=== PATIENT | female | born 1970 | race African-American/Black ===

== ENCOUNTER 2020-11-28 12:28 | Outpatient (REF) | payer MEDICAID, SELFPAY ==
--- NOTE | ~2020-11-28 | US_ITS ---
EXAMINATION: ULTRASOUND PELVIS COMPLETE. CLINICAL INFORMATION: Dyspnea and pneumonia COMPARISON: None TECHNIQUE: Transabdominal and transvaginal ultrasound the pelvis is performed. FINDINGS: The uterus is anteverted measuring 9.0 cm in length, 4.1 cm in AP and 4.1 cm in transverse dimension. The endometrial thickness is 0.3 cm. Right ovary measures 2.2 x 2.1 x 1.6 cm and volume 3.9 mL. It appears unremarkable. Left ovary measures 2.2 x 2.3 x 1.9 cm and volume 5.0 mL. It appears unremarkable. There is no free fluid in the cul-de-sac. US/US pelvic complete IMPRESSION: The uterus and ovaries are unremarkable.
--- NOTE | ~2020-11-28 | US_ITS ---
EXAMINATION: ULTRASOUND PELVIS COMPLETE. CLINICAL INFORMATION: Dyspnea and pneumonia COMPARISON: None TECHNIQUE: Transabdominal and transvaginal ultrasound the pelvis is performed. FINDINGS: The uterus is anteverted measuring 9.0 cm in length, 4.1 cm in AP and 4.1 cm in transverse dimension. The endometrial thickness is 0.3 cm. Right ovary measures 2.2 x 2.1 x 1.6 cm and volume 3.9 mL. It appears unremarkable. Left ovary measures 2.2 x 2.3 x 1.9 cm and volume 5.0 mL. It appears unremarkable. There is no free fluid in the cul-de-sac. US/US transvaginal IMPRESSION: The uterus and ovaries are unremarkable.
== END 2020-11-28 12:29 | disposition home or self-care (01) ==
LOC: HO.US 12:28
PROVIDERS: PCP Registered Nurse; Visit Provider Registered Nurse
DX: N94.6 Dysmenorrhea, unspecified (principal); Z71.89 Other specified counseling
CPT/HCPCS: 76830; 76856

== ENCOUNTER → 2021-12-25 10:30 | Outpatient (BNVA) | payer MEDICAID, SELFPAY | PROVIDERS: PCP Registered Nurse Community Health; Referring Provider Registered Nurse Community Health; Visit Provider Physician Assistant | DX: Z12.11 Encounter for screening for malignant neoplasm of colon (principal); G47.30 Sleep apnea, unspecified | CPT/HCPCS: 99202 ==

== ENCOUNTER 2022-06-01 11:01 | Emergency (ER) | payer MEDICAID, SELFPAY ==
--- NOTE | ~2022-06-01 | CT_ITS ---
EXAMINATION: CT ABDOMEN AND PELVIS WITH CONTRAST CLINICAL INFORMATION: Diffuse abdominal pain COMPARISON: None. TECHNIQUE: Multidetector volumetric imaging was performed from the superior aspect of the liver through the pubic symphysis following administration of 85 mL Omnipaque 300 intravenous contrast. Sagittal and coronal reformatted images were obtained on the technologist workstation.. This CT examination was performed using dose optimization techniques as appropriate, variously including the following: *Automated exposure control *Adjustment of mA and/or kV according to patient size (this includes techniques or standardized protocols for targeted exams where dose is matched to indication/reason for exam; i.e. extremities or head) *Use of iterative reconstruction technique DLP: 1232 mGy-cm FINDINGS: LUNG BASES: Minimal dependent atelectasis. Tiny fat-containing posterior left Boch[place]k diaphragmatic hernia incidentally noted. LIVER, GALLBLADDER, AND BILIARY TREE: Mild diffuse fatty infiltration liver but no focal hepatic lesion nor biliary ductal dilatation The gallbladder is unremarkable with no evidence of radiopaque gallstones, gallbladder wall thickening, or obvious pericholecystic inflammatory changes. PANCREAS: Unremarkable. SPLEEN: Unremarkable. ADRENAL GLANDS: Unremarkable. KIDNEYS AND URETERS: The kidneys are normal in size, shape, and attenuation. No hydronephrosis, hydroureter, or calculi seen. No perinephric stranding. BLADDER: Decompressed GASTROINTESTINAL TRACT: Few scattered colonic diverticula are incidentally noted. Main finding of note is a wall thickening to the terminal ileum and the adjacent distal ileum for approximately 20 cm. Perienteric inflammatory changes are present. No obstructive changes. ABDOMINAL WALL: No significant hernia is appreciated. LYMPHOVASCULAR STRUCTURES: No lymphadenopathy. The aorta is unremarkable. PELVIC VISCERA: Unremarkable. OSSEOUS STRUCTURES: Intramedullary lester seen in the left femur CT/CT abdomen pelvis w IV con IMPRESSION: Wall thickening and perienteric inflammatory change in the terminal ileum and extending to the adjacent distal ileum for approximately 20 cm of length. There is associated perienteric inflammatory change but no obstruction seen. Infectious or inflammatory causes would be strongly favored with this distribution and appearance.
[2022-06-01 11:07] VITALS: BP 150/87; PULSE 83; O2SAT 97
[2022-06-01 11:46] VITALS: BP 159/93; PULSE 82; RESP 20; TEMP 36.3; O2SAT 98; BMI 46.0
[2022-06-01 11:59] LABS: MANUAL DIFF FLAG NO
[2022-06-01 12:04] LABS: Basophils Percent Auto 0.5 % (0-2); Eosinophils Absolute Auto 0.2 X10*3/uL (0.0-0.4); Eosinophils Percent Auto 2.4 % (0-4); Hematocrit 40.1 % (37.0-47.0); Hemoglobin 12.9 g/dl (12.0-16.0); Imm Gran Abs Auto 0.03 X10*3/uL (0.00-0.03); Imm Gran Pct Auto 0.5 % (0.0-0.4); Lymphocytes Absolute Auto 1.8 X10*3/uL (1.2-4.9); Lymphocytes Percent Auto 27.5 % (20-40); Mean Corpuscular HGB Conc 32.2 g/dl (31.0-35.0); Mean Corpuscular Hemoglobin 28.5 pg (27.0-33.0); Mean Corpuscular Volume 88.7 fL (80.0-98.0); Mean Platelet Volume 10.1 fL (9.4-12.3); Monocytes Absolute Auto 0.7 X10*3/uL (0.1-1.2); Monocytes Percent Auto 11.1 % (2-11); Neutrophils Absolute Auto 3.9 x10*3/uL (2.0-8.3); Platelet Count 249 X10*3/uL (160-400); Red Blood Count 4.52 X10*6/uL (4.20-5.50); Red Cell Distribution Width 13.3 % (11.0-16.0); White Blood Count 6.7 X10*3/uL (4.8-10.8)
[2022-06-01 12:14] LABS: COVID-19 Test Negative (Negative); IDNOW Serial# 16C4AD1C
[2022-06-01 12:15] LABS: Anion Gap 13 (12-20); Blood Urea Nitrogen 5 mg/dL (9-16); Calcium 9.1 mg/dL (8.4-10.2); Carbon Dioxide 29 mmol/L (22-29); Chloride 103 mmol/L (96-108); Creatinine Clr Calc Pharmacy 111.6; Estimated Glomerular Filt Rate > 60; Glucose Random 94 mg/dL (60-115); Potassium 4.2 mmol/L (3.3-5.1); Sodium 141 mmol/L (135-145)
--- NOTE | 2022-06-01 15:11 | ED.ABDPAIN ---
HPI - Abdominal Pain General Chief Complaint: Abdominal Pain Stated Complaint: ABD PAIN,DIARRHEA 'S DAYS PER EMS Time Seen by Provider: 06/01/22 15:00 Source: patient and family History of Present Illness HPI narrative: Patient complaining of abdominal pain for the past 3 days. She states she has had 1 episode of loose stools daily. No blood. Typically states she is constipated. No nausea vomiting. No history of similar issues No history of abdominal surgeries. No known sick contacts No respiratory symptoms No vaginal bleeding No urinary symptoms No causative factors of which she is aware. Related Data Home Medications Medication Instructions Recorded Confirmed amlodipine 10 mg tablet 10 mg PO DAILY 12/25/21 06/01/22 aripiprazole 5 mg tablet 5 mg PO DAILY 12/25/21 06/01/22 atorvastatin 20 mg tablet 20 mg PO BEDTIME 12/25/21 06/01/22 clonazepam 1 mg tablet 0.5 - 1 mg PO BID PRN anxiety 12/25/21 06/01/22 dextroamphetamine-amphetamine ER 1 cap PO DAILY attention deficit 12/25/21 06/01/22 30 mg 24hr capsule,extend release hyperactivity disorder (Adderall XR) fluticasone propionate 50 2 spray intranasal DAILY PRN 12/25/21 06/01/22 mcg/actuation nasal Allergy Symptoms spray,suspension hydroxyzine pamoate 100 mg capsule 100 mg PO BID PRN anxiety 12/25/21 06/01/22 lisinopril 40 mg tablet 40 mg PO DAILY 12/25/21 06/01/22 loratadine 10 mg tablet 10 mg PO DAILY PRN Allergy Symptoms 12/25/21 06/01/22 mirtazapine 30 mg tablet 30 mg PO BEDTIME insomnia 12/25/21 06/01/22 oxybutynin chloride 10 mg 10 mg PO DAILY 12/25/21 06/01/22 tablet,extended release 24 hr tramadol 50 mg tablet 50 mg PO TID PRN pain 12/25/21 06/01/22 cholecalciferol (vitamin D3) 1,250 1,250 mcg PO BOSS@0900 06/01/22 06/01/22 mcg (50,000 unit) capsule furosemide 20 mg tablet 1 tab PO DAILY 06/01/22 06/01/22 ibuprofen 800 mg tablet 1 tab PO TID 06/01/22 06/01/22 metoprolol succinate 50 mg 1 tab PO DAILY 06/01/22 06/01/22 tablet,extended release 24 hr sumatriptan succinate 50 mg tablet 50 mg PO DAILY MRX1 PRN Migraine 06/01/22 06/01/22 Headache Previous Rx's Medication Instructions Recorded docusate sodium 100 mg capsule 200 mg PO BEDTIME #60 caps 12/25/21 (Colace) polyethylene glycol 3350 17 gram 17 g PO DAILY #30 ea 12/25/21 oral powder packet (Miralax) amoxicillin 875 mg-potassium 1 tab PO BID #20 tabs 06/01/22 clavulanate 125 mg tablet oxycodone-acetaminophen 5 mg-325 1 tab PO Q6H PRN pain #6 tabs 06/01/22 mg tablet (Percocet) Allergies Allergy/AdvReac Type Severity Reaction Status Date / Time No Known Allergies Allergy Unverified 12/25/21 11:09 Review of Systems Comments: Denies fevers and chills Comments: No chest pain or cough Comments: No difficulty breathing Comments: Abdominal pain with 1 episode daily of loose stools. No nausea or vomiting Comments: No dysuria Comments: No rash [facility] Past Medical History [facility] Narrative: Smokes tobacco. Denies drugs alcohol and marijuana Surgical History History of surgery on lower extremity Hx of varicose vein ligation Family History Family History Father Cancer HTN (hypertension) Mother Diabetes Brother Diabetes Sister HTN (hypertension) Family/Other HTN (hypertension) Brother Cancer Social History Social History Advance Directives: No Advance Directives Information Provided: Yes Physical Exam ED Vital Signs: Vital Signs - 24 hr 06/01/22 11:46 06/01/22 16:35 06/01/22 19:36 Temperature 97.4 F 98.3 F 98.1 F Pulse Rate 82 68 60 Respiratory Rate 20 18 17 Blood Pressure 159/93 H 107/64 141/84 H Pulse Oximetry 98 97 94 Oxygen Delivery Method Room Air Room Air Room Air BMI result Body Mass Index 46.0 Const Other: Awake and alert. Appears uncomfortable Resp Other: Clear and equal bilaterally without respiratory distress Cardio Other: Regular rate and rhythm without murmurs rubs or gallops GI Other: Soft nondistended. Tender diffusely. Greatest pain tenderness periumbilically. Guarding without rebound Skin Other: Warm and dry without rash Neuro Other: No gross neuro deficits Course Course Course Narrative: Patient with diffuse abdominal pain and minimal diarrhea. Differential of colitis Bowel obstruction Gastroenteritis Diverticulitis Peptic ulcer disease Pancreatitis 19:53. Patient is feeling much improved after medication. CT scan shows inflammation of the terminal ileum consistent with inflammatory or infectious process. Given acute nature, it favors infectious etiology. If symptoms continue, however she will require GI consult for possible inflammatory bowel disease. In the meantime will give 1 dose of IV Zosyn and discharged home on Augmentin. MDM - Abdominal Pain Lab Data Result diagrams: 06/01/22 11:55 06/01/22 11:55 Labs: Lab Results 06/01/22 06/01/22 06/01/22 Range/Units 11:55 11:55 11:55 WBC 6.7 (4.8-10.8) X10*3/uL RBC 4.52 (4.20-5.50) X10*6/uL Hgb 12.9 (12.0-16.0) g/dl Hct 40.1 (37.0-47.0) % MCV 88.7 (80.0-98.0) fL MCH 28.5 (27.0-33.0) pg MCHC 32.2 (31.0-35.0) g/dl RDW 13.3 (11.0-16.0) % Plt Count 249 (160-400) X10*3/uL MPV 10.1 (9.4-12.3) fL Immature Gran % (Auto) 0.5 H (0.0-0.4) % Neut % (Auto) 58.0 (45-73) % Lymph % (Auto) 27.5 (20-40) % [place] % (Auto) 11.1 H (2-11) % Eos % (Auto) 2.4 (0-4) % Baso % (Auto) 0.5 (0-2) % Lymph # (Auto) 1.8 (1.2-4.9) X10*3/uL [place] # (Auto) 0.7 (0.1-1.2) X10*3/uL Eos # (Auto) 0.2 (0.0-0.4) X10*3/uL Baso # (Auto) 0.0 (0.0-0.2) X10*3/uL Abs Immat Gran (auto) 0.03 (0.00-0.03) X10*3/uL Absolute Neuts (auto) 3.9 (2.0-8.3) x10*3/uL Absolute Nucleated RBC 0.000 (0.0-0.012) X10*3/uL Nucleated RBC % (auto) 0.0 (0.0-0.2) /100WBC Sodium 141 (135-145) mmol/L Potassium 4.2 (3.3-5.1) mmol/L Chloride 103 (96-108) mmol/L Carbon Dioxide 29 (22-29) mmol/L Anion Gap 13 (12-20) BUN 5 L (9-16) mg/dL Creatinine 0.84 (0.5-1.4) mg/dL Estim Creat Clear Calc 111.6 Estimated GFR > 60 Random Glucose 94 (60-115) mg/dL Calcium 9.1 (8.4-10.2) mg/dL Total Bilirubin 0.9 (0.0-1.0) mg/dL Direct Bilirubin 0.3 (0.0-0.5) mg/dL AST 19 (5-31) U/L ALT 17 (0-31) U/L Alkaline Phosphatase 104 (39-117) U/L Total Protein 6.7 (6.5-8.0) g/dL Albumin 4.0 (3.5-5.0) g/dL Lipase 8 (8-78) U/L COVID-19 (PONCHO) Negative (Negative) COVID-19 Clin Com See Note Discharge Plan Discharge Clinical Impression: Enteritis Patient Disposition: Home, Self-Care Instructions: Enteritis (ED) Prescriptions: New amoxicillin-pot clavulanate 875-125 mg tablet 1 tab PO BID Qty: 20 0RF oxycodone-acetaminophen [Percocet] 5-325 mg tablet 1 tab PO Q6H PRN (Reason: pain) Qty: 6 0RF Rx Instructions: Partial Fill upon patient request. No Action ibuprofen 800 mg tablet 1 tab PO TID metoprolol succinate 50 mg tablet extended release 24 hr 1 tab PO DAILY sumatriptan succinate 50 mg tablet 50 mg PO DAILY MRX1 PRN (Reason: Migraine Headache) furosemide 20 mg tablet 1 tab PO DAILY cholecalciferol (vitamin D3) 1,250 mcg (50,000 unit) capsule 1,250 mcg PO BOSS@0900 aripiprazole 5 mg tablet 5 mg PO DAILY hydroxyzine pamoate 100 mg capsule 100 mg PO BID PRN (Reason: anxiety) tramadol 50 mg tablet 50 mg PO TID PRN (Reason: pain) lisinopril 40 mg tablet 40 mg PO DAILY mirtazapine 30 mg tablet 30 mg PO BEDTIME amlodipine 10 mg tablet 10 mg PO DAILY oxybutynin chloride 10 mg tablet extended release 24hr 10 mg PO DAILY clonazepam 1 mg tablet 0.5 - 1 mg PO BID PRN (Reason: anxiety) atorvastatin 20 mg tablet 20 mg PO BEDTIME dextroamphetamine-amphetamine [Adderall XR] 30 mg capsule,extended release 24hr 1 cap PO DAILY loratadine 10 mg tablet 10 mg PO DAILY PRN (Reason: Allergy Symptoms) fluticasone propionate 50 mcg/actuation spray,suspension 2 spray intranasal DAILY PRN (Reason: Allergy Symptoms) polyethylene glycol 3350 [Miralax] 17 gram powder in packet 17 g PO DAILY Qty: 30 5RF docusate sodium [Colace] 100 mg capsule 200 mg PO BEDTIME Qty: 60 5RF
[2022-06-01] MEDS: ondansetron HCL 4 MG/2 ML VIAL IVPUSH (16:03)
[2022-06-01] MEDS: Ketorolac Tromethamine 30 MG/ML VIAL IVPUSH (16:04)
[2022-06-01] MEDS: 0.9 % Sodium Chloride 1,000 ML 999 ML IV ×2 (16:05→17:38)
[2022-06-01 16:22] LABS: Alanine Aminotransferase 17 U/L (0-31); Alkaline Phosphatase 104 U/L (39-117); Aspartate Amino Transferase 19 U/L (5-31); Bilirubin Direct 0.3 mg/dL (0.0-0.5); Bilirubin Total 0.9 mg/dL (0.0-1.0); Lipase 8 U/L (8-78); Total Protein 6.7 g/dL (6.5-8.0)
[2022-06-01 16:35] VITALS: BP 107/64; PULSE 68; RESP 18; TEMP 36.8; O2SAT 97
[2022-06-01] MEDS: iohexoL 350 MG/ML 100 ML INFUS..BTL IV (17:32)
[2022-06-01] MEDS: HYDROmorphone HCl 0.5 MG/0.5 ML SYRINGE IVPUSH (17:37)
[2022-06-01] MEDS: Piperacillin Sodium/Tazobactam 3.375 GM in 0.9 % Sodium Chloride 50 ML IV (19:08)
[2022-06-01 19:36] VITALS: BP 141/84; PULSE 60; RESP 17; TEMP 36.7; O2SAT 94
--- NOTE | 2022-06-01 19:52 | PHA.MEDREC ---
Pharmacy Consult ? Medication Reconciliation Pharmacy has completed the medication reconciliation.
[2022-06-01 20:52] VITALS: BP 140/72; PULSE 72; RESP 20; TEMP 36.8; O2SAT 94
--- NOTE | 2022-06-01 20:59 | PC.NURSE ---
pt a&o denies any sob or chest pain. Reviewed discharge instructions with pt. pt verbalized understanding. Notified STEPHANIE Willis .
== END 2022-06-01 21:12 | disposition home or self-care (01) ==
PROVIDERS: Emergency Provider Emergency Medicine; PCP Registered Nurse Community Health
DX: K52.9 Noninfective gastroenteritis and colitis, unspecified (principal); R10.9 Unspecified abdominal pain; E66.9 Obesity, unspecified; Z68.42 Body mass index [BMI] 45.0-49.9, adult; Z20.822 Contact with and (suspected) exposure to COVID-19; Z79.02 Long term (current) use of antithrombotics/antiplatelets; Z79.899 Other long term (current) drug therapy
CPT/HCPCS: 74177; 80048; 80076; 83690; 85025; 87635; 96361; 96374; 96375; 99283; 99284; J1170; J1885; J2405; J2543; Q9967

== ENCOUNTER 2022-08-27 17:13 | Outpatient (REF) | payer MEDICAID, SELFPAY | END 2022-08-27 17:14 | disposition home or self-care (01) | LOC: HO.HOSX 17:13 | PROVIDERS: Visit Provider Orthopaedic Surgery | DX: Z13.89 Encounter for screening for other disorder (principal) ==

== ENCOUNTER 2022-08-28 | Outpatient (REF) | payer MEDICAID, SELFPAY ==
--- NOTE | ~2022-08-28 | XR_ITS ---
EXAMINATION: XR ANKLE, RIGHT CLINICAL INFORMATION: Pain. COMPARISON: None TECHNIQUE: AP, lateral, and mortise views of the right ankle. FINDINGS: Bony alignment and mineralization are normal. The ankle mortise is intact. No fracture, dislocation or right joint ankle effusion is seen. Boehler's angle is normal. There are large posterior and small plantar calcaneal spurs. There is generalized soft tissue swelling of the right ankle, most pronounced medially. No soft tissue gas or foreign body is seen. XR/XR ankle RT min 3V IMPRESSION: 1. No fracture, dislocation or right ankle joint effusion is seen. 2. There are right calcaneal spurs. 3. There is soft tissue swelling of the right ankle, most pronounced medially.
== END 2022-08-28 00:01 | disposition home or self-care (01) ==
LOC: HO.HOSX
PROVIDERS: Visit Provider Orthopaedic Surgery
DX: M76.61 Achilles tendinitis, right leg (principal); E66.9 Obesity, unspecified
CPT/HCPCS: 73610; 99202

== ENCOUNTER 2023-01-06 11:00 | Outpatient (RCR) | payer MEDICAID, SELFPAY ==
--- NOTE | 2022-11-04 17:18 | MHC.PT.EP ---
[facility] [place] [facility] [place] [facility] [place] [facility] [address] [phone] F: [phone] F: [phone] F: [phone] F: [phone] Physical Therapy Plan of Care Date of Evaluation: Date of Surgery: Diagnosis: RIGHT achilles tendinitis Assessment: Patient is a 51 y.o. female who is referred to PT by Sukhjinder Sales MD with Dx of Right Achilles Tendonitis. Patient impairments include pain, limited ROM, weakness, antalgic gait. Patient current functional limitations are prolonged standing and walking (groceries), stair use (one at a time), cook/clean, bending. Patient will benefit from skilled PT to address aforementioned impairments and functional limitations to meet established goals. Frequency and Duration: The patient will be seen 2x/week for 4 weeks Short Term Goals: 2 weeks Patient demonstrates consistency and independence with HEP to self manage symptoms. Patient is able to wear sneaker with appropriate heel lift to reduce strain to R LE. Chcf Goals: 4 weeks: She presents with increased R ankle DF AROM 0 degrees to normalize gait pattern. Patient presents with incrased R ankle eversion strength 5/5 to walk outdoors long distances. Treatment Plan: Modalities to reduce pain, spasms and effusion. Manual therapy to restore motion and function. Therapeutic exercise to improve strength and flexibility. Neuromuscular re-education for posture and balance. Therapeutic activities to return to functional activities of daily living. Electronically signed by: Lashay Quintana, PT, DPT Please sign and return to therapist. Thank you for your referral.
--- NOTE | 2023-01-27 10:58 | MHC.PT.DC ---
[facility] [place] [facility] [place] [facility] [place] Office [address] Lavon Thapa [address] [facility] [phone] F: [phone] F: [phone] F: [phone] F: [phone] Physical Therapy Discharge Report Diagnosis: RIGHT achilles tendinitis Date of Surgery: Date of Evaluation: 11/04/22 Date of Discharge: 01/06/23 Treatments to Date: 6 Cancellations to Date: 4 No Shows to Date: 4 Discharge Status: Visit Non-compliance Discharge Summary: Assessment from last attended visit: She is tender in achilles insertion, bursitis is reduced from initial visit. I encouraged her to continue with stretching calf/heel 2-3x/day, especially if she is doing more walking. Also encouraged her to use shoes with life when walking even in her home so avoid compensations causing more strain to her achilles. Will continue 1x/week. She ceased attending PT after this visit on her own accord and is discharged from PT at this time. Electronically signed by: Lashay Quintana, PT, DPT Please sign and return to therapist. Thank you for your referral.
== END 2023-01-27 10:58 | disposition home or self-care (01) ==
LOC: HO.PT 11:00
PROVIDERS: PCP Nurse Practitioner Primary Care; Visit Provider Orthopaedic Surgery
DX: M76.61 Achilles tendinitis, right leg (principal)
CPT/HCPCS: 97035; 97110; 97112; 97140; 97161

== ENCOUNTER → 2023-03-29 10:28 | Outpatient (BNVA) | payer MEDICAID, SELFPAY | PROVIDERS: PCP Nurse Practitioner Primary Care; Visit Provider Physician Assistant Surgical ==

== ENCOUNTER 2023-04-09 14:39 | Outpatient (REF) | payer MEDICAID, SELFPAY ==
[2023-04-09 16:38] LABS: Estimated Average Glucose 108 mg/dL; Hemoglobin A1c % 5.4 %
[2023-04-09 16:40] LABS: Anion Gap 13 (12-20); Blood Urea Nitrogen 7 mg/dL (9-16); Calcium 10.2 mg/dL (8.4-10.2); Carbon Dioxide 27 mmol/L (22-29); Chloride 102 mmol/L (96-108); Cholesterol 220 mg/dL; Estimated Glomerular Filt Rate > 60; Glucose Random 86 mg/dL (60-115); HDL Cholesterol 47 mg/dL; LDL Cholesterol Calculated 143 mg/dl; Potassium 3.9 mmol/L (3.3-5.1); Sodium 138 mmol/L (135-145); Triglycerides 153 mg/dL
[2023-04-09 17:20] LABS: Creatinine Urine 217.77 mg/dL; Microalbum/Creatinine Ratio Ur 8.7 ug/mg cr
[2023-04-15 13:48] LABS: VITAMIN D (1,25 OH) D3 40 pg/mL; Vit D (1,25-Dihydroxy) Total 40 pg/mL (18-72); Vitamin D (1,25 OH) D2 <8 pg/mL
== END 2023-04-09 14:40 | disposition home or self-care (01) ==
LOC: HO.HHCL 14:39
PROVIDERS: Visit Provider Nurse Practitioner Primary Care
DX: Z00.00 Encounter for general adult medical examination without abnormal findings (principal); I10 Essential (primary) hypertension
CPT/HCPCS: 36415; 80048; 80061; 82043; 82652; 83036

== ENCOUNTER 2023-05-20 08:28 | Outpatient (AMB) | payer MEDICAID, SELFPAY ==
--- NOTE | 2023-05-20 08:36 | MHC.OFFVISWM ---
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 Her goal is to have healthy weight. She reports first being concerned about her weight 6 years when moved to [place]. She has tried multiple methods of weight loss including keto without permanent results. She lives with her partner. She is unemployed. She has therapist - sees every 1-2 weeks and psychiatrist. DOROTHY = 10 She wakes at: 10am, bed at 2 am Breakfast: coffee - 1 cup with whole milk and 3 tsp sugar. 2 - 3 hours - 2 eggs boiled and a hot dog - sometimes bread Lunch: 1-2 pm - rice/beans, beef or pork or chicken.with potatoes. doesn't eat vegetables, Coke or Pepsi Dinner: 12:30 am -- grapefruit or corn flakes Other snacks: eats crackers and other things - 2 tiems per day Liquids: soda most days, fruit juice Alcohol intake: none, tobacco: 10 cig/day or more, marijuana: none Exercise: has right foot pain.no equipment or membership Last mammogram: due now, will make appt Last pap smear: 6 months ago control method: post menopausal DOROTHY: 10 ESS: 22, not using CPAP GERD: 5 QOL: 96 PFSH Medical History (Updated 05/20/23 @ 09:34 by Ashlyn Kern PA-C) Obese Surgical History (Updated 03/29/23 @ 11:10 by Betty Magallon LPN) History of surgery on lower extremity Hx of varicose vein ligation Family History Father HTN (hypertension) Cancer Mother Diabetes Brother Diabetes Sister HTN (hypertension) Family/Other HTN (hypertension) Brother Cancer Social History (Updated 03/29/23 @ 11:11 by Betty Magallon LPN) Tobacco use type: Cigarette Cigarettes Per Day: 10 Current occupational status: disabled Physical Exam Vital Signs: Last Vital Signs Temp 96.9 F 05/20/23 08:37 Pulse 83 05/20/23 08:37 Pulse Ox 97 05/20/23 08:37 Oxygen Delivery Method Room Air 05/20/23 08:37 BMI result Body Mass Index 47.3 Const General: cooperative, no acute distress and well developed Nutritional Appearance: obese Orientation/consciousness: patient oriented x3 HEENT Head: Yes normal to inspection Neck Neck: Yes normal visual inspection Thyroid: Thyroid normal Resp Effort & Inspection: normal respiratory effort Auscultation: clear to auscultation bilaterally Cardio Rate: regular rate Rhythm: regular rhythm Heart sounds: S1 normal heart sound present, S2 normal heart sound present and no murmurs GI Inspection: No distended and Yes obesity Palpation (GI): Soft to palpation, nontender and no guarding Skin General skin exam: no rashes or lesions noted and other (warm and dry) Wounds: no wounds Hair: normal Neuro General: patient oriented x3 Extrem General: Yes no pedal edema and Yes no calf tenderness Psych Attitude: cooperative Thought process: Normal thought process present Thought content: Normal thought content present Insight: Good insight present (Psych) Judgement: Good judgement present (Psych) Assessment & Plan Assessment & Plan (1) Morbid exogenous obesity: Code(s): E66.01 - Morbid (severe) obesity due to excess calories Plan: This is a 52 yo woman with morbid obesity who will start SWL program to prepare for bariatric surgery. Blood work, h pylori , CXR, ECG, Abd ULS and UGI have been ordered. She is being scheduled for RD and BH initial consultations. She will start SWL classes and watch at 3 classes before her next appt with Fauzia. Bob MUST use CPAP every night for at least 6 hours Can NOT miss her BP meds - not taken this am. 1. Adequate sleep of 7-8 hours per night discussed 2. Healthy meal plan - stop skipping meals and stop all sweetened drinks and snacks All meals/MR's need to take 20 minutes to complete 10am - 30 gram shake 2 pm- dinner of 12 forks lean protein, 12 forks vegetable, 1 serving fruit 5 pm - 30 gram shake 10 pm- bar or yogurt Exercise - Cardio --LS 2 mile videos every other day. Pt will purchase body composition analyzer (recommended list given to patient) and weight herself weekly. Next appt with me in 3 weeks. Text me with any questions and weekly weights. Patient is morbidly obese and is not considered stable at this time.?I spent a total of 60 minutes reviewing/updating records, examining the patient and counseling the patient on weight management as detailed above. (2) Sleep apnea: Comment: Reportedly diagnosed sleep apnea does not use CPAP, awaiting repeat testing Will await input from PCP follows-prior to scheduling colonoscopy Code(s): G47.30 - Sleep apnea, unspecified (3) Hypercholesteremia: Code(s): E78.00 - Pure hypercholesterolemia, unspecified (4) HTN (hypertension) with goal to be determined: Code(s): I10 - Essential (primary) hypertension (5) ADHD: Code(s): F90.9 - Attention-deficit hyperactivity disorder, unspecified type (6) Depression with anxiety: Code(s): F41.8 - Other specified anxiety disorders Orders: Orders Vitamin B12 and Folate Today E66.01 - Morbid (severe) obesity due to excess calories, E78.00 - Pure hypercholesterolemia, unspecified, G47.30 - Sleep apnea, unspecified, I10 - Essential (primary) hypertension, Z01.818 - Encounter for other preprocedural examination Comprehensive Met. Panel Today E66.01 - Morbid (severe) obesity due to excess calories, E78.00 - Pure hypercholesterolemia, unspecified, G47.30 - Sleep apnea, unspecified, I10 - Essential (primary) hypertension, Z01.818 - Encounter for other preprocedural examination C Reactive Protein Today E66.01 - Morbid (severe) obesity due to excess calories, E78.00 - Pure hypercholesterolemia, unspecified, G47.30 - Sleep apnea, unspecified, I10 - Essential (primary) hypertension, Z01.818 - Encounter for other preprocedural examination Ferritin Today E66.01 - Morbid (severe) obesity due to excess calories, E78.00 - Pure hypercholesterolemia, unspecified, G47.30 - Sleep apnea, unspecified, I10 - Essential (primary) hypertension, Z01.818 - Encounter for other preprocedural examination Hemoglobin A1c Today E66.01 - Morbid (severe) obesity due to excess calories, E78.00 - Pure hypercholesterolemia, unspecified, G47.30 - Sleep apnea, unspecified, I10 - Essential (primary) hypertension, Z01.818 - Encounter for other preprocedural examination Insulin Today E66.01 - Morbid (severe) obesity due to excess calories, E78.00 - Pure hypercholesterolemia, unspecified, G47.30 - Sleep apnea, unspecified, I10 - Essential (primary) hypertension, Z01.818 - Encounter for other preprocedural examination IRON PROFILE Today E66.01 - Morbid (severe) obesity due to excess calories, E78.00 - Pure hypercholesterolemia, unspecified, G47.30 - Sleep apnea, unspecified, I10 - Essential (primary) hypertension, Z01.818 - Encounter for other preprocedural examination Lipid Panel Today E66.01 - Morbid (severe) obesity due to excess calories, E78.00 - Pure hypercholesterolemia, unspecified, G47.30 - Sleep apnea, unspecified, I10 - Essential (primary) hypertension, Z01.818 - Encounter for other preprocedural examination PTHI Today E66.01 - Morbid (severe) obesity due to excess calories, E78.00 - Pure hypercholesterolemia, unspecified, G47.30 - Sleep apnea, unspecified, I10 - Essential (primary) hypertension, Z01.818 - Encounter for other preprocedural examination TSH reflex Free T4 Today E66.01 - Morbid (severe) obesity due to excess calories, E78.00 - Pure hypercholesterolemia, unspecified, G47.30 - Sleep apnea, unspecified, I10 - Essential (primary) hypertension, Z01.818 - Encounter for other preprocedural examination Vitamin A Today E66.01 - Morbid (severe) obesity due to excess calories, E78.00 - Pure hypercholesterolemia, unspecified, G47.30 - Sleep apnea, unspecified, I10 - Essential (primary) hypertension, Z01.818 - Encounter for other preprocedural examination Vitamin B1 Today E66.01 - Morbid (severe) obesity due to excess calories, E78.00 - Pure hypercholesterolemia, unspecified, G47.30 - Sleep apnea, unspecified, I10 - Essential (primary) hypertension, Z01.818 - Encounter for other preprocedural examination Vitamin D 25-OH Total Today E66.01 - Morbid (severe) obesity due to excess calories, E78.00 - Pure hypercholesterolemia, unspecified, G47.30 - Sleep apnea, unspecified, I10 - Essential (primary) hypertension, Z01.818 - Encounter for other preprocedural examination Zinc Today E66.01 - Morbid (severe) obesity due to excess calories, E78.00 - Pure hypercholesterolemia, unspecified, G47.30 - Sleep apnea, unspecified, I10 - Essential (primary) hypertension, Z01.818 - Encounter for other preprocedural examination ECG 12 lead EKG Today E66.01 - Morbid (severe) obesity due to excess calories, E78.00 - Pure hypercholesterolemia, unspecified, G47.30 - Sleep apnea, unspecified, I10 - Essential (primary) hypertension, Z01.818 - Encounter for other preprocedural examination FL upper GI w air Today E66.01 - Morbid (severe) obesity due to excess calories, E78.00 - Pure hypercholesterolemia, unspecified, G47.30 - Sleep apnea, unspecified, I10 - Essential (primary) hypertension, Z01.818 - Encounter for other preprocedural examination Complete Blood Count Auto Diff Today E66.01 - Morbid (severe) obesity due to excess calories, E78.00 - Pure hypercholesterolemia, unspecified, G47.30 - Sleep apnea, unspecified, I10 - Essential (primary) hypertension, Z01.818 - Encounter for other preprocedural examination H Pylori Breath Test Today E66.01 - Morbid (severe) obesity due to excess calories, E78.00 - Pure hypercholesterolemia, unspecified, G47.30 - Sleep apnea, unspecified, I10 - Essential (primary) hypertension, Z01.818 - Encounter for other preprocedural examination US abdomen comp w elastography Today E66.01 - Morbid (severe) obesity due to excess calories, E78.00 - Pure hypercholesterolemia, unspecified, G47.30 - Sleep apnea, unspecified, I10 - Essential (primary) hypertension, Z01.818 - Encounter for other preprocedural examination XR chest 2V Today E66.01 - Morbid (severe) obesity due to excess calories, E78.00 - Pure hypercholesterolemia, unspecified, G47.30 - Sleep apnea, unspecified, I10 - Essential (primary) hypertension, Z01.818 - Encounter for other preprocedural examination Referrals Behavioral Health Referral E66.01 - Morbid (severe) obesity due to excess calories, E78.00 - Pure hypercholesterolemia, unspecified, G47.30 - Sleep apnea, unspecified, I10 - Essential (primary) hypertension, Z01.818 - Encounter for other preprocedural examination Nutrition/Dietitian Referral E66.01 - Morbid (severe) obesity due to excess calories, E78.00 - Pure hypercholesterolemia, unspecified, G47.30 - Sleep apnea, unspecified, I10 - Essential (primary) hypertension, Z01.818 - Encounter for other preprocedural examination Coding Level of Care Code New Pt Level 5 (73868) Diagnoses Morbid exogenous obesity E66.01 Sleep apnea G47.30 Hypercholesteremia E78.00 HTN (hypertension) with goal to be determined I10 ADHD F90.9 Depression with anxiety F41.8
[2023-05-20 08:37] VITALS: BP 162/98; PULSE 83; TEMP 36.1; O2SAT 97; BMI 47.3
== END 2023-05-20 09:33 | disposition home or self-care (01) ==
PROVIDERS: PCP Nurse Practitioner Primary Care; Visit Provider Physician Assistant
DX: E66.01 Morbid (severe) obesity due to excess calories (principal); Z68.42 Body mass index [BMI] 45.0-49.9, adult
CPT/HCPCS: 99205

== ENCOUNTER → 2023-05-20 08:28 | Outpatient (BNVA) | payer MEDICAID, SELFPAY | PROVIDERS: PCP Nurse Practitioner Primary Care; Visit Provider Physician Assistant | DX: E66.01 Morbid (severe) obesity due to excess calories (principal); Z68.42 Body mass index [BMI] 45.0-49.9, adult; G47.30 Sleep apnea, unspecified; E78.00 Pure hypercholesterolemia, unspecified; I10 Essential (primary) hypertension; F90.9 Attention-deficit hyperactivity disorder, unspecified type; F41.8 Other specified anxiety disorders | CPT/HCPCS: 99202; 99205 ==

== ENCOUNTER → 2023-07-13 09:26 | Outpatient (BNVA) | payer MEDICAID, SELFPAY | PROVIDERS: PCP Nurse Practitioner Primary Care; Visit Provider Dietitian, Registered | DX: Z53.29 Procedure and treatment not carried out because of patient's decision for other reasons (principal); F41.9 Anxiety disorder, unspecified; Z59.811 Housing instability, housed, with risk of homelessness | CPT/HCPCS: 97802 ==

== ENCOUNTER 2023-11-05 11:00 | Outpatient (RCR) | payer MEDICAID, SELFPAY ==
--- NOTE | 2023-09-23 10:57 | MHC.PT.EP ---
[facility] [place] [facility] [place] [facility] [place] [facility] [address] [phone] F: [phone] F: [phone] F: [phone] F: [phone] Physical Therapy Plan of Care Date of Evaluation: 09/21/23 Date of Surgery: Diagnosis: chronic R Achilles tendinitis Assessment: Pt is a 52yo female who was referred to PT to work on home stretching protocol for Achilles tendinosis. Skilled PT indicated to improve R ankle ROM and strength, normalize gait and promote increased balance/functional mobility. Pt in agreement with POC and is motivated to participate. Frequency and Duration: The patient will be seen 2x/week, x 4 weeks Short Term Goals: 1. In 2 weeks, patient will demonstrate R ankle DF improvement 5 degrees with knee flexed and extended. 2. In 2 weeks, patient will be I with HEP for daily stretching and CP application as needed. Ornamental Ironworker Goals: 1. In 4 weeks, increase R ankle MMT all planes to 5/5. 2. In 4 weeks, patient will demonstrate ability to go up and down 6 inch step with reciprocal pattern and no increased pain from baseline. 3. In 4 weeks, patient will be able to complete R SLS with good ankle strategy noted x 15 seconds. Treatment Plan: Modalities to reduce pain, spasms and effusion. Manual therapy to restore motion and function. Therapeutic exercise to improve strength and flexibility. Neuromuscular re-education for posture and balance. Therapeutic activities to return to functional activities of daily living. Electronically signed by: Kate Weeks PT, DPT Please sign and return to therapist. Thank you for your referral.
== END 2024-07-26 12:33 | disposition home or self-care (01) ==
LOC: HO.PT 11:00
PROVIDERS: PCP Nurse Practitioner Primary Care; Visit Provider Orthopaedic Surgery
DX: M76.61 Achilles tendinitis, right leg (principal)
CPT/HCPCS: 97110; 97116; 97140; 97161; 97530

== ENCOUNTER 2023-11-12 20:34 | Emergency (ER) | payer MEDICAID, SELFPAY ==
[2023-11-12 20:41] VITALS: BP 184/106; PULSE 115; O2SAT 98
[2023-11-12 20:54] VITALS: BP 170/98; PULSE 99; RESP 20; TEMP 36.7; O2SAT 97; BMI 49.7
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
[2023-11-12] MEDS: Ibuprofen 600 MG TABLET PO (23:46)
[2023-11-12] MEDS: Bacitracin Oint 0.9 GM PACKET 1 APPL TOPICAL (23:46)
[2023-11-12] MEDS: Lidocaine HCl 1 % MPF 5 ML VIAL 10 ML INFILTRATI (23:47)
[2023-11-13 00:21] VITALS: BP 147/87; PULSE 81; RESP 18; TEMP 36.8; O2SAT 97
== END 2023-11-13 00:27 | disposition home or self-care (01) ==
PROVIDERS: Emergency Provider Internal Medicine; PCP Nurse Practitioner Primary Care
DX: S01.81XA Laceration without foreign body of other part of head, initial encounter (principal); Y04.0XXA Assault by unarmed brawl or fight, initial encounter; Y93.9 Activity, unspecified; Y92.9 Unspecified place or not applicable; Y99.9 Unspecified external cause status
CPT/HCPCS: 12013; 99284

== ENCOUNTER 2024-01-28 10:07 | Outpatient (REF) | payer MEDICAID, SELFPAY ==
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
== END 2024-01-28 10:08 | disposition home or self-care (01) ==
LOC: HO.HHCX 10:07
PROVIDERS: Visit Provider Nurse Practitioner Primary Care
DX: R09.81 Nasal congestion (principal); Z87.828 Personal history of other (healed) physical injury and trauma
CPT/HCPCS: 70160

== ENCOUNTER 2024-05-02 10:47 | Outpatient (REF) | payer MEDICAID, SELFPAY ==
[2024-05-02 12:16] LABS: Alanine Aminotransferase 10 U/L (0-31); Albumin Level 4.1 g/dL (3.5-5.0); Alkaline Phosphatase 96 U/L (39-117); Anion Gap 7 (12-20); Aspartate Amino Transferase 14 U/L (5-31); Bilirubin Total 0.8 mg/dL (0.0-1.0); Blood Urea Nitrogen 5 mg/dL (9-16); Calcium 9.5 mg/dL (8.4-10.2); Carbon Dioxide 30 mmol/L (22-29); Chloride 106 mmol/L (96-108); Cholesterol 146 mg/dL (<200); Estimated Glomerular Filt Rate > 60; Glucose Random 90 mg/dL (60-115); HDL Cholesterol 41 mg/dL (>40); LDL Cholesterol Calculated 90 mg/dL (<100); Potassium 4.2 mmol/L (3.3-5.1); Sodium 139 mmol/L (135-145); Total Protein 7.2 g/dL (6.5-8.0); Triglycerides 76 mg/dL (<150)
[2024-05-02 12:17] LABS: Estimated Average Glucose 108 mg/dL; Hemoglobin A1c % 5.4 % (<6.0)
[2024-05-02 14:12] LABS: Creatinine Urine 176.65 mg/dL; Microalbum/Creatinine Ratio Ur 7.9 ug/mg cr (<30)
== END 2024-05-02 10:48 | disposition home or self-care (01) ==
LOC: HO.HHCL 10:47
PROVIDERS: Visit Provider Nurse Practitioner Primary Care
DX: E78.00 Pure hypercholesterolemia, unspecified (principal)
CPT/HCPCS: 36415; 80053; 80061; 82043; 82570; 83036

== ENCOUNTER 2024-12-27 08:33 | Outpatient (AMB) | payer MEDICAID, SELFPAY ==
--- NOTE | 2024-12-27 08:43 | MHC.OFFVIS ---
Vital Signs 12/27/24 08:55 Height 5 ft 5 in Weight 240 lb BMI 39.9 BP 128/76 Blood Pressure Location Lt brachial Position Sitting Pulse 80 Oxygen Delivery Method Room Air Intake Visit Reasons: GERD/Pre Colonoscopy- Katarzyna pt Intake Note: Patient complex follow up for pre colonoscopy screening. Katarzyna pt mauricio 12/25/21. Patient cc: constipation with hemorrhoids, abdominal pain pain with bloating on and off, GERD with burning sensation. Denies any other GI issues for today. Staff Air Tactical Officer Required: Yes Staff Air Tactical Officer Name: Kev Romero [id number] Accompanied by: Self / Same As Patient Allergies SOAP Allergy (Intermediate, Uncoded 11/12/23 20:53) Rash HPI HPI GERD/Pre Colonoscopy- Katarzyna pt: Details: Patient is a 54-year-old female with PMH of obesity, depression with anxiety, ADHD, sleep apnea, hypertension and hyperlipidemia,. Last visit with [facility] 12/25/2021 for colonoscopy screening. However, screening was not complete due to lost to follow up. Pt is here today for pre-screening for colonoscopy. She reports constipation with intermittent ab pain X 3 years. Reports two BMs daily, type 4 on [facility] stool chart. Shares epigastric/periumbilical ab pain occurs 3x/week, with or without meals that lasts up to 20 minutes. She does experience nausea but attributes this to the weight loss medication she is prescribed. 2 episodes of blood in stools in her life time, last episode approx 6 months ago. Endorses hemorrhoids. Associated symptoms: flatulence, pyrosis Aggravating factors: eating Alleviating attempts: celestino mckeon Patient denies: systemic symptoms, vomiting, new cardiopulmonary symptoms, appetite changes, unintentional wt loss, dysphasia or recent/current melena/hematochezia. consumes: rice, penaloza, eggs, bread, pasta oranges, apples, grapes minimal vegetables water for hydration, also drinks juice ( alot') and soda (1 can/day). Treated for enteritis in 2021. Reports chronic urinary urgency, managed by PCP. She has been prescribed and taking weight loss medication X 1 year, currently on ozempic. Down to 240lb from 287lbs. Hx of MAGALIS, not using CPAP. Denies previous anesthesia difficulty Social hx: denies ETOH use denies recreational drug use current smoker, 10 cigarettes/day. 17.5 pack year history denies personal hx of CA Family hx: Father, active prostate CA 1333: Called pt after our visit via per diem interpreter Sree [id number]. Wanted to clarify her constipation symptoms. She reports feeling the urge to defecate but is unable to go at time of attempt. Otherwise as above. FORMERLY [facility], [facility] Medical History Obese Surgical History Hx of varicose vein ligation History of surgery on lower extremity Family History Father HTN (hypertension) Cancer Mother Diabetes Brother Diabetes Sister HTN (hypertension) Family/Other HTN (hypertension) Brother Cancer Social History Tobacco use type: Cigarette Cigarettes Per Day: 10 Current occupational status: disabled Physical Exam Vital Signs: Last Vital Signs Pulse 80 12/27/24 08:55 BP 128/76 12/27/24 08:55 Oxygen Delivery Method Room Air 12/27/24 08:55 BMI result Body Mass Index 39.9 Const General: healthy appearing, no acute distress and well developed Nutritional Appearance: well nourished Orientation/consciousness: patient oriented x3 HEENT Head: Yes normal to inspection, Yes normocephalic and Yes atraumatic Face and sinus: Yes normal facial exam Eyes General: appearance normal, both eyes and all related structures Neck Neck: Yes normal visual inspection Resp Effort & Inspection: normal respiratory effort, able to speak in complete sentences, no tracheal deviation and symmetric chest movement Auscultation: clear to auscultation bilaterally Cardio Jugular venous distension: no JVD Rate: regular rate Rhythm: regular rhythm Heart sounds: S1 normal heart sound present, S2 normal heart sound present, no gallops and no murmurs GI Inspection: Yes normal to inspection, No distended and Yes obesity Palpation (GI): Soft to palpation, not firm, nontender and No hepatosplenomegaly present Auscultation: normal bowel sounds Neuro General: patient oriented x3 Gait exam (Neuro): Normal gait present Psych Appearance: grossly normal Mental Status: mental status grossly normal Speech and movement: Normal speech and movement present Affect: normal affect Attitude: cooperative Thought process: Normal thought process present Thought content: Normal thought content present Insight: Good insight present (Psych) Judgement: Good judgement present (Psych) Results Reviewed Results Reviewed: CT Ab/pelvis 06/01/22 FINDINGS: LUNG BASES: Minimal dependent atelectasis. Tiny fat-containing posterior left Bochdalek diaphragmatic hernia incidentally noted. LIVER, GALLBLADDER, AND BILIARY TREE: Mild diffuse fatty infiltration liver but no focal hepatic lesion nor biliary ductal dilatation The gallbladder is unremarkable with no evidence of radiopaque gallstones, gallbladder wall thickening, or obvious pericholecystic inflammatory changes. PANCREAS: Unremarkable. SPLEEN: Unremarkable. ADRENAL GLANDS: Unremarkable. KIDNEYS AND URETERS: The kidneys are normal in size, shape, and attenuation. No hydronephrosis, hydroureter, or calculi seen. No perinephric stranding. BLADDER: Decompressed GASTROINTESTINAL TRACT: Few scattered colonic diverticula are incidentally noted. Main finding of note is a wall thickening to the terminal ileum and the adjacent distal ileum for approximately 20 cm. Perienteric inflammatory changes are present. No obstructive changes. ABDOMINAL WALL: No significant hernia is appreciated. LYMPHOVASCULAR STRUCTURES: No lymphadenopathy. The aorta is unremarkable. PELVIC VISCERA: Unremarkable. OSSEOUS STRUCTURES: Intramedullary lester seen in the left femur CT/CT abdomen pelvis w IV con IMPRESSION: Wall thickening and perienteric inflammatory change in the terminal ileum and extending to the adjacent distal ileum for approximately 20 cm of length. There is associated perienteric inflammatory change but no obstruction seen. Infectious or inflammatory causes would be strongly favored with this distribution and appearance. Assessment & Plan Assessment & Plan (1) Morbid exogenous obesity: Code(s): E66.01 - Morbid (severe) obesity due to excess calories Category: Medical Plan: BMI 39.9.Prescribed GLP-1 for weight loss management-managed by PCP. Reported weight reduction of approximately 44 lb. (2) Encounter for screening colonoscopy: Code(s): Z12.11 - Encounter for screening for malignant neoplasm of colon Category: Medical Plan: First screening colonoscopy. Reviewed prep and procedure expectations. Prep script to preferred pharmacy. (3) Epigastric abdominal pain: Code(s): R10.13 - Epigastric pain Category: Medical Plan: DDX include GERD VS IBD VS PUD VS celiac VS gallbladder involvement. CT abdomen and pelvis obtained in 2021 showed Wall thickening and perienteric inflammatory change in the terminal ileum and extending to the adjacent distal ileum for approximately 20cm of length. There is associated perienteric inflammatory change but no obstruction seen . Therefore, we will proceed with a repeat CT abdomen and pelvis, obtain barium swallow and get basic/screening labs. In the interim we will trial H2 berta for as needed use. Education on GERD prevention-Advised against heavy meals. Encouraged small frequent meals VS large meals, remaining upright after meals x 2-3 hours, avoid spicy foods/caffeine/alcohol and known triggers. 1333: discuss above plan with patient, she is agreeable. She will present for labs and understands she will get a call for scheduling of barim swallow and CT. (4) Constipation: Code(s): K59.00 - Constipation, unspecified Category: Medical Qualifiers: Constipation type: unspecified constipation type Qualified Code(s): K59.00 - Constipation, unspecified Plan: Plan as above to explore etiology. Lifestyle modifications reviewed. Plan Follow-up after results are sooner as needed. Time: I spent a total of 60 minutes on the date of encounter which includes: Preparing to see the patient (reviewed previous documentation, test results and medical history) Performing a medically appropriate exam and/or evaluation Ordering medications, tests, and procedures Documenting clinical information in the health record Orders: Orders Transglutaminase IgA Today R10.13 - Epigastric pain Calprotectin, Fecal Today K59.00 - Constipation, unspecified, R10.13 - Epigastric pain Complete Blood Count Auto Diff Today R10.13 - Epigastric pain Lipase Today R10.13 - Epigastric pain Vitamin E Today R10.13 - Epigastric pain Vitamin K1 Today R10.13 - Epigastric pain Immunoglobulins,IgG IgA IgM Today K59.00 - Constipation, unspecified, R10.13 - Epigastric pain FL barium swallow Today R10.13 - Epigastric pain Comprehensive Met. Panel Today R10.13 - Epigastric pain IRON PROFILE Today K59.00 - Constipation, unspecified, R10.13 - Epigastric pain Vitamin B12 and Folate Today R10.13 - Epigastric pain Vitamin D 1,25 dihydroxy Today R10.13 - Epigastric pain Vitamin A Today R10.13 - Epigastric pain CRP High Sensitivity Today K59.00 - Constipation, unspecified, R10.13 - Epigastric pain CT abdomen pelvis w IV con Today R10.13 - Epigastric pain Medications: New polyethylene glycol 3350 (Miralax) pre colonoscopy prep instructions 238 grams PO ONCE 238 grams 0RF famotidine Take one tablet as needed for acid reflux 20 mg PO DAILY PRN 90 tabs 0RF GERD bisacodyl 5 mg PO ONCE 4 tabs 0RF 0 days Coding Level of Care Code Established Pt Est Pt Level 4 (08263) Patient Type Established Diagnoses Morbid exogenous obesity E66.01 Encounter for screening colonoscopy Z12.11 Epigastric abdominal pain R10.13 Constipation, unspecified constipation type K59.00 Constipation type: unspecified constipation type
[2024-12-27 08:55] VITALS: BP 128/76; PULSE 80; BMI 39.9
== END 2024-12-27 16:24 | disposition home or self-care (01) ==
LOC: HO.HGI 08:34
PROVIDERS: PCP Nurse Practitioner Primary Care; Visit Provider Nurse Practitioner Family
DX: E66.01 Morbid (severe) obesity due to excess calories (principal); Z12.11 Encounter for screening for malignant neoplasm of colon; R10.13 Epigastric pain; K59.00 Constipation, unspecified
CPT/HCPCS: 99214

== ENCOUNTER → 2024-12-27 08:33 | Outpatient (BNVA) | payer MEDICAID, SELFPAY | PROVIDERS: PCP Nurse Practitioner Primary Care; Visit Provider Nurse Practitioner Family | DX: Z12.11 Encounter for screening for malignant neoplasm of colon (principal); E66.01 Morbid (severe) obesity due to excess calories; R10.13 Epigastric pain | CPT/HCPCS: 99212 ==

== ENCOUNTER 2024-12-28 11:34 | Outpatient (REF) | payer MEDICAID, SELFPAY ==
--- NOTE | ~2024-12-28 | MM_ITS ---
EXAMINATION: MM SCREENING DIGITAL BREAST TOMOSYNTHESIS, BILATERAL CLINICAL INFORMATION: Screening. Asymptomatic. COMPARISON: Mammography: Comparison is made with available priors TECHNIQUE: Digital breast mammography with tomosynthesis is performed in both the craniocaudal and mediolateral oblique views along with computer-aided detection (CAD). FINDINGS: There are scattered areas of fibroglandular density (ACR BI-RADS breast composition Category b). Bilateral scattered focal asymmetries are stable. There are no significant masses, abnormal calcifications, or other abnormalities. MM/MM tomosynthesis screening BI IMPRESSION: No mammographic evidence of malignancy. ASSESSMENT: BI-RADS BI-RADS 2 - Benign Findings RECOMMENDATION: Routine annual mammography screening. 1 year F/U This examination should not preclude the clinical evaluation of a suspicious palpable abnormality. This patient's information was entered into a reminder system with a target due date for their next mammogram. Electronically signed by: Charissa Queen DO 01/05/2025 02:56 PM EDT
[2024-12-28 12:06] LABS: MANUAL DIFF FLAG NO
[2024-12-28 12:13] LABS: Basophils Percent Auto 0.6 % (0-2); Eosinophils Absolute Auto 0.2 X10*3/uL (0.0-0.4); Eosinophils Percent Auto 2.6 % (0-4); Hematocrit 38.9 % (37.0-47.0); Hemoglobin 12.4 g/dl (12.0-16.0); Imm Gran Abs Auto 0.02 X10*3/uL (0.00-0.03); Imm Gran Pct Auto 0.3 % (0.0-0.4); Lymphocytes Absolute Auto 2.2 X10*3/uL (1.2-4.9); Lymphocytes Percent Auto 34.1 % (20-40); Mean Corpuscular HGB Conc 31.9 g/dl (31.0-35.0); Mean Corpuscular Hemoglobin 28.1 pg (27.0-33.0); Monocytes Absolute Auto 0.5 X10*3/uL (0.1-1.2); Monocytes Percent Auto 7.4 % (2-11); Neutrophils Absolute Auto 3.6 x10*3/uL (2.0-8.3); Platelet Count 239 X10*3/uL (160-400); Red Blood Count 4.42 X10*6/uL (4.20-5.50); Red Cell Distribution Width 14.1 % (11.0-16.0); White Blood Count 6.5 X10*3/uL (4.8-10.8)
[2024-12-28 12:46] LABS: Alanine Aminotransferase 11 U/L (0-31); Alkaline Phosphatase 80 U/L (39-117); Anion Gap 10 (12-20); Aspartate Amino Transferase 15 U/L (5-31); Bilirubin Total 0.7 mg/dL (0.0-1.0); Blood Urea Nitrogen 8 mg/dL (9-16); Calcium 9.3 mg/dL (8.4-10.2); Carbon Dioxide 30 mmol/L (22-29); Chloride 106 mmol/L (96-108); Estimated Glomerular Filt Rate > 60; Glucose Random 73 mg/dL (60-115); Iron 82 mcg/dL (30-160); Lipase 24 U/L (8-78); Percent Iron Saturation 31 % (15-50); Potassium 4.1 mmol/L (3.3-5.1); Sodium 142 mmol/L (135-145); Total Iron Binding Capacity 267 mcg/dL (228-428); Total Protein 6.8 g/dL (6.5-8.0); Unsaturated Iron Binding 185 ug/dL
[2024-12-28 13:24] LABS: Folate 9.5 ng/mL (> or = 4.0); Vitamin B12 208 pg/mL (200-900)
--- OUTSIDE RECORDS SUMMARY | 2024-12-28 14:08 | XMS_ITS | Encounter Summary ---
Author Organization [email or web address] Address [address] [facility] 7t [place] [address] Care Team Providers Care Test Engineering Technician Name Role Phone Olivia Pino Primary Care Provider Shaggy Huerta PharmD Unavailable [phone] Reason for Visit * Reason Comments Med Refill Encounter Details Date Type Department Care Team ([facility] st Contact Info) Description 11/30/2024 Refill [facility] MEDICINE [address] [place], [place] [phone] Olivia Pino ANP [address] [place], [place] [phone] Pain Social History Tobacco Use Types Packs/Day Years Used Date Smoking Tobacco: Every Day Cigarettes Passive Smoke Exposure: Current Smokeless Tobacco: Never Alcohol Use Standard Drinks/Week Comments Never 0 (1 standard drink = 0.6 oz pur e alcohol) Depression Answer Date Recorded Patient Health Questionnaire-9 Score 0 11/17/2024 Patient Health Questionnaire-9 Score 0 11/17/2024 Last PHQ-9: Questionnaire Data Not on file 0 11/17/2024 Housing Stability Answer Date Recorded What is your housing situation today? I have housing today, but I am worried about losing housing in the future 08/08/[address] you li ve. Do you have problems with any of the following? Pests such as bugs, ants, or mice 08/08/2024 Food Insecurity Answer Date Recorded Within the past 12 months, y ou worried that your food would run out before you got money to buy more: Sometimes True 2023 Within the past 12 months,th e food you bought just didn't last and you didn't have enough money to get more: Sometimes True 08/08/2024 Transportation Answer Date Recorded In the past 12 months, has l ack of transportation kept you from medical appts, meetings, work or from getting things needed for daily living? Yes, it has kept me from medical appointments or getting medications. 08/08/2024 Utilities Answer Date Recorded In the past 12 months, has t he [employer], [employer], oil or water [employer] threatened to shut off services in your home? Yes 08/08/2024 Depression Answer Date Recorded Patient Health Questionnaire-2 Score 0 11/17/2024 Internet Access Answer Date Recorded Internet Access Q1 Yes 08/08/2024 Internet Access Q2 Not on file 08/08/2024 Comments Unknown Sex and Gender Information Value Date Recorded Sex Assigned at Female 07/20/2022 10:19 AM EDT Legal Sex Female 10:19 AM EDT Gender Identity Female 07/20/2022 10:19 AM EDT Sexual Orientation Lesbian or Bhardwaj 07/20/2022 10 :19 AM EDT documented as of this encounter Plan of Treatment Upcoming Encounters Date Type Department Care Team (Late st Contact Info) Description 01/09/2025 1:30 PM EDT Telemedicine [address] [address] Shaggy Huerta, PharmD [address] [place] [address] 01/12/2025 11:30 AM EDT Clinical Support [address] [address] Digna Hicks, STEPHANIE [address] [place] [address] 02/15/2025 2:00 PM EDT Office Visit [address] [address] Olivia Pino, WILIAN [address] [place] [phone] documented as of this encounter Goals Goal Patient Goal Type Associated Problems Recent Progress Patient-Stated? Author Record your blood pressure once per day Blood Pressure No Yuridia Brown Blood Pressure < 140/90 Blood Pressure 150/101(12/12 11:49 AM EDT) No Yuridia Brown Quit using tobacco (cigarettes, smokeless, etc) Tobacco Use No Nancy Coats, Shena Note: - Obtain patches from pharmacy - Determine strategies to avoid triggers - Determine coping mechanisms for cravings - Identify support persons (family, friends) -Determine quit day documented as of this encounter Visit Diagnoses Diagnosis Pain Generalized pain documented in this encounter Additional Health Concerns Assessment Noted Time PHQ-9 Depression Total Score: 0 11/17/19 25 8:50 AM EST documented as of this encounter Care Teams Test Engineering Technician Relationship Specialty Start Date End Date Olivia Pino ANP [address] [place] [address] PCP - General Family Medicine 05/15/22 Shaggy Huerta, YuriD [address] [place] [phone] Pharmacist Internal Medicine 08/31/24 Mónica Magallon Laboratory AnalystPsychotherapist 04/26/24 documented as of this encounter
--- OUTSIDE RECORDS SUMMARY | 2024-12-28 14:08 | XMS_ITS | Encounter Summary ---
Author Organization [employer] Address [address] 7[address] [place] [address] Care Team Providers Care Water Inspector Name Role Phone Olivia Pino Primary Care Provider [phone] Shaggy Huerta PharmD Unavailable [phone] Reason for Visit * Reason Onset Date Comments PA 06/28/2024 Encounter Details Date Type Department Care Team ([facility] st Contact Info) Description 06/28/2024 Telephone [facility] MEDICINE [address] [place], [place] [phone] Olivia Pino ANP [address] [place], [place] [phone] PA Social History Tobacco Use Types Packs/Day Years Used Date Smoking Tobacco: Every Day Cigarettes Passive Smoke Exposure: Current Smokeless Tobacco: Never Alcohol Use Standard Drinks/Week Comments Never 0 (1 standard drink = 0.6 oz pur e alcohol) Depression Answer Date Recorded Patient Health Questionnaire-9 Score 20 05/02/2024 Patient Health Questionnaire-9 Score 20 05/02/2024 Last PHQ-9: Questionnaire Data Not on file 0 05/02/2024 Housing Stability Answer Date Recorded What is your housing situation today? I have neftaly wang 07/12/[address] you li ve. Do you have problems with any of the following? None of the above 07/12/2023 Food Insecurity Answer Date Recorded Within the past 12 months, y ou worried that your food would run out before you got money to buy more: Never True 07/12/2023 Within the past 12 months,th e food you bought just didn't last and you didn't have enough money to get more: Never True Transportation Answer Date Recorded In the past 12 months, has l ack of transportation kept you from medical appts, meetings, work or from getting things needed for daily living? No 07/12/2023 Utilities Answer Date Recorded In the past 12 months, has t he electric, gas, oil or water company threatened to shut off services in your home? No 07/12/2023 Depression Answer Date Recorded Patient Health Questionnaire-2 Score 4 05/02/2024 Comments Unknown Sex and Gender Information Value Date Recorded Sex Assigned at Female 07/20/2022 10:19 AM EDT Legal Sex Female 10:19 AM EDT Gender Identity Female 07/20/2022 10:19 AM EDT Sexual Orientation Lesbian or Bhardwaj 07/20/2022 10 :19 AM EDT documented as of this encounter Miscellaneous Notes * Telephone Encounter - Chata Batista - 06/28/2024 11:41 AM EDT Tc from pt calling to inform a PA is needed for medication Semaglutide-Weight Management (Wegovy) 1.7 MG/0.75ML solution auto-injector . documented in this encounter Plan of Treatment Upcoming Encounters Date Type Department Care Team (Late st Contact Info) Description 01/09/2025 1:30 PM EDT Telemedicine [facility] MEDICINE [address] [place] [phone] Shaggy Huerta, PharmD [address] [place] [phone] 01/12/2025 11:30 AM EDT Clinical Support [facility]ICINE [address] [place] [phone] Digna Hicks, RN [address] [place] [address] 02/15/2025 2:00 PM EDT Office Visit [facility] MED[facility]INE [address] [place] [address] Olivia Pino ANP [address] [place] [address] documented as of this encounter Goals Goal Patient Goal Type Associated Problems Recent Progress Patient-Stated? Author Record your blood pressure once per day Blood Pressure No Yuridia Brown Blood Pressure < 140/90 Blood Pressure 150/101(12/12 11:49 AM EDT) No Yuridia Brown Quit using tobacco (cigarettes, smokeless, etc) Tobacco Use No Nancy Coats PharmD Note: - Obtain patches from pharmacy - Determine strategies to avoid triggers - Determine coping mechanisms for cravings - Identify support persons (family, friends) -Determine quit day documented as of this encounter Visit Diagnoses Not on filedocumented in this encounter Additional Health Concerns Assessment Noted Time PHQ-9 Depression Total Score: 20 024 10:44 AM EDT documented as of this encounter Care Teams Water Inspector Relationship Specialty Start Date End Date Olivia Pino ANP [address] [place] [phone] PCP - General Family Medicine 05/15/22 Shaggy Huerta, Shena [address] [place] [phone] Pharmacist Internal Medicine 08/31/24 óMnica Maglalon Concrete BatcherDental Assisting Instructor 04/26/24 documented as of this encounter
--- OUTSIDE RECORDS SUMMARY | 2024-12-28 14:08 | XMS_ITS | Encounter Summary ---
Author Organization [employer] Address [address] [facility] [address]t [place] [address] Care Team Providers Care Real Estate Internship Name Role Phone Olivia Pino Primary Care Provider [phone] Shaggy Huerta PharmD Unavailable [phone] Encounter Details Date Type Department Care Team (Latest Contact Info) Description 07/31/2021 Abstract [facility] CONVERSIONS Dental, Provider, DDS Social History Tobacco Use Types Packs/Day Years Used Date Smoking Tobacco: Never Assessed Comments Unknown Sex and Gender Information Value [...] Info) Description 01/09/2025 1:30 PM EDT Telemedicine [facility] MEDICINE [address] [place] [phone] Shaggy Huerta, PharmD [address] [place] [address] 01/12/2025 11:30 AM EDT Clinical Support [facility] MEDICINE [address] [place] [address] Digna Hicks RN [address] [place] [address] 02/15/2025 2:00 PM EDT Office Visit [facility] MEDICINE [address] [place] [address] Olivia Pino ANP [address] [place] [address] documented as of this encounter Visit Diagnoses Not on filedocumented in this encounter Care Teams Real Estate Internship Relationship Specialty Start Date End Date Olivia Pino ANP [address] [place] [phone] PCP - General Family Medicine 05/15/22 Shaggy Huerta, Shena [address] [place] [address] [phone] Pharmacist Internal Medicine 08/31/24 Mónica Magallon Linoleum Tile LayerDelinquency Prevention Officer 04/26/24 documented as of this encounter
--- OUTSIDE RECORDS SUMMARY | 2024-12-28 14:08 | XMS_ITS | Encounter Summary ---
Author Organization [employer] Address [address] [facility] [address] [place] [address] Care Team Providers Care Director Emergency Services Name Role Phone Olivia Pino Primary Care Provider [phone] Shaggy Huerta PharmD Unavailable [phone] Reason for Visit * Reason Onset Date Comments Med Refill 07/10/2024 Encounter Details Date Type Department Care Team (Late st Contact Info) Description 07/10/2024 Refill [facility] MEDICINE [address] [place], [place] [phone] Olivia Pino ANP [address] [place], [place] [phone] Class 3 severe obesity with serious comorbidity and body mass index (BMI) of 45.0 to 49.9 in adult, unspecified obesity type (CMS/HCC) Social History Tobacco Use Types Packs/Day Years [...] Info) Description 01/09/2025 1:30 PM EDT Telemedicine [facility] MEDICINE [address] [place] [address] Shaggy Huerta, PharmD [address] [place] [phone] 01/12/2025 11:30 AM EDT Clinical Support [address] [address] Digna Hicks, STEPHANIE [address] [place] [address] 02/15/2025 2:00 PM EDT Office Visit [facility] MEDICINE [address] [place] [phone] Olivia Pino, WILIAN [address] [place] [phone] documented as of this encounter Goals Goal [...] as of this encounter Visit Diagnoses Diagnosis Class 3 severe obesity with serious comorbidity and body mass index (BMI) of 45.0 to 49.9 in adult, unspecified obesity type (CMS/HCC) documented in this encounter Additional Health Concerns Assessment Noted Time PHQ-9 Depression Total Score: 20 024 10:44 AM EDT documented as of this encounter Care Teams Director Emergency Services Relationship Specialty Start Date End Date Olivia Pino ANP [address] [place] [address] PCP - General Family Medicine 05/15/22 Shaggy Huerta, Shena [address] [place] [address] Pharmacist Internal Medicine 08/31/24 Mónica Magallon Early Childhood Associate TeacherCan Intake Worker 04/26/24 documented as of this encounter
--- OUTSIDE RECORDS SUMMARY | 2024-12-28 14:08 | XMS_ITS | Encounter Summary ---
Author Organization [email or web address] Address [address] [facility] [address] [place] [address] Care Team Providers Care Senior Director Finance Name Role Phone Olivia Pino Primary Care Provider [phone] Shaggy Huerta PharmD Unavailable Reason for Visit * Reason Onset Date Comments Appointment Request 12/01/2024 Encounter Details Date Type Department Care Team ([facility] Contact Info) Description 12/01/2024 Telephone [facility] MEDICINE [address] [place], [place] [phone] Olivia Pino ANP [address] [place], [place] [phone] Appointment Request Social History Tobacco Use Types Packs/Day Years [...] the past 12 months, has t he [employer], gas, oil or water company threatened to [...] encounter Miscellaneous Notes * Telephone Encounter - Ray Bloom - 12/01/2024 1:56 PM EDT Tc from pt requesting to R/s Apt from 11/24/24. Contact pt at [phone] documented in this encounter Plan of Treatment Upcoming Encounters Date Type Department Care Team (Late st Contact Info) Description 01/09/2025 1:30 PM EDT Telemedicine [facility] MEDICINE [address] [place] [address] Shaggy Huerta, YuriD [address] [place] [address] 01/12/2025 11:30 AM EDT Clinical Support [facility] MEDICINE [address] [place] [address] Digna Hicks, RN [address] [place] [address] 02/15/2025 2:00 PM EDT Office Visit [facility] MEDICINE [address] [place] [address] Olviia Pino ANP [address] [place] [address] documented as of this encounter Goals Goal [...] documented as of this encounter Care Teams Senior Director Finance Relationship Specialty Start Date End Date Olivia Pino ANP [address] [place] [address] PCP - General Family Medicine 05/15/22 Shaggy Huerta, YuriD [address] [place] [address] Pharmacist Internal Medicine 08/31/24 Mónica Magallon Project Development EngineerBody Work Auto Trimmer 04/26/24 documented as of this encounter
--- OUTSIDE RECORDS SUMMARY | 2024-12-28 14:09 | XMS_ITS | Encounter Summary ---
Author Organization [employer] Address [address] [facility] [address] 7t [place] [address] Care Team Providers Care Disability Specialist Name Role Phone Olivia Pino Primary Care Provider [phone] Shaggy Huerta PharmD Unavailable [phone] Reason for Visit * Reason Onset Date Comments Transportation 05/19/2024 Encounter Details Date Type Department Care Team ([facility] Contact Info) Description 05/19/2024 Telephone [facility] [address] [place], [place] [phone] Olivia Pino ANP [address] [place], [place] [phone] Transportation Social History Tobacco Use Types Packs/Day Years [...] encounter Miscellaneous Notes * Telephone Encounter - Ridge Stein - 05/19/2024 8:46 AM EDT Tc from pt requesting transportation for appt on 05/23/24, pt was advised to call three days ahead. documented in this encounter Plan of Treatment Upcoming Encounters Date Type Department Care Team (Late st Contact Info) Description 01/09/2025 1:30 PM EDT Telemedicine [facility] [address] [place] [address] Shaggy Huerta, PharmD [address] [place] [address] 01/12/2025 11:30 AM EDT Clinical Support [facility] [address] [place] [address] Digna Hicks, RN 505 [place] [address] 02/15/2025 2:00 PM EDT Office Visit [facility] [address] [place] [address] Olivia Pino, ANP 230 [place] [address] documented as of this encounter Goals Goal [...] documented as of this encounter Care Teams Disability Specialist Relationship Specialty Start Date End Date Olivia Pino ANP [address] [place] [address] PCP - General Family Medicine 05/15/22 Shaggy Huerta, Shena [address] [place] [address] Pharmacist Internal Medicine 08/31/24 Mónica Magallon Precinct Police CaptainWood Fuel Pelletizer 04/26/24 documented as of this encounter
--- OUTSIDE RECORDS SUMMARY | 2024-12-28 14:09 | XMS_ITS | Encounter Summary ---
Author Organization [employer] Address [address] [facility] 7t [place] [address] Care Team Providers Care Bottler Helper Name Role Phone Olivia Pino Primary Care Provider [phone] Shaggy Huerta PharmD Unavailable [phone] Reason for Visit * Reason Comments Med Refill Encounter Details Date Type Department Care Team ([facility] Contact Info) Description 03/26/2023 Refill [facility] [address] [place] [address] [phone] Olivia Pino ANP 230 [place], [place] [phone] Pain Social History Tobacco Use Types Packs/Day Years Used Date Smoking Tobacco: Every Day Cigarettes Passive Smoke Exposure: Current Smokeless Tobacco: Never Alcohol Use Standard Drinks/Week Comments Not Currently 0 (1 standard drink = 0.6 oz pur e alcohol) Depression Answer Date Recorded Patient Health Questionnaire-9 Score 6 10/16/2022 Depression Answer Date Recorded Patient Health Questionnaire-2 Score 2 10/16/2022 Comments Unknown Sex and Gender Information Value Date Recorded Sex Assigned at Female 07/20/2022 10:19 AM EDT Legal Sex Female 10:19 AM EDT Gender Identity Female 07/20/2022 10:19 AM EDT Sexual Orientation Lesbian or Bhardwaj 07/20/2022 10 :19 AM EDT documented as of this encounter Plan of Treatment Upcoming Encounters Date Type Department Care Team ([facility] Contact Info) Description 01/09/2025 1:30 PM EDT Telemedicine [address] [address] Shaggy Huerta, PharmD 230 [place], [place] 01/12/2025 11:30 AM EDT Clinical Support [address] [address] Digna Hicks, RN 505 [place] [address] 02/15/2025 2:00 PM EDT Office Visit [address] [address] Olivia Pino ANP [address] [place] [address] documented as of this encounter Goals Goal Patient Goal Type Associated Problems Recent Progress Patient-Stated? Author Quit using tobacco (cigarettes, smokeless, etc) Tobacco Use No Nancy Coats, YuriD Note: - Obtain patches from pharmacy - Determine strategies to avoid triggers - Determine coping mechanisms for cravings - Identify support persons (family, friends) -Determine quit day documented as of this encounter Visit Diagnoses Diagnosis Pain Generalized pain documented in this encounter Additional Health Concerns Assessment Noted Time PHQ-9 Depression Total Score: 6 10/16/19 23 1:30 PM EST documented as of this encounter Care Teams Bottler Helper Relationship Specialty Start Date End Date Olivia Pino ANP [address] [place] [address] PCP - General Family Medicine 05/15/22 Shaggy Huerta, PharmD [address] [place] [address] Pharmacist Internal Medicine 08/31/24 Mónica Magallon Painter ForemanBaccarat Manager 04/26/24 documented as of this encounter
--- OUTSIDE RECORDS SUMMARY | 2024-12-28 14:09 | XMS_ITS | Encounter Summary ---
Author Organization [employer] Address [address] [facility] [address] 7t [place] [address] Care Team Providers Care District Adviser Name Role Phone Olivia Pino Primary Care Provider [phone] Shaggy Huerta PharmD Unavailable [phone] Reason for Visit * Reason Comments Med Refill Encounter Details Date Type Department Care Team ([facility] st Contact Info) Description 04/28/2024 Refill [facility] 230 [place], [place] [phone] Olivia Pino ANP 230 [place], [place] [phone] Class 3 severe obesity with serious comorbidity [...] the past 12 months, has t he [employer], gas, oil or water company threatened to [...] Info) Description 01/09/2025 1:30 PM EDT Telemedicine [facility] [address] [place] [address] Shaggy Huerta, YuriD [address] [place] [address] 01/12/2025 11:30 AM EDT Clinical Support [address] [address] Digna Hicks, STEPHANIE 505 [place] [address] 02/15/2025 2:00 PM EDT Office Visit [facility] [address] [place] [address] Olivia Pino ANP [address] [place] [address] documented as of this encounter Goals Goal Patient Goal Type Associated Problems Recent Progress Patient-Stated? Author Record your blood pressure once per day Blood Pressure No Cardaropoli, Shi Blood Pressure < 140/90 Blood Pressure 150/101(12/12 11:49 AM EDT) No Yuridai Brown Quit using tobacco (cigarettes, smokeless, etc) [...] documented as of this encounter Care Teams District Adviser Relationship Specialty Start Date End Date Olivia Pino ANP 230 [place] [address] PCP - General Family Medicine 05/15/22 Shaggy Huerta, YuriD 230 [place] [address] Pharmacist Internal Medicine 08/31/24 Mónica Magallon Commutator OperatorGeek Squad Autotech 04/26/24 documented as of this encounter
--- OUTSIDE RECORDS SUMMARY | 2024-12-28 14:09 | XMS_ITS | Encounter Summary ---
Author Organization [employer] Address [address] [facility] [address] 7t [place] [address] Care Team Providers Care Legal Secretary Name Role Phone Olivia Pino Primary Care Provider [phone] Shaggy Huerta PharmD Unavailable [phone] Reason for Visit * Reason Onset Date Comments Nurse Triage 12/08/2023 Encounter Details Date Type Department Care Team ([facility] st Contact Info) Description 12/08/2023 Telephone [facility] 230 [place], [place] [phone] Olivia Pino ANP 230 [place], [place] [phone] Nurse Triage Social History Tobacco Use Types Packs/Day Years Used Date Smoking Tobacco: Every Day Cigarettes Passive Smoke Exposure: Current Smokeless Tobacco: Never Alcohol Use Standard Drinks/Week Comments Never 0 (1 standard drink = 0.6 oz pur e alcohol) Depression Answer Date Recorded Patient Health Questionnaire-9 Score 6 10/16/2022 Housing Stability Answer Date Recorded What is your housing situation today? I have netfaly wang 07/12/[address] you [...] encounter Miscellaneous Notes * Telephone Encounter - Loretta Gordillo - 12/08/2023 10:46 AM EDT Symptom: Headache Outcome: Schedule a same-day appointment or talk to a nurse or provider today Reason: Due to head injury The caller accepted this outcome Czech speaker documented in this encounter Plan of Treatment Upcoming Encounters Date Type Department Care Team (Late st Contact Info) Description 01/09/2025 1:30 PM EDT Telemedicine [address] [address] Shaggy Huerta, PharmD [address] [place] [address] 01/12/2025 11:30 AM EDT Clinical Support [facility] [address] [place] [address] Digna Hicks RN 505 [place] [address] 02/15/2025 2:00 PM EDT Office Visit [address] [address] Olivia Pino ANP [address] [place] [address] documented as of this encounter Goals Goal [...] documented as of this encounter Care Teams Legal Secretary Relationship Specialty Start Date End Date Olivia Pino ANP 230 [place] [address] PCP - General Family Medicine 05/15/22 Shaggy Huerta, Shena 230 [place] [address] Pharmacist Internal Medicine 08/31/24 Mónica Magallon Qa EngineerShoe Stitcher Odd 04/26/24 documented as of this encounter
--- OUTSIDE RECORDS SUMMARY | 2024-12-28 14:09 | XMS_ITS | Encounter Summary ---
Author Organization [employer] Address [address] [facility] 7t [place] [address] Care Team Providers Care Academic Physician Name Role Phone Olivia Pino Primary Care Provider [phone] Shaggy Huerta PharmD Unavailable [phone] Reason for Visit * Reason Comments Med Refill Encounter Details Date Type Department Care Team ([facility] Contact Info) Description 06/17/2023 Refill [facility] [address] [place] [address] [phone] Olivia Pino ANP 230 [place], [place] [phone] Pain Social History Tobacco Use Types Packs/Day [...] Upcoming Encounters Date Type Department Care Team ([facility] Contact Info) Description 01/09/2025 1:30 PM EDT Telemedicine [address] [address] Shaggy Heurta, PharmD 230 [place], [place] 01/12/2025 11:30 AM EDT Clinical Support [address] [address] Digna Hicks, RN 505 [place] [address] 02/15/2025 2:00 PM EDT Office Visit [address] [address] Olivia Pino ANP [address] [place] [address] documented as of this encounter Goals Goal [...] documented as of this encounter Care Teams Academic Physician Relationship Specialty Start Date End Date Olivia Pino ANP [address] [place] [address] PCP - General Family Medicine 05/15/22 Shaggy Huerta, PharmD [address] [place] [address] Pharmacist Internal Medicine 08/31/24 Mónica Magallon Group Sales RepresentativeStraightedge Man 04/26/24 documented as of this encounter
--- OUTSIDE RECORDS SUMMARY | 2024-12-28 14:09 | XMS_ITS | Encounter Summary ---
Author Organization [employer] Address [address] [facility] 7t [place] [address] Care Team Providers Care Pool Attendant Name Role Phone Olivia Pino Primary Care Provider [phone] Shaggy Huerta PharmD Unavailable [phone] Reason for Visit * Reason Comments Med Refill Encounter Details Date Type Department Care Team ([facility] st Contact Info) Description 12/06/2024 Refill [facility] 230 [place], [place] [phone] Olivia Pino ANP 230 [place], [place] [phone] Class 3 severe obesity with serious comorbidity and body mass index (BMI) of 40.0 to 44.9 in adult, unspecified obesity type (CMS/HCC) Social [...] Info) Description 01/09/2025 1:30 PM EDT Telemedicine [address] [address] Shaggy Huerta, PharmD [address] [place] [address] 01/12/2025 11:30 AM EDT Clinical Support [address] [address] Digna Hicks RN 505 [place] [address] 02/15/2025 2:00 PM EDT Office Visit [address] [address] Olivia Pino, ANP [address] [place] [address] documented as of this encounter Goals Goal [...] comorbidity and body mass index (BMI) of 40.0 to 44.9 in adult, unspecified obesity type (CMS/HCC) documented in this encounter Additional Health Concerns Assessment Noted Time PHQ-9 Depression Total Score: 0 11/17/19 25 8:50 AM EST documented as of this encounter Care Teams Pool Attendant Relationship Specialty Start Date End Date Olivia Pino ANP 230 [place] [address] PCP - General Family Medicine 05/15/22 Shaggy Heurta, YuriD 230 [place] [address] Pharmacist Internal Medicine 08/31/24 Mónica Magallon ChipperFlame Gouger 04/26/24 documented as of this encounter
--- OUTSIDE RECORDS SUMMARY | 2024-12-28 14:09 | XMS_ITS | Encounter Summary ---
Author Organization [employer] Address [address] [facility] [address] 7t [place] [address] Care Team Providers Care Surface Ship Usw Supervisor Name Role Phone Olivia Pino WILIAN Primary Care Provider [phone] Shaggy Huerta PharmD Unavailable [phone] Encounter Details Date Type Department Care Team ([facility] Contact Info) Description 12/28/2024 Orders Only GENERIC EXTERNAL DATA DEPARTMENT Provider, Generic External Data Social History Tobacco Use Types Packs/Day Years [...] Info) Description 01/09/2025 1:30 PM EDT Telemedicine [address] [address] Shaggy Huerta, PharmD [address] [place] [address] 01/12/2025 11:30 AM EDT Clinical Support [address] [address] Digna Hicks, RN 505 [place] [address] 02/15/2025 2:00 PM EDT Office Visit [address] [address] Olivia Pino ANP [address] [place] [address] documented as of this encounter Goals Goal Patient Goal Type Associated Problems Recent Progress Patient-Stated? Author Record your blood pressure once per day Blood Pressure No Yuridia Brown Blood Pressure < 140/90 Blood Pressure 150/101(12/12 11:49 AM EDT) No Cardaropoli, Shi Quit using tobacco (cigarettes, smokeless, etc) Tobacco Use No Nancy Coats, Shena Note: - Obtain patches from pharmacy - Determine strategies to avoid triggers - Determine coping mechanisms for cravings - Identify support persons (family, friends) -Determine quit day documented as of this encounter Procedures Procedure Name Priority Date/Time Associated Diagnosis Comments VITAMIN B12/FOLATE, SERUM PANEL Routine 12/28/2024 12:04 PM EDT CBC WITH AUTO DIFFERENTIAL Routine 12/28/2024 12:04 PM EDT IRON AND TOTAL IRON BINDING CAPACITY Routine 12/28/2024 12:04 PM EDT LIPASE Routine 12/28/2024 12:04 PM EDT COMPREHENSIVE METABOLIC PANEL Routine 12/28/2024 12:04 PM EDT documented in this encounter Results * Vitamin B12 (Cobalamin) and Folate Panel, Serum (12/28/2024 12:04 PM EDT) Vitamin B12 208 200 - 900 pg/mL [facility] Comment:NORMAL 200-900 PG/ML INDETERMINATE 160-199 PG/ML DEFICIENT < 160 PG/ML Folate 9.5 > or = 4.0 ng/mL [facility] Comment:Reference Values:> o r = 4.0 ng/mL< 4.0 ng/mL suggests folate deficiency Methotrexate, aminopterin and folinic acid(leucovorin) are chemotherapeutic agents whose molecularstructures are similar to folate; therefore, the Architectfolate assay cannot be used for patients using these drugs. 12/28/2024 12:0 4 PM EDT 12/28/2024 12:04 PM EDT us Generic External Data Provider LAB BLOOD ORDERAB LES Final Result [facility] [address] [place] [phone] * Lipase (12/28/2024 12:04 PM EDT) Pathologist [facility] Lipase 24 8 - 78 U/L [facility] 12/28/2024 12:0 4 PM EDT 12/28/2024 12:04 PM EDT us Generic External Data Provider LAB BLOOD ORDERAB LES Final Result Performing Organization Address [facility]/ZIP Co de Phone Number [facility] [address] [place] [phone] * Iron And Total Iron Binding Capacity (12/28/2024 12:04 PM EDT) [facility] Iron 82 30 - 160 mcg/dL [facility] Total Iron Binding Capacity 267 228 - 428 mcg/dL [facility] Percent Iron Saturation 31 15 - 50 % [facility] Unsaturated Iron Binding 185 ug/dL [facility] 12/28/2024 12:0 4 PM EDT 12/28/2024 12:04 PM EDT Generic External Data Provider LAB BLOOD ORDERAB LES Final Result Performing Organization Address [facility] de Phone Number [facility] [address] [place] [phone] * (ABNORMAL) Comprehensive Metabolic Panel (12/28/2024 12:04 PM EDT) Pathologist [facility] Sodium 142 135 - 145 mmol/L [facility] Potassium 4.1 3.3 - 5.1 mmol/L [facility] Chloride 106 96 - 108 mmol/L [facility] Carbon Dioxide 30(H) 22 - 29 mmol/L [facility] Anion Gap 10(L) 12 - 20 [facility] Urea Nitrogen (BUN) 8(L) 9 - 16 mg/dL [facility] Creatinine, Serum 0.67 0.5 - 1.4 mg/dL [facility] Estimated Glomerular Filt Rate >60 [facility] Comment:Chronic Kidney Disea se: Estimated GFR < 60 mL/min/[id number] Kidney Disease: Estimated GFR < 15 mL/min/1.73m2 Glucose 73 60 - 115 mg/dL [facility] Calcium 9.3 8.4 - 10.2 mg/dL [facility] Bilirubin, Total 0.7 0.0 - 1.0 mg/dL [facility] Aspartate Amino Transferase 15 5 - 31 U/L [facility] Alanine Aminotransferase 11 0 - 31 U/L [facility] Total Protein 6.8 6.5 - 8.0 g/dL [facility] Albumin Level 4.0 3.5 - 5.0 g/dL [facility] Alkaline Phosphatase 80 39 - 117 U/L [facility] 12/28/2024 12:0 4 PM EDT 12/28/2024 12:04 PM EDT us Generic External Data Provider LAB BLOOD ORDERAB LES Final Result [facility] [address] [place] [phone] [phone] * CBC auto differential (12/28/2024 12:04 PM EDT) White Blood Count 6.5 4.8 - 10.8 X10*3/uL [facility] Red Blood Count 4.42 4.20 - 5.50 X10*6/uL [facility] Hemoglobin 12.4 12.0 - 16.0 g/dl [facility] Hematocrit 38.9 37.0 - 47.0 % [facility] Mean Corpuscular Volume 88.0 80.0 - 98.0 fL [facility] Mean Corpuscular Hemoglobin 28.1 27.0 - 33.0 pg [facility] Mean Corpuscular HGB Conc 31.9 31.0 - 35.0 g/dl [facility] Red Cell Distribution Width 14.1 11.0 - 16.0 % [facility] Platelet Count 239 160 - 400 X10*3/uL [facility] Mean Platelet Volume 10.0 9.4 - 12.3 fL [facility] Neutrophils Percent Auto 55.0 45 - 73 % [facility] Imm Gran Pct Auto 0.3 0.0 - 0.4 % [facility] Lymphocytes Percent Auto 34.1 20 - 40 % [facility] Monocytes Percent Auto 7.4 2 - 11 % [facility] Eosinophils Percent Auto 2.6 0 - 4 % [facility] Basophils Percent Auto 0.6 0 - 2 % [facility] NRBC Pct Auto 0.0 0.0 - 0.2 /100WBC [facility] Neutrophils Absolute Auto 3.6 2.0 - 8.3 x10*3/uL [facility] Imm Gran Abs Auto 0.02 0.00 - 0.03 X10*3/uL [facility] Lymphocytes Absolute Auto 2.2 1.2 - 4.9 X10*3/uL [facility] Monocytes Absolute Auto 0.5 0.1 - 1.2 X10*3/uL [facility] Eosinophils Absolute Auto 0.2 0.0 - 0.4 X10*3/uL [facility] Basophils Absolute Auto 0.0 0.0 - 0.2 X10*3/uL [facility] NRBC Abs Auto 0.000 0.0 - 0.012 X10*3/uL [facility] 12/28/2024 12:0 4 PM EDT 12/28/2024 12:04 PM EDT us Generic External Data Provider LAB BLOOD ORDERAB LES Final Result [facility] [address] [place] [phone] [phone] documented in this encounter Visit Diagnoses Not on filedocumented in this encounter Additional Health Concerns Assessment Noted Time PHQ-9 Depression Total Score: 0 11/17/19 25 8:50 AM EST documented as of this encounter Care Teams Surface Ship Usw Supervisor Relationship Specialty Start Date End Date Olivia Pino ANP 230 [place] [address] PCP - General Family Medicine 05/15/22 Shaggy Huerta, YuriD 230 [place] [address] Pharmacist Internal Medicine 08/31/24 Mónica Magallon Valve GrinderCampground Cleaning Attendant 04/26/24 documented as of this encounter
--- OUTSIDE RECORDS SUMMARY | 2024-12-28 14:09 | XMS_ITS | Encounter Summary ---
Author Organization [employer] Address 75 [facility] 7t [place] [address] Care Team Providers Care Analyst Competitive Intelligence Name Role Phone Olivia Pino Primary Care Provider [phone] Shaggy Huerta PharmD Unavailable [phone] Reason for Visit * Reason Comments Med Refill Encounter Details Date Type Department Care Team ([facility] st Contact Info) Description 04/26/2024 Refill [facility] 230 [place], [place] [phone] Olivia Pino ANP 230 [place], [place] [phone] Class 3 severe obesity with serious comorbidity [...] Info) Description 01/09/2025 1:30 PM EDT Telemedicine [facility] [address] [place] [address] Shaggy Huerta, PharmD [address] [place] [address] 01/12/2025 11:30 AM EDT Clinical Support [address] [address] Digna Hicks, STEPHANIE 505 [place] [address] 02/15/2025 2:00 PM EDT Office Visit [facility] [address] [place] [address] Olivia Pino, ANP [address] [place] [address] documented as of this encounter Goals Goal Patient Goal Type Associated Problems Recent Progress Patient-Stated? Author Record your blood pressure once per day Blood Pressure Yuridia Kwan Blood Pressure < 140/90 Blood Pressure 150/101(12/12 11:49 AM EDT) Yuridia Kwan Quit using tobacco (cigarettes, smokeless, etc) Tobacco [...] documented as of this encounter Care Teams Analyst Competitive Intelligence Relationship Specialty Start Date End Date Olivia Pino ANP [address] [place] [address] PCP - General Family Medicine 05/15/22 Shaggy Huerta, Shena [address] [place] [address] Pharmacist Internal Medicine 08/31/24 Mónica Magallon Director It ProjectSocial Media Content Specialist 04/26/24 documented as of this encounter
--- OUTSIDE RECORDS SUMMARY | 2024-12-28 14:09 | XMS_ITS | Encounter Summary ---
Author Organization [employer] Address 75 [facility] 7 [place] [address] Care Team Providers Care Kiss Setter Hand Name Role Phone Olviia Pino WILIAN Primary Care Provider [phone] Shaggy Huerta PharmD Unavailable [phone] Reason for Visit * Reason Comments Med Refill Encounter Details Date Type Department Care Team ([facility] st Contact Info) Description 02/28/2024 Refill [facility] 230 [place], [place] [phone] Rosalia Reich MD 230 [place], [place] [phone] Pain Social History Tobacco Use Types Packs/Day Years Used Date Smoking Tobacco: Every Day Cigarettes Passive Smoke Exposure: Current Smokeless Tobacco: Never Alcohol Use Standard Drinks/Week Comments Never 0 (1 standard drink = 0.6 oz pur e alcohol) Depression Answer Date Recorded Patient Health Questionnaire-9 Score 6 10/16/2022 Housing Stability Answer Date Recorded What is your housing situation today? I have neftalythom wang 07/12/[address] you [...] Description 01/09/2025 1:30 PM EDT Telemedicine [address] [address] Shaggy Huerta, YuriD [address] [place] [address] 01/12/2025 11:30 AM EDT Clinical Support [address] [address] Digna Hicks, RN 505 [place] [address] 02/15/2025 2:00 PM EDT Office Visit [facility] [address] [place] [address] Olivia Pino ANP [address] [place] [address] documented as of this encounter Goals Goal [...] documented as of this encounter Care Teams Kiss Setter Hand Relationship Specialty Start Date End Date Olivia Pino ANP 230 [place] [address] PCP - General Family Medicine 05/15/22 Shaggy Huerta PharmD 230 [place] [address] Pharmacist Internal Medicine 08/31/24 Mónica Magallon Gate TechnicianCatechist 04/26/24 documented as of this encounter
--- OUTSIDE RECORDS SUMMARY | 2024-12-28 14:09 | XMS_ITS | Encounter Summary ---
Author Organization [employer] Address [address] [facility] [address] [place] [address] Care Team Providers Care Scleroscope Tester Name Role Phone Olivia Pino Primary Care Provider [phone] Shaggy Huerta PharmD Unavailable [phone] Reason for Visit * Reason Comments Med Refill Encounter Details Date Type Department Care Team ([facility] Contact Info) Description 06/21/2023 Refill [facility] MEDICINE [address] [place] [address] [phone] Olivia Pino ANP [address] [place], [place] [phone] Pain Social History Tobacco Use Types Packs/Day [...] Upcoming Encounters Date Type Department Care Team ([facility] Contact Info) Description 01/09/2025 1:30 PM EDT Telemedicine [address] [address] Shaggy Huerta, PharmD [address] [place], [place] 01/12/2025 11:30 AM EDT Clinical Support [address] [address] Digna Hicks, RN [address] [place] [address] 02/15/2025 2:00 PM EDT Office Visit [address] [address] Olivia Pino ANP [address] [place] [address] documented as of this encounter Goals Goal [...] documented as of this encounter Care Teams Scleroscope Tester Relationship Specialty Start Date End Date Olivia Pino ANP [address] [place] [id number] PCP - General Family Medicine 05/15/22 Shaggy Huerta, PharmD [address] [place] [phone] Pharmacist Internal Medicine 08/31/24 Mónica Magallon Trimmer And ReinforcerClient Onboarding Analyst 04/26/24 documented as of this encounter
--- OUTSIDE RECORDS SUMMARY | 2024-12-28 14:09 | XMS_ITS | Encounter Summary ---
Author Organization [employer] Address [address] [facility] [address] [place] [address] Care Team Providers Care Chemical Tank Worker Name Role Phone Olivia Pino WILIAN Primary Care Provider [phone] Shaggy Huerta PharmD Unavailable [phone] Reason for Visit * Reason Comments Med Refill Encounter Details Date Type Department Care Team ([facility] st Contact Info) Description 12/06/2023 Refill [facility] MED[facility]INE [address] [place], [place] [phone] Ashley Ramirez MD [address] [place], [place] [phone] Pain Social History Tobacco Use Types Packs/Day [...] Info) Description 01/09/2025 1:30 PM EDT Telemedicine [address] [address] Shaggy Huerta, YuriD [address] [place] [id number] 01/12/2025 11:30 AM EDT Clinical Support [address] [address] Digna Hicks, RN [address] [place] [address] 02/15/2025 2:00 PM EDT Office Visit [address] [address] Olivia Pino ANP [address] [place] [phone] documented as of this encounter Goals Goal [...] documented as of this encounter Care Teams Chemical Tank Worker Relationship Specialty Start Date End Date Olivia Pino ANP [address] [place] [address] PCP - General Family Medicine 05/15/22 Shaggy Huerta PharmD [address] [place] [address] Pharmacist Internal Medicine 08/31/24 Mónica Magallon Shoes Hand SewerExtension Service Specialist In Charge 04/26/24 documented as of this encounter
--- OUTSIDE RECORDS SUMMARY | 2024-12-28 14:09 | XMS_ITS | Clinical Summary ---
Author Organization [employer] Address [address] [place] [address] Care Team Providers Care Baking Assistant Name Role Phone Olivia Pino WILIAN Primary Care Provider [phone] Shaggy Huerta PharmD Unavailable [phone] Allergies No known active allergies Medications Adderall XR 30 MG 24 hr capsule TAKE 1 CAPSULE BY MOUTH EVERY MORNING 09/02/20 22 Active clonazePAM (KlonoPIN) 1 MG tablet TAKE 1/2 TO 1 TABLET BY MOUTH TWICE DAILY NEEDED FOR ANXIETY 08/25/20 22 Active hydrOXYzine pamoate (Vistaril) 100 MG capsule TAKE 1 CAPSULE BY MOUTH TWICE DAILY NEEDED FOR ANXIETY 08/25/20 22 Active mirtazapine (Remeron) 30 MG tablet TAKE 1 TABLET BY MOUTH AT BEDTIME for SLEEP AND MOOD 08/25/20 22 Active naloxone (Narcan) 4 mg/0.1 mL nasal spray spray 0.1 milliliter by intranasal route once in 1 nostril may repeat dose every 2-3 minutes as needed alternating nostrils with each dose 10/10/19 20 Active Diclofenac Sodium (Voltaren) 1 % gelIndications: Calcaneal spur of foot, right,Right foot pain Apply up to 4x/d to affected joint(s) for pain/swelling 100 g 2 04/09/20 23 Active amLODIPine (Norvasc) 10 MG tabletIndicatio ns:Essential hypertension TAKE 1 TABLET BY MOUTH EVERY DAY 90 tablet 2 06/05/20 24 Active loratadine (Claritin) 10 MG tabletIndicatio ns:Non-seasonal allergic rhinitis due to other allergic trigger TAKE 1 TABLET BY MOUTH ONCE DAILY NEEDED 90 tablet 2 06/05/20 24 Active furosemide (Lasix) 20 MG tabletIndicatio ns:Essential hypertension,Ed kevon of lower extremity TAKE 2 TABLETS BY MOUTH ONCE DAILY IN THE MORNING 180 tablet 2 06/05/20 24 Active meloxicam (Mobic) 15 MG tablet Take 15 mg by mouth Once per day. 03/13/20 24 Active OXcarbazepine (Trileptal) 600 MG tablet TAKE 1 TABLET BY MOUTH TWICE DAILY IN THE MORNING AND AT BEDTIME DIRECTED, STOP abilify 07/11/20 Active Tirzepatide-Denilson ght Management (Zepbound) 7.5 MG/0.5ML solution auto-injectorIn dications:Class 3 severe obesity with serious comorbidity and body mass index (BMI) of 40.0 to 44.9 in adult, unspecified obesity type (CMS/HCC) Inject 0.5 mL (7.5 mg) under the skin 1 (one) time per week. 2 mL 11/17/19 Active atorvastatin (Lipitor) 40 MG tabletIndicatio ns:Hypercholest erolemia Take 1 tablet (40 mg) by mouth at bedtime. 90 tablet 3 11/17/19 25 2025 Active olmesartan (Benicar) 40 MG tabletIndicatio ns:Essential hypertension Take 1 tablet (40 mg) by mouth Once per day. 90 tablet 1 11/17/19 25 2024 Active oxybutynin XL (Ditropan-XL) 10 MG 24 hr tablet TAKE 2 TABLETS BY MOUTH ONCE DAILY DO NOT BREAK, CRUSH, DISSOLVE OR CHEW 10/18/19 25 Active metoprolol succinate XL (Toprol XL) 100 MG 24 hr tabletIndicatio ns:Essential hypertension Take 1 & 1/2 tablets (150 mg) by mouth daily. Do not crush or chew. 135 tablet 1 12/13/19 25 Active oxybutynin XL (Ditropan-XL) 15 MG 24 hr tablet Take 15 mg by mouth in the morning. 07/08/20 23 2024 Discontinued(D ose adjustment) metoprolol succinate XL (Toprol XL) 100 MG 24 hr tabletIndicatio ns:Essential hypertension Take 1 tablet (100 mg) by mouth Once per day. Do not crush or chew. 90 tablet 1 08/31/20 24 2024 Discontinued(R eorder (will not trigger notification to Pharmacy)) traMADol (Ultram) 50 MG tabletIndicatio ns:Pain TAKE 1 TABLET BY MOUTH EVERY 8 HOURS NEEDED FOR SEVERE PAIN 84 tablet 2 09/08/20 24 2024 Discontinued(R eorder (will not trigger notification to Pharmacy)) traMADol (Ultram) 50 MG tabletIndicatio ns:Pain Take 1 tablet (50 mg) by mouth every 8 (eight) hours if needed for severe pain for up to 7 days. Do not start before December 07, 2024. 21 tablet 12/08/19 25 2024 Active Problems Problem Noted Date Diagnosed Date terminal system operator (current) use of opiate analgesic 10/22 Anxiety disorder 01/28/2024 Panic attacks 01/28/2024 Moderate episode of recurrent major depressive d isorder 01/28/2024 Chronic pain of right ankle 07/13/2023 Overview (07/13/2023): x1 yr. improved in past w/ PT but declines to repeat at this time. would like 2nd opinion for ortho. Has seen podiatry in past. Using diclofenac gel w/o effect Edema of lower extremity 12/29/2021 Urge incontinence of urine 12/29/2021 Vitamin D deficiency 01/17/2019 Dysmenorrhea 12/26/2018 Essential hypertension 12/26/2018 Overview (07/13/2023): Cont (all once daily) amlodipine 10mg, lisinopril 40mg, metoprolol succ 50mg, lasix 20mg Optimize MAGALIS, cont CPAP use Smoking cessation encouraged Low salt diet, regular exercise Constipation 09/09/2015 Hypercholesterolemia 09/09/2015 Midline low back pain without sciatica 5 Migraine 09/09/2015 Obesity 09/09/2015 Obstructive sleep apnea syndrome 09/09/2015 Smoker 09/09/2015 Encounters Date Type Department Care Team Description 12/28/2024 Orders Only GENERIC EXTERNAL DATA DEPARTMENT Provider, Generic External Data 12/12/2024 Travel 12/06/2024 Refill [facility] [address] [place] [address] Olivia Pino ANP Class 3 severe obesity with serious comorbidity and body mass index (BMI) of 40.0 to 44.9 in adult, unspecified obesity type (CMS/HCC) 12/04/2024 Travel 12/04/2024 Telephone [facility] [address] [place] [address] Digna Hicks, RN fire chief's aide 12/01/2024 Telephone [facility] [address] [place] [address] Olivia Pino ANP Appointment Request 12/01/2024 Refill [facility] [address] [place] [address] Olivia Pino ANP Pain 12/01/2024 Population Health Risk Score [facility] () [address] [address] Provider, Population Health Generic 11/30/2024 Refill [facility] [address] [place] [address] Olivia Pino ANP Pain 11/17/2024 9:15 AM EST Office Visit [facility] [place] [address] Olivia Pino ANP Essential hypertension (Primary Dx); Class 3 severe obesity with serious comorbidity and body mass index (BMI) of 40.0 to 44.9 in adult, unspecified obesity type (CMS/HCC); Obstructive sleep apnea syndrome; Smoker; Screening mammogram for breast cancer; Hypercholesterolemi a; terminal system operator (current) use of opiate analgesic 11/17/2024 Travel 11/14/2024 Telephone [facility] [address] [place] [address] Samira Mcleod MA chart prep 11/03/2024 Patient Outreach [facility] [address] [place] [address] [phone] Olivia Pino ANP Pre-visit Planning (Pre-visit planning - LVM ) from Last 3 Months Immunizations Name Administration Dates Next Due Hep A, Adult 02/07/2013,12/07/2006 Hep B, adult 07/04/2007,03/03/2007,12/07/2006 Influenza injectable quadriv alent IIV4 with preservative 07/21/2016,09/09/2015 Influenza injectable quadriv alent preservative free 10/19/2023,06/15/2022,08/28/2021,10/10,08/22/2018,07/13/2017 Influenza, IIV3, injectable 06/14/2014, 1 Influenza, seasonal, injecta ble, preservative free 08/31/2024 Freddy SARS-CoV-2 Vaccination 03/11/2021 Moderna Covid-19 Vaccine 12+ 12/09/2021 Moderna Covid-19 Vaccine 6+ Bivalent 11/18/2022 Pfizer Covid-19 Vaccine 12+ 08/31/2024, 4 Pneumococcal Conjugate PCV 20 12/10/2022 Pneumococcal Polysaccharide PPSV23 09/08/2011 TD (adult), 2 Lf tetanus tox oid, preservative free, adsorbed 04/09/2023,09/28/2007 Td (adult), 5 Lf tetanus tox oid, preservative free, adsorbed 04/09/2023 Tdap 02/07/2013 Zoster, Recombinant 10/28/2023,04/12/2023 Social History Tobacco Use Types Packs/Day Years Used Date Smoking Tobacco: Every Day Cigarettes Passive Smoke Exposure: Current Smokeless Tobacco: Never Tobacco Cessation:Ready to Q uit: Not Asked; Counseling Given: Not Answered Alcohol Use Standard Drinks/Week Comments Never 0 [...] or Bhardwaj 07/20/2022 10 :19 AM EDT Last Filed Vital Signs Vital Sign Reading Time Taken Comments Blood Pressure 150/101 12/12/2024 11:49 AM EDT Pulse 76 12/12/2024 11:49 AM EDT Temperature 36.4 ??C (97.6 ??F) 11/17/2024 8:46 AM ES T Respiratory Rate 17 11/17/2024 8:46 AM EST Oxygen Saturation 99% 11/17/2024 8:46 AM EST Inhaled Oxygen Concentration - - Weight 112 kg (247 lb 3.2 oz) 11/17/2024 8:46 AM EST Height 162.6 cm (5' 4 ) 11/17/2024 8:46 AM EST Body Mass Index 42.43 11/17/2024 8:46 AM EST Plan of Treatment Upcoming Encounters Date Type Department Care Team (Late st Contact Info) Description 01/09/2025 1:30 PM EDT Telemedicine [facility] [address] [place] [address] Shaggy Huerta, PharmD [address] [place] [address] 01/12/2025 11:30 AM EDT Clinical Support [facility] [address] [place] [phone] Digna Hicks, STEPHANIE [address] [place] [address] 02/15/2025 2:00 PM EDT Office Visit [facility] [address] [place] [phone] Olivia Pino, ANP [address] [place] [address] Health Maintenance Due Date Last Done Comments CT Colonography 1972 Colonoscopy 1972 Colorectal Cancer Screening 1972 FIT DNA/Cologuard 1972 FIT 1972 FOBT 1972 HIV Screening 1972 Sigmoidoscopy 1972 Family Planning (PISQ) 1987 Hepatitis C Screening 1990 Mammogram 11/20/2021 11/21/2019, 0511/2018, 10/06/2018, Additional history exists Dental Oral Exam 10/02/2023 03/31/2023, , 05/26/2018, Additional history exists Dental Prophylaxis 10/02/2023 03/31/2023, 1 09/30/2020, 05/18/2019, Additional history exists Dental X-Ray: Bitewings 04/01/2024 03/31/20 23, 07/11/2021, 05/26/2018, Additional history exists Dental X-Ray: Full Mouth 02/07/2025 022, 07/11/2021, 08/21/2014 Alcohol/Substance Use Screening 08/08/2025 08/08/2024 SDOH Screening 08/08/2025 08/08/2024 Depression Screening 11/17/2025 11/17/2024, 11/17/19 Tobacco Screening 11/17/2025 11/17/2024 Cervical Cancer Screening 10/24/2027 HPV/Cotest 10/24/2027 10/24/2022, 07/13/2017 Pap Smear 10/24/2027 10/24/2022 Lipid Panel 05/02/2029 05/02/2024, 03/21, 03/31/2022, Additional history exists DTaP/Tdap/Td Vaccines (4 - Td or Tdap) 04/09/2033 04/09/2023, 04/09/2023, 02/07/2013, Additional history exists RSV Patients and Patients Aged 60 years or older (1 - 1-dose 75+ series) 2047 Hepatitis B Vaccines Completed 07/04/2007, 03/03/2007, 12/07/2006 Hepatitis A Vaccines Aged Out 02/07/2013, 12/08/19 07 No longer eligible based on patient's age to complete this topic Pneumococcal Vaccine: 50+ Years Completed 12/10/2022, 09/08/2011 Zoster Vaccines Completed 10/28/2023, 04/12/2023 COVID-19 Vaccine Completed 08/31/2024, , 11/18/2022, Additional history exists Influenza Vaccine Completed 08/31/2024, , 06/15/2022, Additional history exists HIB Vaccines Aged Out No longer eligi ble based on patient's age to complete this topic HPV Vaccines Aged Out No longer eligi ble based on patient's age to complete this topic IPV Vaccines Aged Out No longer eligi ble based on patient's age to complete this topic Meningococcal Vaccine Aged Out No rolando ashlee eligible based on patient's age to complete this topic RSV under 20 months Aged Out No longe r eligible based on patient's age to complete this topic Rotavirus Vaccines Aged Out No longer eligible based on patient's age to complete this topic Goals Goal Patient Goal Type Associated Problems Recent Progress Patient-Stated? Author Record your blood pressure once per day Blood Pressure No Yuridia Brown Blood Pressure < 140/90 Blood Pressure 150/101(12/12 11:49 AM EDT) No Yuridia Brown Quit using tobacco (cigarettes, smokeless, etc) Tobacco Use No Nancy Coats, PharmD Note: - Obtain patches from pharmacy - Determine strategies to avoid triggers - Determine coping mechanisms for cravings - Identify support persons (family, friends) -Determine quit day Procedures Procedure Name Priority Date/Time Associated Diagnosis Comments VITAMIN B12/FOLATE, SERUM PANEL Routine 12/28/2024 12:04 PM EDT LIPASE Routine 12/28/2024 12:04 PM EDT IRON AND TOTAL IRON BINDING CAPACITY Routine 12/28/2024 12:04 PM EDT COMPREHENSIVE METABOLIC PANEL Routine 12/28/2024 12:04 PM EDT CBC WITH AUTO DIFFERENTIAL Routine 12/28/2024 12:04 PM EDT LIPID PANEL, STANDARD Routine 05/02/2024 10:49 AM EDT Hypercholesterolem ia PROPHYLAXIS - ADULT Routine 03/31/2023 1 :00 PM EDT BITEWINGS - 4 RADIOGRAPHIC IMAGES Routine 03/31/2023 1:00 PM EDT PERIODIC ORAL EVALUATION - ESTABLISHED PATIENT Routine 03/31/2023 1:00 PM EDT THINPREP PAP AND HPV MRNA E6/E7 Routine 10/24/2022 4:18 PM EST PANORAMIC RADIOGRAPHIC IMAGE Routine 02/06/2022 12:00 AM EDT BI MAMMOGRAM SCREENING BILATERAL Routine 11/21/2019 12:12 PM EST from Last 3 Months or Most Recently Relevant to Health Maintenance Results * Vitamin B12 (Cobalamin) and Folate Panel, Serum (12/28/2024 12:04 PM EDT) Vitamin B12 208 200 - 900 pg/mL [facility] Comment:NORMAL 200-900 PG/ML INDETERMINATE 160-199 PG/ML DEFICIENT < 160 PG/ML Folate 9.5 > or = 4.0 ng/mL [facility] Comment:Reference Values:> o r = 4.0 ng/mL< 4.0 ng/mL suggests folate deficiency Methotrexate, aminopterin and folinic acid(leucovorin) are chemotherapeutic agents whose molecularstructures are similar to folate; therefore, the Architectfolate assay cannot be used for patients using these drugs. 12/28/2024 12:0 4 PM EDT 12/28/2024 12:04 PM EDT us Generic External Data Provider LAB BLOOD ORDERAB LES Final Result [facility] [address] [place] [address] [phone] * CBC auto differential (12/28/2024 12:04 PM EDT) White Blood Count 6.5 4.8 - 10.8 X10*3/uL [facility] Red Blood Count 4.42 4.20 - 5.50 X10*6/uL [facility] Hemoglobin 12.4 12.0 - 16.0 g/dl [facility] Hematocrit 38.9 37.0 - 47.0 % [facility] Mean Corpuscular Volume 88.0 80.0 - 98.0 fL [facility] Mean Corpuscular Hemoglobin 28.1 27.0 - 33.0 pg [facility] Mean Corpuscular HGB Conc 31.9 31.0 - 35.0 g/dl [facility] Red Cell Distribution Width 14.1 11.0 - 16.0 % [facility] Platelet Count 239 160 - 400 X10*3/uL [facility] Mean Platelet Volume 10.0 9.4 - 12.3 fL [facility] Neutrophils Percent Auto 55.0 45 - 73 % [facility] Imm Gran Pct Auto 0.3 0.0 - 0.4 % [facility] Lymphocytes Percent Auto 34.1 20 - 40 % [facility] Monocytes Percent Auto 7.4 2 - 11 % [facility] Eosinophils Percent Auto 2.6 0 - 4 % [facility] Basophils Percent Auto 0.6 0 - 2 % [facility] NRBC Pct Auto 0.0 0.0 - 0.2 /100WBC [facility] Neutrophils Absolute Auto 3.6 2.0 - 8.3 x10*3/uL [facility] Imm Gran Abs Auto 0.02 0.00 - 0.03 X10*3/uL [facility] Lymphocytes Absolute Auto 2.2 1.2 - 4.9 X10*3/uL [facility] Monocytes Absolute Auto 0.5 0.1 - 1.2 X10*3/uL [facility] Eosinophils Absolute Auto 0.2 0.0 - 0.4 X10*3/uL [facility] Basophils Absolute Auto 0.0 0.0 - 0.2 X10*3/uL [facility] NRBC Abs Auto 0.000 0.0 - 0.012 X10*3/uL [facility] 12/28/2024 12:0 4 PM EDT 12/28/2024 12:04 PM EDT Generic External Data Provider LAB BLOOD ORDERAB LES Final Result Performing Organization Address City/[facility]/ZIP Co de Phone Number [facility] [address] [place] [phone] * Iron And Total Iron Binding Capacity (12/28/2024 12:04 PM EDT) Iron 82 30 - 160 mcg/dL [facility] Total Iron Binding Capacity 267 228 - 428 mcg/dL [facility] Percent Iron Saturation 31 15 - 50 % [facility] Unsaturated Iron Binding 185 ug/dL [facility] 12/28/2024 12:0 4 PM EDT 12/28/2024 12:04 PM EDT Generic External Data Provider LAB BLOOD ORDERAB LES Final Result Performing Organization Address City/[facility]/ZIP Co de Phone Number [facility] [address] [place] [address] [phone] * Lipase (12/28/2024 12:04 PM EDT) Lipase 24 8 - 78 U/L [facility] 12/28/2024 12:0 4 PM EDT 12/28/2024 12:04 PM EDT us Generic External Data Provider LAB BLOOD ORDERAB LES Final Result Performing Organization Address City/[facility]/ZIP Co de Phone Number [facility] [address] [place] [phone] * (ABNORMAL) Comprehensive Metabolic Panel (12/28/2024 12:04 PM EDT) Sodium 142 135 - 145 mmol/L [facility] Potassium 4.1 3.3 - 5.1 mmol/L [facility] Chloride 106 96 - 108 mmol/L [facility] Carbon Dioxide 30(H) 22 - 29 mmol/L [facility] Anion Gap 10(L) 12 - 20 [facility] Urea Nitrogen (BUN) 8(L) 9 - 16 mg/dL [facility] Creatinine, Serum 0.67 0.5 - 1.4 mg/dL [facility] Estimated Glomerular Filt Rate >60 [facility] Comment:Chronic Kidney Disea se: Estimated GFR < 60 mL/min/1.73x4Zxdspr Kidney Disease: Estimated GFR < 15 mL/min/1.73m2 Glucose 73 60 - 115 mg/dL [facility] Calcium 9.3 8.4 - 10.2 mg/dL [facility] Bilirubin, Total 0.7 0.0 - 1.0 mg/dL [facility] Aspartate Amino Transferase 15 5 - 31 U/L [facility] Alanine Aminotransferase 11 0 - 31 U/L [facility] Total Protein 6.8 6.5 - 8.0 g/dL [facility] Albumin Level 4.0 3.5 - 5.0 g/dL [facility] Alkaline Phosphatase 80 39 - 117 U/L [facility] 12/28/2024 12:0 4 PM EDT 12/28/2024 12:04 PM EDT us Generic External Data Provider LAB BLOOD ORDERAB LES Final Result Performing Organization Address City/[facility]/ZIP Co de Phone Number [facility] [address] [place] [address] [phone] * Lipid Panel, Standard (05/02/2024 10:49 AM EDT) Triglycerides 76 <150 mg/dL [facility] Comment:Desirable Triglyceri de: less than 150 mg/dLBorderline High Triglyceride 150-199 mg/dLHigh Triglyceride: 200-499 mg/dLVery High Triglyceride: greater than or equal to 5OO mg/dL Cholesterol 146 <200 mg/dL [facility] Comment:Desirable Cholestero l: less than 200 mg/dLBorderline High Cholesterol: 200-239 mg/dLHigh Cholesterol: greater than 239 mg/dL LDL Cholesterol Calculated 90 <100 mg/dL [facility] Comment:Desirable LDL: less than 100 mg/dLNear Optimal/Above Optimal LDL: 110- 129 mg/dLBorderline High LDL: 130-159 mg/dLHigh LDL: 160-189 mg/dLVery High LDL: greater than or equal to 190 mg/dL HDL Cholesterol 41 >40 mg/dL [facility] Comment:Desirable HDL: grea ter than 40 mg/dL Note: This HDL assay may give artificially low results in patients with liver disease. Blood Venous blood specimen / Unknown 05/02/2024 10:49 AM EDT 05/02/2024 11:33 AM EDT On license of [facility] LAB BLOOD ORDERABLES Final Resul t [facility] [address] [place] [address] [phone] * Thinprep PAP and HPV nRNA E6/E7 (10/24/2022 4:18 PM EST) Clinical Information: ANNUAL PAP [facility] LMP: NONE GIVEN [facility] Prev. PAP: NONE GIVEN [facility] [place] [facility] Prev. BX: NO [facility] SOURCE: None given [facility] Statement Of Adequacy: [facility] Comment: Satisfactory for evaluation. Endocervical/transformation zone component present. Interpretation/ Result: Negative for intraepithelial lesion or malignancy. [facility] [place] [employer]: [facility] [place] [employer] Comment: SXA, CT(ASCP) CT screening location: [address] ??[phone] Review Cytotechnologis t: [facility] [place] [employer] Comment: DMM, CT(ASCP) CT screening location: [address] ??[phone] (Always Message) [facility] [place] [employer] Comment: EXPLANATORY NOTE: The Pap is a screening test for cervical cancer. It is not a diagnostic test and is subject to false negative and false positive results. It is most reliable when a satisfactory sample, regularly obtained, is submitted with relevant clinical findings and history, and when the Pap result is evaluated along with historic and current clinical information. HPV nRNA E6/E7 Not Detected Not Detected [facility] Comment: Methodology: Construction Area Manager-Mediated Amplification This assay detects E6/E7 viral messenger RNA (mRNA) from 14 high-risk HPV types (16,18,31,33,35,39,45,51,52,56,58,59,66,68). Cervical sources are required for HPV testing. If a vaginal source from a patient who has had a total hysterectomy with removal of cervix was submitted, please contact the testing laboratory for alternative testing options. For additional information, please refer to [email or web address] (This link if provided for information/ educational purposes only.) NO COLLECTION DATE RECEIVED. WE HAVE USED THE DATE THE SPECIMEN WAS RECEIVED BY THIS LABORATORY THE COLLECTION DATE. IF THIS IS INCORRECT, PLEASE CONTACT CLIENT SERVICES. PHONE NUMBER: 10/19/2022 11: 48 PM EST Narrative [facility] - 10/24/2022 4:18 PM EST FASTING: UNKNOWN On license of [facility] LAB PATHOLOGY ORDERABLES Final R esult [facility] [address] [place] [address] [facility] [address], ([address]) [place] [address] * 3D DIGITAL MELVI SCR MAMMO 1 (11/21/2019 12:12 PM EST) Anatomical Region Laterality Modality Breast Bilateral Mammography 11/21/2019 12:1 2 PM EST Narrative 11/21/2019 12:14 PM EST Refer to the Notes tab for result details [facility] Procedure: 3D DIGITAL MELVI SCR MAMMO 1 Procedure Note Provider, MD Amadeo - 12/12/2022 Refer to the Notes tab for result details [facility] Procedure: 3D DIGITAL MELVI SCR MAMMO 1 Katarzyna Vega NP IMG BI PROCEDURES Final Result from Last 3 Months or Most Recently Relevant to Health Maintenance Insurance [facility] C3 DENTAL-[facility] MEDICAID STAND ADULT Care Teams Baking Assistant Relationship Specialty Start Date End Date Olivia Pino ANP [address] [place] [address] PCP - General Family Medicine 05/15/22 Shaggy Huerta, YuriD [address] [place] [address] Pharmacist Internal Medicine 08/31/24 Mónica Magallon Bee TenderBrine Room Laborer 04/26/24
--- OUTSIDE RECORDS SUMMARY | 2024-12-28 14:09 | XMS_ITS | Encounter Summary ---
Author Organization [facility] Address [address] [place] [address] Care Team Providers Care Underwriter Name Role Phone Olivia Pino Primary Care Provider [phone] Shaggy Huerta PharmD Unavailable [phone] Reason for Visit * Reason Comments Med Refill Encounter Details Date Type Department Care Team ([facility] st Contact Info) Description 09/14/2023 Refill [facility] [address] [place], [place] [phone] Olivia Pino ANP [address], [place] [phone] Pain Social History Tobacco Use Types Packs/Day [...] Info) Description 01/09/2025 1:30 PM EDT Telemedicine [address] [address] Shaggy Huerta, YuriD [address] [place] [phone] 01/12/2025 11:30 AM EDT Clinical Support [address] [address] Digna Hicks, RN [address] [place] [address] 02/15/2025 2:00 PM EDT Office Visit [facility] [address] [place] [phone] Olivia Pino ANP [address] [place] [phone] documented as of this encounter Goals Goal [...] documented as of this encounter Care Teams Underwriter Relationship Specialty Start Date End Date Olivia Pino ANP [address] [place] [address] PCP - General Family Medicine 05/15/22 Shaggy Huerta PharmD [address] [place] [address] Pharmacist Internal Medicine 08/31/24 Mónica Magallon Executive Chef AssistantPlant Utilities Engineer 04/26/24 documented as of this encounter
--- OUTSIDE RECORDS SUMMARY | 2024-12-28 14:09 | XMS_ITS | Encounter Summary ---
Author Organization [employer] Address [address] 7[address] [place] [address] Care Team Providers Care Coordinator Mining Products Name Role Phone Olivia Pino Primary Care Provider [phone] Shaggy Huerta PharmD Unavailable [phone] Reason for Visit * Reason Onset Date Comments Med Refill 09/14/2023 Encounter Details Date Type Department Care Team ([facility] Contact Info) Description 09/14/2023 Telephone [facility] MEDICINE [address] [place], [place] [phone] Olivia Pino ANP [address] [place], [place] [phone] Med Refill Social History Tobacco Use Types Packs/Day Years [...] encounter Miscellaneous Notes * Telephone Encounter - Paige Rodriguez LPN - 09/14/2023 2:41 PM EST Medication was prescribed on 06/12/22 for 12 weeks. * Telephone Encounter - Greg Magallon - 09/14/2023 2:01 PM EST TC from pt requesting medication refill. Medications needing refill : cholecalciferol (Vitamin D-3) 1.25 MG (36465 UT) capsule documented in this encounter Plan of Treatment Upcoming Encounters Date Type Department Care Team (Late st Contact Info) Description 01/09/2025 1:30 PM EDT Telemedicine [facility] MEDICINE [address] [place] [address] Shaggy Huerta, PharmD [address] [place] [address] 01/12/2025 11:30 AM EDT Clinical Support [facility] MEDICINE [address] [place] [address] Digna Hicks, STEPHANIE [address] [place] [address] 02/15/2025 2:00 PM EDT Office Visit [facility] MEDICINE [address] [place] [address] Olivia Pino ANP [address] [place] [address] documented as of this encounter Goals Goal [...] documented as of this encounter Care Teams Coordinator Mining Products Relationship Specialty Start Date End Date Olivia Pino ANP 230 [place] [address] PCP - General Family Medicine 05/15/22 Shaggy Huerta, Shena [address] [place] [address] Pharmacist Internal Medicine 08/31/24 Mónica Magallon Looping InspectorVice Principal 04/26/24 documented as of this encounter
--- OUTSIDE RECORDS SUMMARY | 2024-12-28 14:10 | XMS_ITS | Encounter Summary ---
Author Organization [employer] Address [address] 7[address] [place] [address] Care Team Providers Care Pastry Cook Apprentice Name Role Phone Olivia Pino Primary Care Provider [phone] Shaggy Huerta PharmD Unavailable [phone] Reason for Visit * Reason Comments Med Refill Encounter Details Date Type Department Care Team ([facility] st Contact Info) Description 10/28/2023 Refill [facility] MEDICINE 230 [place], [place] [phone] Olivia Pino ANP 230 [place], [place] [phone] Social History Tobacco Use Types Packs/Day Years [...] Info) Description 01/09/2025 1:30 PM EDT Telemedicine [address] [address] Shaggy Huerta, Shena [address] [place] [address] 01/12/2025 11:30 AM EDT Clinical Support [address] [address] Digna Hicks, RN 505 [place] [address] 02/15/2025 2:00 PM EDT Office Visit [address] [address] Olivia Pino ANP [address] [place] [address] documented as of this encounter Goals Goal [...] documented as of this encounter Care Teams Pastry Cook Apprentice Relationship Specialty Start Date End Date Olivia Pino ANP 230 [place] [address] PCP - General Family Medicine 05/15/22 Shaggy Huerta PharmD 230 [place] [address] Pharmacist Internal Medicine 08/31/24 Mónica Magallon Recreation ClerkRehabilitation Program Manager 04/26/24 documented as of this encounter
[2024-12-29 08:09] LABS: CRP High Sensitivity 11.3 mg/L
[2024-12-29 10:38] LABS: IgA 197 mg/dL (47-310); IgG 1069 mg/dL (600-1640); IgM 50 mg/dL (50-300)
[2024-12-29 13:54] LABS: Transglutaminase IgA <1.0 U/mL
[2025-01-01 09:33] LABS: Alpha-Tocopherol 13.7 mg/L (5.7-19.9); Beta-Gamma Tocopherol 1.5 mg/L (<=4.3)
[2025-01-01 09:53] LABS: Vitamin A 34 mcg/dL (38-98)
[2025-01-02 02:33] LABS: Vitamin K1 249 pg/mL (130-1500)
[2025-01-02 17:37] LABS: VITAMIN D (1,25 OH) D3 44 pg/mL; Vit D (1,25-Dihydroxy) Total 44 pg/mL (18-72); Vitamin D (1,25 OH) D2 <8 pg/mL
== END 2024-12-28 11:35 | disposition home or self-care (01) ==
LOC: HO.MAMMO 11:34
PROVIDERS: Absent Provider Nurse Practitioner Family; PCP Nurse Practitioner Primary Care; Visit Provider Nurse Practitioner Primary Care
DX: Z12.31 Encounter for screening mammogram for malignant neoplasm of breast (principal); R10.13 Epigastric pain; K59.00 Constipation, unspecified
CPT/HCPCS: 36415; 77063; 77067; 80053; 82607; 82652; 82746; 82784; 83540; 83690; 84446; 84590; 84597; 85025; 86141; 86364

== ENCOUNTER → 2024-12-28 14:00 | Outpatient (BNV) | payer MEDICAID, SELFPAY | PROVIDERS: Absent Provider Nurse Practitioner Family; PCP Nurse Practitioner Primary Care; Visit Provider Internal Medicine | DX: Z12.31 Encounter for screening mammogram for malignant neoplasm of breast (principal) | CPT/HCPCS: 77063; 77067 ==

== ENCOUNTER 2024-12-28 22:00 | Outpatient (REF) | payer MEDICAID, SELFPAY ==
--- OUTSIDE RECORDS SUMMARY | 2024-12-29 11:47 | XMS_ITS | Encounter Summary ---
Author Organization [employer] Address [address] [address] 7t [place] [address] Care Team Providers Care Stummel Selector Name Role Phone Olivia Pino Primary Care Provider Shaggy Huerta PharmD Unavailable [phone] Reason for Visit * Reason Onset Date Comments Nurse Triage 12/08/2023 Encounter Details Date Type Department Care Team ([facility] st Contact Info) Description 12/08/2023 Telephone [facility] MEDICINE 230 [place], [place] [phone] Olivia Pino ANP 230 [place], [place] [phone] Nurse Triage Social History Tobacco Use Types [...] head injury The caller accepted this outcome Romansh speaker documented in this encounter Plan of Treatment Upcoming Encounters Date Type Department Care Team (Late st Contact Info) Description 01/09/2025 1:30 PM EDT Telemedicine [address] [address] Shaggy Huerta, PharmD [address] [place] [address] 01/12/2025 11:30 AM EDT Clinical Support [facility] MEDICINE [address] [place] [address] Digna Hicks RN 505 [place] [address] 02/15/2025 2:00 PM EDT Office Visit [address] [address] Olivia Pino ANP [address] [place] [address] documented as of this encounter Goals Goal [...] documented as of this encounter Care Teams Stummel Selector Relationship Specialty Start Date End Date Olivia Pino ANP 230 [place] [address] PCP - General Family Medicine 05/15/22 Shaggy Huerta, Shena 230 [place] [address] Pharmacist Internal Medicine 08/31/24 Mónica Magallon Rag Sorter And CutterHop Worker 04/26/24 documented as of this encounter
--- OUTSIDE RECORDS SUMMARY | 2024-12-29 11:47 | XMS_ITS | Encounter Summary ---
Author Organization [employer] Address [address] [facility] [address] 7[address] [place] [address] Care Team Providers Care Swimming Coach Or Instructor Name Role Phone Olivia Pino Primary Care Provider [phone] Shaggy Huerta PharmD Unavailable [phone] Reason for Visit * Reason Comments Med Refill Encounter Details Date Type Department Care Team ([facility] st Contact Info) Description 09/14/2023 Refill [facility] 505 [place], [place] [phone] Olivia Pino ANP [address] [place], [place] [phone] Pain Social History Tobacco Use Types Packs/Day [...] Info) Description 01/09/2025 1:30 PM EDT Telemedicine [address] [address] Shaggy Huerta, YuriD [address] [place] [address] 01/12/2025 11:30 AM EDT Clinical Support [address] [address] Digna Hicks, RN 505 [place] [address] 02/15/2025 2:00 PM EDT Office Visit [facility] MEDICINE [address] [place] [address] Olivia Pino ANP [address] [place] [address] documented as of this encounter Goals Goal [...] documented as of this encounter Care Teams Swimming Coach Or Instructor Relationship Specialty Start Date End Date Olivia Pino ANP 230 [place] [address] PCP - General Family Medicine 05/15/22 Shaggy Huerta PharmD 230 [place] [address] Pharmacist Internal Medicine 08/31/24 Mónica Magallon Power Generation TechnicianEnrichment Director 04/26/24 documented as of this encounter
--- OUTSIDE RECORDS SUMMARY | 2024-12-29 11:47 | XMS_ITS | Encounter Summary ---
Author Organization [employer] Address [address] 7[address] [place] [address] Care Team Providers Care Hand Bunch Maker Name Role Phone Olivia Pino Primary Care Provider [phone] Shaggy Huerta PharmD Unavailable [phone] Reason for Visit * Reason Onset Date Comments PA 06/28/2024 Encounter Details Date Type Department Care Team ([facility] Contact Info) Description 06/28/2024 Telephone [facility] MEDICINE 230 [place], [place] [phone] Olivia Pino ANP 230 [place], [place] [phone] PA Social History Tobacco Use Types Packs/Day [...] 01/09/2025 1:30 PM EDT Telemedicine [facility] MEDICINE [address] [place] [address] Shaggy Huerta, PharmD [address] [place] [address] 01/12/2025 11:30 AM EDT Clinical Support [facility] MEDICINE [address] [place] [address] Digna Hicks, RN 505 [place] [address] 02/15/2025 2:00 PM EDT Office Visit [facility] MEDICINE [address] [place] [address] Olivia Pino ANP 230 [place] [address] documented as of this encounter Goals Goal [...] documented as of this encounter Care Teams Hand Bunch Maker Relationship Specialty Start Date End Date Olivia Pino ANP [address] [place] [address] PCP - General Family Medicine 05/15/22 Shaggy Huerta, Shena [address] [place] [address] Pharmacist Internal Medicine 08/31/24 Mónica Magallon Actuarial ClerkEmail Deployment Specialist 04/26/24 documented as of this encounter
--- OUTSIDE RECORDS SUMMARY | 2024-12-29 11:47 | XMS_ITS | Encounter Summary ---
Author Organization [employer] Address [address] [facility] 7t [place] [address] Care Team Providers Care It Application Support Analyst Name Role Phone Olivia Pino Primary Care Provider [phone] Shaggy Huerta PharmD Unavailable [phone] Reason for Visit * Reason Comments Med Refill Encounter Details Date Type Department Care Team ([facility] st Contact Info) Description 11/30/2024 Refill [facility] MEDICINE 230 [place], [place] [phone] Olivia Pino ANP 230 [place], [place] [phone] Pain Social History Tobacco Use Types Packs/Day [...] the past 12 months, has t he [employer], [employer], oil or water [employer] threatened to shut off services in your [...] Description 01/09/2025 1:30 PM EDT Telemedicine [address] [address] Shaggy Huerta, PharmD [address] [place] [address] 01/12/2025 11:30 AM EDT Clinical Support [address] [address] Digna Hicks, STEPHANIE 505 [place] [address] 02/15/2025 2:00 PM EDT Office Visit [address] [address] Olivia Pino, WILIAN [address] [place] [address] documented as of this encounter Goals Goal [...] documented as of this encounter Care Teams It Application Support Analyst Relationship Specialty Start Date End Date Olivia Pino ANP 230 [place] [address] PCP - General Family Medicine 05/15/22 Shaggy Huerta, YuriD [address] [place] [address] Pharmacist Internal Medicine 08/31/24 Mónica Magallon Accountant ControllerResearch And Development Researcher 04/26/24 documented as of this encounter
--- OUTSIDE RECORDS SUMMARY | 2024-12-29 11:47 | XMS_ITS | Clinical Summary ---
Author Organization [employer] Address [address] 7[address] [place] [address] Care Team Providers Care Groundhand Name Role Phone Olivia Pino WILIAN Primary Care Provider [phone] Shaggy Huerta PharmD Unavailable [phone] Allergies No known active allergies Medications Adderall [...] Problems Problem Noted Date Diagnosed Date terminal superintendent (current) use of opiate analgesic 10/22 Anxiety [...] Generic External Data 12/12/2024 Travel 12/06/2024 Refill [facility] MEDICINE [address] [place] [address] Olivia Pino ANP Class 3 severe obesity with serious comorbidity and body mass index (BMI) of 40.0 to 44.9 in adult, unspecified obesity type (CMS/HCC) 12/04/2024 Travel 12/04/2024 Telephone [facility] 505 [place] [address] Digna Hicks, RN physical therapist 12/01/2024 Telephone [facility] MEDICINE [address] [place] [address] Olivia Pino ANP Appointment Request 12/01/2024 Refill [facility] MEDICINE [address] [place] [address] Olivia Pino ANP Pain 12/01/2024 Population Health Risk Score [facility] () [address] [phone] Provider, Population Health Generic 11/30/2024 Refill [facility] MEDICINE [address] [place] [address] Olivia Pino ANP Pain 11/17/2024 9:15 AM EST Office Visit [facility] [place] [address] Olivia Pino ANP Essential hypertension (Primary Dx); Class 3 severe obesity with serious comorbidity and body mass index (BMI) of 40.0 to 44.9 in adult, unspecified obesity type (CMS/HCC); Obstructive sleep apnea syndrome; Smoker; Screening mammogram for breast cancer; Hypercholesterolemi a; terminal superintendent (current) use of opiate analgesic 11/17/2024 Travel 11/14/2024 Telephone [facility] MEDICINE [address] [place] [address] Samira Mcleod [place] chart prep 11/03/2024 Patient Outreach [facility] MEDICINE [address] [place] [address] [phone] Olivia Pino ANP Pre-visit Planning (Pre-visit planning [...] Info) Description 01/09/2025 1:30 PM EDT Telemedicine [facility] MEDICINE [address] [place] [address] Shaggy Huerta, PharmD [address] [place] [address] 01/12/2025 11:30 AM EDT Clinical Support [facility] MEDICINE [address] [place] [address] Digna Hicks, STEPHANIE 505 [place] [address] 02/15/2025 2:00 PM EDT Office Visit [facility] MEDICINE [address] [place] [address] Olivia Pino, ANP [address] [place] [address] Health Maintenance Due Date Last Done Comments [...] Smear 10/24/2027 10/24/2022 Lipid Panel 05/02/2029 05/02/2024, 0709/2022, 03/31/2022, Additional history exists DTaP/Tdap/Td Vaccines (4 [...] Procedure Name Priority Date/Time Associated Diagnosis Comments IMMUNOGLOBULINS, QUANTITATIVE, IGA, IGG, IGM Routine 12/28/2024 12:04 PM EDT CRP, HIGH SENSITIVITY Routine 12/28/2024 12:04 PM EDT VITAMIN B12/FOLATE, SERUM PANEL Routine 12/28/2024 12:04 [...] Vitamin B12 208 200 - 900 pg/mL [facility] Comment:NORMAL 200-900 PG/ML INDETERMINATE 160-199 PG/ML DEFICIENT < 160 PG/ML Folate 9.5 > or = 4.0 ng/mL [facility] Comment:Reference Values:> o r = 4.0 ng/mL< 4.0 ng/mL suggests folate deficiency Methotrexate, aminopterin and folinic acid(leucovorin) are chemotherapeutic agents whose molecularstructures are similar to folate; therefore, the Architectfolate assay cannot be used for patients using these drugs. 12/28/2024 12:0 4 PM EDT 12/28/2024 12:04 PM EDT us Generic External Data Provider LAB BLOOD ORDERAB LES Final Result [facility] [address] [place] [address] [phone] * CBC auto differential (12/28/2024 12:04 PM EDT) White Blood Count 6.5 4.8 - 10.8 X10*3/uL [facility] Red Blood Count 4.42 4.20 - 5.50 X10*6/uL [facility] Hemoglobin 12.4 12.0 - 16.0 g/dl [facility] Hematocrit 38.9 37.0 - 47.0 % [facility] Mean Corpuscular Volume 88.0 80.0 - 98.0 fL [facility] Mean Corpuscular Hemoglobin 28.1 27.0 - 33.0 pg [facility] Mean Corpuscular HGB Conc 31.9 31.0 - 35.0 g/dl [facility] Red Cell Distribution Width 14.1 11.0 - 16.0 % [facility] Platelet Count 239 160 - 400 X10*3/uL [facility] Mean Platelet Volume 10.0 9.4 - 12.3 fL [facility] Neutrophils Percent Auto 55.0 45 - 73 % [facility] Imm Gran Pct Auto 0.3 0.0 - 0.4 % [facility] Lymphocytes Percent Auto 34.1 20 - 40 % [facility] Monocytes Percent Auto 7.4 2 - 11 % [facility] Eosinophils Percent Auto 2.6 0 - 4 % [facility] Basophils Percent Auto 0.6 0 - 2 % [facility] NRBC Pct Auto 0.0 0.0 - 0.2 /100WBC [facility] Neutrophils Absolute Auto 3.6 2.0 - 8.3 x10*3/uL [facility] Imm Gran Abs Auto 0.02 0.00 - 0.03 X10*3/uL [facility] Lymphocytes Absolute Auto 2.2 1.2 - 4.9 X10*3/uL [facility] Monocytes Absolute Auto 0.5 0.1 - 1.2 X10*3/uL [facility] Eosinophils Absolute Auto 0.2 0.0 - 0.4 X10*3/uL [facility] Basophils Absolute Auto 0.0 0.0 - 0.2 X10*3/uL [facility] NRBC Abs Auto 0.000 0.0 - 0.012 X10*3/uL [facility] 12/28/2024 12:0 4 PM EDT 12/28/2024 12:04 PM EDT Generic External Data Provider LAB BLOOD ORDERAB LES Final Result Performing Organization Address City/[facility]/ZIP Co de Phone Number [facility] [address] [place] [phone] * Iron And Total Iron Binding Capacity (12/28/2024 12:04 PM EDT) [facility] Iron 82 30 - 160 mcg/dL [facility] Total Iron Binding Capacity 267 228 - 428 mcg/dL [facility] Percent Iron Saturation 31 15 - 50 % [facility] Unsaturated Iron Binding 185 ug/dL [facility] 12/28/2024 12:0 4 PM EDT 12/28/2024 12:04 PM EDT us Generic External Data Provider LAB BLOOD ORDERAB LES Final Result Performing Organization Address City/[facility] Co de Phone Number [facility] [address] [place] [phone] * Lipase (12/28/2024 12:04 PM EDT) Lipase 24 8 - 78 U/L [facility] 12/28/2024 12:0 4 PM EDT 12/28/2024 12:04 PM EDT us Generic External Data Provider LAB BLOOD ORDERAB LES Final Result [facility] [address] [place] [address] [phone] * (ABNORMAL) Comprehensive Metabolic Panel (12/28/2024 12:04 PM EDT) Sodium 142 135 - 145 mmol/L [facility] Potassium 4.1 3.3 - 5.1 mmol/L [facility] Chloride 106 96 - 108 mmol/L [facility] Carbon Dioxide 30(H) 22 - 29 mmol/L [facility] Anion Gap 10(L) 12 - 20 [facility] Urea Nitrogen (BUN) 8(L) 9 - 16 mg/dL [facility] Creatinine, Serum 0.67 0.5 - 1.4 mg/dL [facility] Estimated Glomerular Filt Rate >60 [facility] Comment:Chronic Kidney Disea se: Estimated GFR < 60 mL/min/1.46y2Pwxnma Kidney Disease: Estimated GFR < 15 mL/min/1.73m2 Glucose 73 60 - 115 mg/dL [facility] Calcium 9.3 8.4 - 10.2 mg/dL [facility] Bilirubin, Total 0.7 0.0 - 1.0 mg/dL [facility] Aspartate Amino Transferase 15 5 - 31 U/L [facility] Alanine Aminotransferase 11 0 - 31 U/L [facility] Total Protein 6.8 6.5 - 8.0 g/dL [facility] Albumin Level 4.0 3.5 - 5.0 g/dL [facility] Alkaline Phosphatase 80 39 - 117 U/L [facility] 12/28/2024 12:0 4 PM EDT 12/28/2024 12:04 PM EDT Generic External Data Provider LAB BLOOD ORDERAB LES Final Result Performing Organization Address City/[facility]/ZIP Co de Phone Number [facility] [address] [place] [phone] * Lipid Panel, Standard (05/02/2024 10:49 AM EDT) Triglycerides 76 <150 mg/dL [facility] Comment:Desirable Triglyceri de: less than 150 mg/dLBorderline High Triglyceride 150-199 mg/dLHigh Triglyceride: 200-499 mg/dLVery High Triglyceride: greater than or equal to 5OO mg/dL Cholesterol 146 <200 mg/dL [facility] Comment:Desirable Cholestero l: less than 200 mg/dLBorderline High Cholesterol: 200-239 mg/dLHigh Cholesterol: greater than 239 mg/dL LDL Cholesterol Calculated 90 <100 mg/dL [facility] Comment:Desirable LDL: less than 100 mg/dLNear Optimal/Above Optimal LDL: 110- 129 mg/dLBorderline High LDL: 130-159 mg/dLHigh LDL: 160-189 mg/dLVery High LDL: greater than or equal to 190 mg/dL HDL Cholesterol 41 >40 mg/dL [facility] Comment:Desirable HDL: great er than 40 mg/dL Note: This HDL assay may give artificially low results in patients with liver disease. Blood Venous blood specimen / Unknown 05/02/2024 10:49 AM EDT 05/02/2024 11:33 AM EDT [facility] LAB BLOOD ORDERABLES Final Resul t Performing Organization Address City/[facility]/ZIP Co de Phone Number [facility] [address] [place] [address] [phone] * Thinprep PAP and HPV nRNA E6/E7 (10/24/2022 4:18 PM EST) Clinical Information: ANNUAL PAP [facility] LMP: NONE GIVEN [facility] Prev. PAP: NONE GIVEN [facility] Prev. BX: NO [facility] SOURCE: None given [facility] Statement Of Adequacy: [facility] Comment: Satisfactory for evaluation. Endocervical/transformation zone component present. Interpretation/ Result: Negative for intraepithelial lesion or malignancy. [facility] Cytotechnologis t: [facility] Comment: SXA, CT(ASCP) CT screening location: [address] ??[phone] Review Cytotechnologis t: [facility] Comment: DMM, CT(ASCP) CT screening location: [address] ??[phone] (Always Message) [facility] [employer] Comment: EXPLANATORY NOTE: The Pap is a [...] HPV nRNA E6/E7 Not Detected Not Detected [employer] Comment: Methodology: Labor Relations Manager-Mediated Amplification This assay detects E6/E7 viral messenger RNA (mRNA) from 14 high-risk HPV types (16,18,31,33,35,39,45,51,52,56,58,59,66,68). Cervical sources are required for HPV testing. If a vaginal source from a patient who has had a total hysterectomy with removal of cervix was submitted, please contact the testing laboratory for alternative testing options. For additional information, please refer to http://education.Videostrip/faq/GKU714p0 (This link if provided for information/ educational purposes only.) NO COLLECTION DATE RECEIVED. WE HAVE USED THE DATE THE SPECIMEN WAS RECEIVED BY THIS LABORATORY THE COLLECTION DATE. IF THIS IS INCORRECT, PLEASE CONTACT CLIENT SERVICES. PHONE NUMBER: 10/19/2022 11: 48 PM EST Narrative [facility] - 10/24/2022 4:18 PM EST FASTING: UNKNOWN us Olivia Pino ANP LAB PATHOLOGY ORDERABLES Final R esult [facility] [address], [address], [place] [address] [facility] [address], ([address]) [place] [address] * 3D DIGITAL MELVI SCR MAMMO 1 [...] Most Recently Relevant to Health Maintenance [place] [address] [address] [place] [address] C3 [facility] MEDICAID STAND ADULT Care Teams Groundhand Relationship Specialty Start Date End Date Olivia Pino ANP [address] [place] [address] PCP - General Family Medicine 05/15/22 Shaggy Huerta PharmD [address] [place] [address] Pharmacist Internal Medicine 08/31/24 Mónica Magallon Waterside WorkerTrimming Machine Set Up Operator 04/26/24
--- OUTSIDE RECORDS SUMMARY | 2024-12-29 11:47 | XMS_ITS | Encounter Summary ---
Author Organization [employer] Address 75 [facility] 7 [place] [address] Care Team Providers Care Time Study Observer Name Role Phone Olivia Pino WILIAN Primary Care Provider [phone] Shaggy Huerta PharmD Unavailable [phone] Reason for Visit * Reason Comments Med Refill Encounter Details Date Type Department Care Team ([facility] st Contact Info) Description 02/28/2024 Refill [facility] MEDICINE 230 [place], [place] [phone] Rosalia Reich MD 230 [place], [place] [phone] Pain Social History Tobacco Use Types Packs/Day [...] Info) Description 01/09/2025 1:30 PM EDT Telemedicine [address] [address] Shaggy Huerta, YuriD [address] [place] [address] 01/12/2025 11:30 AM EDT Clinical Support [address] [address] Digna Hicks, RN 505 [place] [address] 02/15/2025 2:00 PM EDT Office Visit [facility] MEDICINE [address] [place] [address] Olivia Pino ANP [address] [place] [address] documented as of this encounter Goals Goal [...] documented as of this encounter Care Teams Time Study Observer Relationship Specialty Start Date End Date Olivia Pino ANP 230 [place] [address] PCP - General Family Medicine 05/15/22 Shaggy Huerta PharmD 230 [place] [address] Pharmacist Internal Medicine 08/31/24 Mónica Magallon Back Tender Insulation BoardMold Capper 04/26/24 documented as of this encounter
--- OUTSIDE RECORDS SUMMARY | 2024-12-29 11:47 | XMS_ITS | Encounter Summary ---
Author Organization [employer] Address 75 [facility] 7t [place] [address] Care Team Providers Care Ship Erector Name Role Phone Olivia Pnio Primary Care Provider [phone] Shaggy Huerta PharmD Unavailable [phone] Encounter Details Date Type Department Care Team (Latest Contact Info) Description 07/31/2021 Abstract [facility] CONVERSIONS Dental, Provider, DDS Social History Tobacco [...] EDT Telemedicine [facility] MEDICINE [address] [place] [address] Shaggy Huerta, PharmD 230 [place] [address] 01/12/2025 11:30 AM EDT Clinical Support [facility] MEDICINE [address] [place] [address] Digna Hicks RN 505 [place] [address] 02/15/2025 2:00 PM EDT Office Visit [facility] MEDICINE 230 [place] [address] Olivia Pino ANP 230 [place] [address] documented as of this encounter Visit Diagnoses Not on filedocumented in this encounter Care Teams Ship Erector Relationship Specialty Start Date End Date Olivia Pino ANP [address] [place] [address] PCP - General Family Medicine 05/15/22 Shaggy Huerta, Shena [address] [place] [address] [phone] Pharmacist Internal Medicine 08/31/24 Mónica Magallon Washer RepairmanTerminal Worker 04/26/24 documented as of this encounter
--- OUTSIDE RECORDS SUMMARY | 2024-12-29 11:47 | XMS_ITS | Encounter Summary ---
Author Organization [employer] Address [address] [facility] [address] 7t [place] [address] Care Team Providers Care Head Of Business Development Name Role Phone Olivia Pino WILIAN Primary Care Provider [phone] Shaggy Huerta PharmD Unavailable [phone] Encounter Details Date Type Department Care Team ([facility] Contact Info) Description 12/28/2024 Orders Only GENERIC [...] Description 01/09/2025 1:30 PM EDT Telemedicine [address] [address] Shaggy Huerta, PharmD [address] [place] [address] 01/12/2025 11:30 AM EDT Clinical Support [address] [address] Digna Hicks, RN 505 [place] [address] 02/15/2025 2:00 PM EDT Office Visit [address] [address] Olivia Pino ANP [address] [place] [address] Pending Results Name Type Priority Associated Diagnoses Date /Time CRP, HIGH SENSITIVITY Lab Routine 06/2025 12:04 PM EDT Immunoglobulins, Quantitative, IgA, IgG, IgM Lab Routine 12/28/2024 12:04 PM EDT documented as of this encounter Goals Goal Patient Goal Type Associated Problems Recent Progress Patient-Stated? Author Record your blood pressure once per day Blood Pressure No Yuridia Brown Blood Pressure < 140/90 Blood Pressure 150/101(12/12 11:49 AM EDT) No HaileemyeshaYuridia wang Quit using tobacco (cigarettes, smokeless, etc) Tobacco Use No Nancy Coats PharmD Note: - Obtain patches from pharmacy - Determine strategies to avoid triggers - Determine coping mechanisms for cravings - Identify support persons (family, friends) -Determine quit day documented as of this encounter Procedures Procedure Name Priority Date/Time Associated Diagnosis Comments CRP, HIGH SENSITIVITY Routine 12/28/2024 12:04 PM EDT VITAMIN B12/FOLATE, SERUM PANEL Routine 12/28/2024 12:04 PM EDT CBC WITH AUTO DIFFERENTIAL Routine 12/28/2024 12:04 PM EDT IRON AND TOTAL IRON BINDING CAPACITY Routine 12/28/2024 12:04 PM EDT IMMUNOGLOBULINS, QUANTITATIVE, IGA, IGG, IGM Routine 12/28/2024 12:04 PM EDT LIPASE Routine 12/28/2024 12:04 PM EDT COMPREHENSIVE METABOLIC PANEL Routine 12/28/2024 12:04 PM EDT documented in this encounter Results * Vitamin B12 (Cobalamin) and Folate Panel, Serum (12/28/2024 12:04 PM EDT) Vitamin B12 208 200 - 900 pg/mL [facility] Comment:NORMAL 200-900 PG/ML INDETERMINATE 160-199 PG/ML DEFICIENT < 160 PG/ML Folate 9.5 > or = 4.0 ng/mL [facility] Comment:Reference Values:> o r = 4.0 ng/mL< 4.0 ng/mL suggests folate deficiency Methotrexate, aminopterin and folinic acid(leucovorin) are chemotherapeutic agents whose molecularstructures are similar to folate; therefore, the Architectfolate assay cannot be used for patients using these drugs. 12/28/2024 12:0 4 PM EDT 12/28/2024 12:04 PM EDT us Generic External Data Provider LAB BLOOD ORDERAB LES Final Result Performing Organization Address [facility]/ZIP Co de Phone Number [facility] [address] [place] [address] [phone] * Lipase (12/28/2024 12:04 PM EDT) Lipase 24 8 - 78 U/L [facility] 12/28/2024 12:0 4 PM EDT 12/28/2024 12:04 PM EDT Generic External Data Provider LAB BLOOD ORDERAB LES Final Result Performing Organization Address [facility] Co de Phone Number [facility] [address] [place] [address] [phone] * Iron And Total Iron Binding Capacity (12/28/2024 12:04 PM EDT) Iron 82 30 - 160 mcg/dL [facility] Total Iron Binding Capacity 267 228 - 428 mcg/dL [facility] Percent Iron Saturation 31 15 - 50 % [facility] Unsaturated Iron Binding 185 ug/dL [facility] 12/28/2024 12:0 4 PM EDT 12/28/2024 12:04 PM EDT Generic External Data Provider LAB BLOOD ORDERAB LES Final Result Performing Organization Address [facility]/ZIP Co de Phone Number [facility] [address] [place] [address] [phone] * (ABNORMAL) Comprehensive Metabolic Panel (12/28/2024 12:04 PM EDT) Sodium 142 135 - 145 mmol/L [facility] Potassium 4.1 3.3 - 5.1 mmol/L [facility] Chloride 106 96 - 108 mmol/L [facility] Carbon Dioxide 30(H) 22 - 29 mmol/L [facility] Anion Gap 10(L) 12 - 20 [facility] Urea Nitrogen (BUN) 8(L) 9 - 16 mg/dL [facility] Creatinine, Serum 0.67 0.5 - 1.4 mg/dL [facility] Estimated Glomerular Filt Rate >60 [facility] Comment:Chronic Kidney Disea se: Estimated GFR < 60 mL/min/[id number] Kidney Disease: Estimated GFR < 15 mL/min/1.73m2 Glucose 73 60 - 115 mg/dL [facility] Calcium 9.3 8.4 - 10.2 mg/dL [facility] Bilirubin, Total 0.7 0.0 - 1.0 mg/dL [facility] Aspartate Amino Transferase 15 5 - 31 U/L [facility] Alanine Aminotransferase 11 0 - 31 U/L [facility] Total Protein 6.8 6.5 - 8.0 g/dL [facility] Albumin Level 4.0 3.5 - 5.0 g/dL [facility] Alkaline Phosphatase 80 39 - 117 U/L [facility] 12/28/2024 12:0 4 PM EDT 12/28/2024 12:04 PM EDT us Generic External Data Provider LAB BLOOD ORDERAB LES Final Result [facility] [address] [place], [place] [phone] * CBC auto differential (12/28/2024 12:04 PM EDT) White Blood Count 6.5 4.8 - 10.8 X10*3/uL [facility] Red Blood Count 4.42 4.20 - 5.50 X10*6/uL [facility] Hemoglobin 12.4 12.0 - 16.0 g/dl [facility] Hematocrit 38.9 37.0 - 47.0 % [facility] Mean Corpuscular Volume 88.0 80.0 - 98.0 fL [facility] Mean Corpuscular Hemoglobin 28.1 27.0 - 33.0 pg [facility] Mean Corpuscular HGB Conc 31.9 31.0 - 35.0 g/dl [facility] Red Cell Distribution Width 14.1 11.0 - 16.0 % [facility] Platelet Count 239 160 - 400 X10*3/uL [facility] Mean Platelet Volume 10.0 9.4 - 12.3 fL [facility] Neutrophils Percent Auto 55.0 45 - 73 % [facility] Imm Gran Pct Auto 0.3 0.0 - 0.4 % [facility] Lymphocytes Percent Auto 34.1 20 - 40 % [facility] Monocytes Percent Auto 7.4 2 - 11 % [facility] Eosinophils Percent Auto 2.6 0 - 4 % [facility] Basophils Percent Auto 0.6 0 - 2 % [facility] NRBC Pct Auto 0.0 0.0 - 0.2 /100WBC [facility] Neutrophils Absolute Auto 3.6 2.0 - 8.3 x10*3/uL [facility] Imm Gran Abs Auto 0.02 0.00 - 0.03 X10*3/uL [facility] Lymphocytes Absolute Auto 2.2 1.2 - 4.9 X10*3/uL [facility] Monocytes Absolute Auto 0.5 0.1 - 1.2 X10*3/uL [facility] Eosinophils Absolute Auto 0.2 0.0 - 0.4 X10*3/uL [facility] Basophils Absolute Auto 0.0 0.0 - 0.2 X10*3/uL [facility] NRBC Abs Auto 0.000 0.0 - 0.012 X10*3/uL [facility] 12/28/2024 12:0 4 PM EDT 12/28/2024 12:04 PM EDT us Generic External Data Provider LAB BLOOD ORDERAB LES Final Result [facility] [address] [place] [address] [phone] documented in this encounter Visit Diagnoses Not on filedocumented in this encounter Additional Health Concerns Assessment Noted Time PHQ-9 Depression Total Score: 0 11/17/19 25 8:50 AM EST documented as of this encounter Care Teams Head Of Business Development Relationship Specialty Start Date End Date Olivia Pino ANP 230 [place] [address] PCP - General Family Medicine 05/15/22 Shaggy Huerta, Shena [address] [place] [address] Pharmacist Internal Medicine 08/31/24 Mónica Magallon Textile Science TechnicianPaint Factory Worker 04/26/24 documented as of this encounter
--- OUTSIDE RECORDS SUMMARY | 2024-12-29 11:47 | XMS_ITS | Encounter Summary ---
Author Organization [employer] Address 75 [facility] 7t [place] [address] Care Team Providers Care Synchronous Motor Assembler Name Role Phone Olivia Pino Primary Care Provider [phone] Shaggy Huerta PharmD Unavailable [phone] Reason for Visit * Reason Comments Med Refill Encounter Details Date Type Department Care Team ([facility] Contact Info) Description 06/21/2023 Refill [facility] MEDICINE [address] [place] [address] [phone] Olivia Pino ANP [address] [place], [place] [phone] Pain Social History Tobacco Use Types Packs/Day [...] Upcoming Encounters Date Type Department Care Team ([facility] Contact Info) Description 01/09/2025 1:30 PM EDT Telemedicine [address] [address] Shaggy Huerta, PharmD [address] [place], [place] 01/12/2025 11:30 AM EDT Clinical Support [address] [address] Digna Hicks, RN 505 [place] [address] 02/15/2025 2:00 PM EDT Office Visit [address] [address] Olivia Pino ANP [address] [place] [address] documented as of this encounter Goals Goal [...] documented as of this encounter Care Teams Synchronous Motor Assembler Relationship Specialty Start Date End Date Olivia Pino ANP [address] [place] [address] PCP - General Family Medicine 05/15/22 Shaggy Huerta, PharmD [address] [place] [address] Pharmacist Internal Medicine 08/31/24 Mónica Magallon Insurance Verification RepresentativeField Services Manager 04/26/24 documented as of this encounter
--- OUTSIDE RECORDS SUMMARY | 2024-12-29 11:47 | XMS_ITS | Encounter Summary ---
Author Organization [employer] Address 75 [facility] 7t [place] [address] Care Team Providers Care Soil Analyst Name Role Phone Olivia Pino Primary Care Provider [phone] Shaggy Huerta PharmD Unavailable [phone] Reason for Visit * Reason Comments Med Refill Encounter Details Date Type Department Care Team ([facility] Contact Info) Description 03/26/2023 Refill [facility] MEDICINE [address] [place] [address] [phone] Olivia Pino ANP 230 [place], [place] [phone] Pain Social History Tobacco Use Types Packs/Day [...] Upcoming Encounters Date Type Department Care Team ([facility] Contact Info) Description 01/09/2025 1:30 PM EDT Telemedicine [address] [address] Shaggy Huerta, PharmD 230 [place], [place] 01/12/2025 11:30 AM EDT Clinical Support [address] [address] Digna iHcks, RN 505 [place] [address] 02/15/2025 2:00 PM EDT Office Visit [address] [address] Olivia Pino ANP [address] [place] [address] documented as of this encounter Goals Goal [...] documented as of this encounter Care Teams Soil Analyst Relationship Specialty Start Date End Date Olivia Pino ANP [address] [place] [address] PCP - General Family Medicine 05/15/22 Shaggy Huerta, PharmD [address] [place] [address] Pharmacist Internal Medicine 08/31/24 Mónica Magallon Satellite InstallerTelegraph Office Manager 04/26/24 documented as of this encounter
--- OUTSIDE RECORDS SUMMARY | 2024-12-29 11:47 | XMS_ITS | Encounter Summary ---
Author Organization [employer] Address [address] [facility] [address] 7t [place] [address] Care Team Providers Care Whipped Topping Mixer Name Role Phone Olivia Pino Primary Care Provider [phone] Shaggy Huerta PharmD Unavailable [phone] Reason for Visit * Reason Onset Date Comments Med Refill 09/14/2023 Encounter Details Date Type Department Care Team ([facility] Contact Info) Description 09/14/2023 Telephone [facility] MEDICINE 230 [place], [place] [phone] Olivia Pino ANP 230 [place], [place] [phone] Med Refill Social History Tobacco Use Types [...] refill : cholecalciferol (Vitamin D-3) 1.25 MG (54035 UT) capsule documented in this encounter Plan of Treatment Upcoming Encounters Date Type Department Care Team (Late st Contact Info) Description 01/09/2025 1:30 PM EDT Telemedicine [facility] MEDICINE [address] [place] [address] Shaggy Huerta, PharmD [address] [place] [address] 01/12/2025 11:30 AM EDT Clinical Support [facility] MEDICINE [address] [place] [address] Digna Hicks, STEPHANIE 505 [place] [address] 02/15/2025 2:00 PM EDT Office Visit [facility] MEDICINE 230 [place] [address] Olivia Pino ANP 230 [place] [address] documented as of this encounter Goals Goal [...] documented as of this encounter Care Teams Whipped Topping Mixer Relationship Specialty Start Date End Date Olivia Pino ANP 230 [place] [address] PCP - General Family Medicine 05/15/22 Shaggy Huerta, Shena 230 [place] [address] Pharmacist Internal Medicine 08/31/24 Mónica Magallon Laminating Machine Operator HelperInhalation Therapy Aide 04/26/24 documented as of this encounter
--- OUTSIDE RECORDS SUMMARY | 2024-12-29 11:47 | XMS_ITS | Encounter Summary ---
Author Organization [id number] Address [address] [facility] [address] 7t [place] [address] Care Team Providers Care Braille Typist Name Role Phone Olivia Pino Primary Care Provider [phone] Shaggy Huerta PharmD Unavailable [phone] Reason for Visit * Reason Comments Med Refill Encounter Details Date Type Department Care Team ([facility] st Contact Info) Description 04/28/2024 Refill [facility] MEDICINE 230 [place], [place] [phone] Olivia Pino ANP 230 [place], [place] [phone] Class 3 severe obesity with serious comorbidity [...] the past 12 months, has t he [employer], gas, oil or water company threatened to [...] Info) Description 01/09/2025 1:30 PM EDT Telemedicine [facility] MEDICINE [address] [place] [address] Shaggy Huerta, YuriD [address] [place] [address] 01/12/2025 11:30 AM EDT Clinical Support [address] [address] Digna Hicks, STEPHANIE 505 [place] [address] 02/15/2025 2:00 PM EDT Office Visit [facility] MEDICINE [address] [place] [address] Olivia Pino ANP [address] [place] [address] documented as of this encounter Goals Goal [...] documented as of this encounter Care Teams Braille Typist Relationship Specialty Start Date End Date Olivia Pino ANP 230 [place] [address] PCP - General Family Medicine 05/15/22 Shaggy Huerta, YuriD 230 [place] [address] Pharmacist Internal Medicine 08/31/24 Mónica Magallon Foreign AgentCertified Technician Specialist 04/26/24 documented as of this encounter
--- OUTSIDE RECORDS SUMMARY | 2024-12-29 11:47 | XMS_ITS | Encounter Summary ---
Author Organization [employer] Address 75 [facility] 7t [place] [address] Care Team Providers Care It Operations Manager Name Role Phone Olivia Pino Primary Care Provider [phone] Shaggy Huerta PharmD Unavailable [phone] Reason for Visit * Reason Comments Med Refill Encounter Details Date Type Department Care Team ([facility] Contact Info) Description 06/17/2023 Refill [facility] MEDICINE [address] [place] [address] [phone] Olivia Pino ANP 230 [place], [place] [phone] Pain Social History Tobacco Use Types Packs/Day [...] Date Type Department Care Team ([facility] Contact Info) Description 01/09/2025 1:30 PM EDT Telemedicine [address] [address] Shaggy Huerta, PharmD 230 [place], [place] 01/12/2025 11:30 AM EDT Clinical Support [address] [address] Digna Hicks, RN 505 [place] [address] 02/15/2025 2:00 PM EDT Office Visit [address] [address] Olivia Pino ANP [address] [place] [address] documented as of this encounter Goals Goal [...] as of this encounter Care Teams It Operations Manager Relationship Specialty Start Date End Date Olivia Pino ANP [address] [place] [address] PCP - General Family Medicine 05/15/22 Shaggy Huerta, PharmD [address] [place] [address] Pharmacist Internal Medicine 08/31/24 Mónica Magallon Jewelry RackerRelief Pilot 04/26/24 documented as of this encounter
--- OUTSIDE RECORDS SUMMARY | 2024-12-29 11:47 | XMS_ITS | Encounter Summary ---
Author Organization [employer] Address 75 [facility] 7t [place] [address] Care Team Providers Care Business Solutions Analyst Name Role Phone Olivia Pino Primary Care Provider [phone] Shaggy Huerta PharmD Unavailable [phone] Reason for Visit * Reason Comments Med Refill Encounter Details Date Type Department Care Team ([facility] st Contact Info) Description 12/06/2024 Refill [facility] MEDICINE [address] [place], [place] [phone] Olivia Pino ANP 230 [place], [place] [phone] Class 3 severe obesity with serious comorbidity [...] Description 01/09/2025 1:30 PM EDT Telemedicine [address] [address] Shaggy Huerta, PharmD [address] [place] [address] 01/12/2025 11:30 AM EDT Clinical Support [address] [address] Digna Hicks RN 505 [place] [address] 02/15/2025 2:00 PM EDT Office Visit [address] [address] Olivia Pino, ANP [address] [place] [address] documented as of this encounter Goals Goal [...] documented as of this encounter Care Teams Business Solutions Analyst Relationship Specialty Start Date End Date Olivia Pino ANP 230 [place] [address] PCP - General Family Medicine 05/15/22 Shaggy Huerta, YuriD 230 [place] [address] Pharmacist Internal Medicine 08/31/24 Mónica Magallon Senior Analyst Market IntelligenceRasper Machine Operator 04/26/24 documented as of this encounter
--- OUTSIDE RECORDS SUMMARY | 2024-12-29 11:47 | XMS_ITS | Encounter Summary ---
Author Organization [facility] [employer] Address 75 [facility] 7t [place] [address] Care Team Providers Care Jewelry Internship Name Role Phone Olivia Pino Primary Care Provider [phone] Shaggy Huerta PharmD Unavailable [phone] Reason for Visit * Reason Comments Med Refill Encounter Details Date Type Department Care Team ([facility] st Contact Info) Description 04/26/2024 Refill [facility] MEDICINE 230 [place], [place] [phone] Olivia Pino ANP 230 [place], [place] [phone] Class 3 severe obesity with serious comorbidity [...] Info) Description 01/09/2025 1:30 PM EDT Telemedicine [facility] MEDICINE [address] [place] [place] [address] Shaggy Huerta, PharmD [address] [place] [address] 01/12/2025 11:30 AM EDT Clinical Support [address] [address] Digna Hicks, STEPHANIE 505 [place] [address] 02/15/2025 2:00 PM EDT Office Visit [facility] MEDICINE [address] [place] [place] [address] Olivia Pino, ANP [address] [place] [address] documented as of this encounter Goals Goal [...] documented as of this encounter Care Teams Jewelry Internship Relationship Specialty Start Date End Date Olivia Pino ANP 230 [place] [address] PCP - General Family Medicine 05/15/22 Shaggy Huerta, Shena [address] [place] [address] Pharmacist Internal Medicine 08/31/24 Mónica Magallon Substation ManagerCar Servicer 04/26/24 documented as of this encounter
--- OUTSIDE RECORDS SUMMARY | 2024-12-29 11:47 | XMS_ITS | Encounter Summary ---
Author Organization [employer] Address [address] [facility] [address] 7t [place] [address] Care Team Providers Care Fast Food Server Name Role Phone Olivia Pino Primary Care Provider [phone] Shaggy Huerta PharmD Unavailable [phone] Reason for Visit * Reason Onset Date Comments Transportation 05/19/2024 Encounter Details Date Type Department Care Team ([facility] Contact Info) Description 05/19/2024 Telephone [facility] MEDICINE 230 [place], [place] [phone] Olivia Pino ANP 230 [place], [place] [phone] Transportation Social History Tobacco Use Types Packs/Day [...] 01/09/2025 1:30 PM EDT Telemedicine [facility] MEDICINE [address] [place] [address] Shaggy Huerta, PharmD [address] [place] [address] 01/12/2025 11:30 AM EDT Clinical Support [facility] MEDICINE [address] [place] [address] Digna Hicks, RN 505 [place] [address] 02/15/2025 2:00 PM EDT Office Visit [facility] MEDICINE [address] [place] [address] Olivia Pino, ANP [address] [place] [address] documented as of this encounter Goals Goal [...] documented as of this encounter Care Teams Fast Food Server Relationship Specialty Start Date End Date Olivia Pino ANP [address] [place] [address] PCP - General Family Medicine 05/15/22 Shaggy Huerta, Shena [address] [place] [address] Pharmacist Internal Medicine 08/31/24 Mónica Magallon Parts Product AnalystPolysomnography Technologist 04/26/24 documented as of this encounter
--- OUTSIDE RECORDS SUMMARY | 2024-12-29 11:47 | XMS_ITS | Encounter Summary ---
Author Organization [employer] Address [address] [facility] [address]t [place] [address] Care Team Providers Care Glove Maker Name Role Phone Olivia Pino Primary Care Provider Shaggy Huerta PharmD Unavailable [phone] Reason for Visit * Reason Onset Date Comments Appointment Request 12/01/2024 Encounter Details Date Type Department Care Team ([facility] Contact Info) Description 12/01/2024 Telephone [facility] [address] [place], [place] [phone] Olivia Pino ANP 230 [place], [place] [phone] Appointment Request Social History Tobacco Use Types [...] the past 12 months, has t he [employer], gas, oil or water company threatened to [...] R/s Apt from 11/24/24. Contact pt at [phone] documented in this encounter Plan of Treatment Upcoming Encounters Date Type Department Care Team (Late st Contact Info) Description 01/09/2025 1:30 PM EDT Telemedicine [facility] [address] [place] [address] Shaggy Huerta, YuriD [address] [place] [address] 01/12/2025 11:30 AM EDT Clinical Support [facility] [address] [place] [address] Digna Hicks, RN [address] [place] [address] 02/15/2025 2:00 PM EDT Office Visit [facility] [address] [place] [address] Olivia Pino ANP [address] [place] [address] documented as of this encounter Goals Goal [...] documented as of this encounter Care Teams Glove Maker Relationship Specialty Start Date End Date Olivia Pino ANP 230 [place] [address] PCP - General Family Medicine 05/15/22 Shaggy Huerta, YuriD 230 [place] [address] Pharmacist Internal Medicine 08/31/24 Mónica Magallon Transitional Studies InstructorFrame Welder Cargo Utility Trailers 04/26/24 documented as of this encounter
--- OUTSIDE RECORDS SUMMARY | 2024-12-29 11:47 | XMS_ITS | Encounter Summary ---
Author Organization [employer] Address [address] [facility] [address] 7t [place] [address] Care Team Providers Care Vice President Global Digital Marketing Name Role Phone Olivia Pino Primary Care Provider [phone] Shaggy Huerta PharmD Unavailable [phone] Reason for Visit * Reason Onset Date Comments Med Refill 07/10/2024 Encounter Details Date Type Department Care Team (Late st Contact Info) Description 07/10/2024 Refill [facility] 230 [place], [place] [phone] Olivia Pino ANP 230 [place], [place] [phone] Class 3 severe obesity with serious comorbidity [...] Info) Description 01/09/2025 1:30 PM EDT Telemedicine [facility] [address] [place] [address] Shaggy Huerta, PharmD [address] [place] [address] 01/12/2025 11:30 AM EDT Clinical Support [address] [address] Digna Hicks, STEPHANIE [address] [place] [address] 02/15/2025 2:00 PM EDT Office Visit [facility] [address] [place] [address] Olivia Pino, WILIAN [address] [place] [address] documented as of this encounter Goals Goal [...] documented as of this encounter Care Teams Vice President Global Digital Marketing Relationship Specialty Start Date End Date Olivia Pino ANP [address] [place] [address] PCP - General Family Medicine 05/15/22 Shaggy Huerta, Shena 230 [place] [address] Pharmacist Internal Medicine 08/31/24 Mónica Magallon Greenskeeper HeadLoader Helper Sorting Yard 04/26/24 documented as of this encounter
--- OUTSIDE RECORDS SUMMARY | 2024-12-29 11:47 | XMS_ITS | Encounter Summary ---
Author Organization [employer] Address [address] [facility] [address] 7t [place] [address] Care Team Providers Care Waiter/Waitress Dining Car Name Role Phone Olivia Pino WILIAN Primary Care Provider [phone] Shaggy Huerta PharmD Unavailable [phone] Reason for Visit * Reason Comments Med Refill Encounter Details Date Type Department Care Team ([facility] st Contact Info) Description 12/06/2023 Refill [facility] 230 [place], [place] [phone] Ashley Ramirez MD 230 [place], [place] [phone] Pain Social History Tobacco Use Types Packs/Day [...] Info) Description 01/09/2025 1:30 PM EDT Telemedicine [address] [address] Shaggy Huerta, YuriD [address] [place] [address] 01/12/2025 11:30 AM EDT Clinical Support [address] [address] Digna Hicks, RN 505 [place] [address] 02/15/2025 2:00 PM EDT Office Visit [address] [address] Olivia Pino ANP [address] [place] [address] documented as of this encounter Goals Goal [...] documented as of this encounter Care Teams Waiter/Waitress Dining Car Relationship Specialty Start Date End Date Olivia Pino ANP 230 [place] [address] PCP - General Family Medicine 05/15/22 Shaggy Huerta PharmD 230 [place] [address] Pharmacist Internal Medicine 08/31/24 Mónica Magallon Supervisory ForesterNursing Service Administrator 04/26/24 documented as of this encounter
--- OUTSIDE RECORDS SUMMARY | 2024-12-29 11:48 | XMS_ITS | Encounter Summary ---
Author Organization [employer] Address [address] [facility] [address] 7t [place] [address] Care Team Providers Care Drain Tile Machine Operator Name Role Phone Olivia Pino Primary Care Provider Shaggy Huerta PharmD Unavailable [phone] Reason for Visit * Reason Comments Med Refill Encounter Details Date Type Department Care Team ([facility] st Contact Info) Description 10/28/2023 Refill [facility] 230 [place], [place] [phone] Olivia Pino ANP 230 [place], [place] [phone] Social History Tobacco Use Types Packs/Day Years [...] Info) Description 01/09/2025 1:30 PM EDT Telemedicine [address] [address] Shaggy Huerta, Shena [address] [place] [address] 01/12/2025 11:30 AM EDT Clinical Support [address] [address] Dgina Hicks, RN 505 [place] [address] 02/15/2025 2:00 PM EDT Office Visit [address] [address] Olivia Pino ANP [address] [place] [address] documented as of this encounter Goals Goal [...] documented as of this encounter Care Teams Drain Tile Machine Operator Relationship Specialty Start Date End Date Olivia Pino ANP 230 [place] [address] PCP - General Family Medicine 05/15/22 Shaggy Huerta PharmD 230 [place] [address] Pharmacist Internal Medicine 08/31/24 Mónica Magallon Linux Network AdministratorFashion Director 04/26/24 documented as of this encounter
[2025-01-04 17:39] LABS: Calprotectin, Fecal 17 mcg/g
== END 2024-12-28 22:01 | disposition home or self-care (01) ==
LOC: HO.LNP 22:00
PROVIDERS: Visit Provider Nurse Practitioner Family
DX: K59.00 Constipation, unspecified (principal); R10.13 Epigastric pain
CPT/HCPCS: 83993

== ENCOUNTER 2025-02-21 12:27 | Outpatient (REF) | payer MEDICAID, SELFPAY ==
--- OUTSIDE RECORDS SUMMARY | 2025-02-21 12:59 | XMS_ITS | Encounter Summary ---
Author Organization [employer] Address 75 [facility] 7t [place] [address] Care Team Providers Care Scrummaster Name Role Phone Olivia Pino Primary Care Provider [phone] Shaggy Huerta PharmD Unavailable [phone] Reason for Visit * Reason Onset Date Comments PA 06/28/2024 Encounter Details Date Type Department Care Team ([facility] st Contact Info) Description 06/28/2024 Telephone [facility] 230 [place], [place] [phone] Olivia Pino ANP 230 [place], [place] [phone] [place] Social History Tobacco Use Types Packs/Day [...] Care Team (Late st Contact Info) Description 03/30/2025 10:00 AM EDT Clinical Support [facility] [address] [place] [address] Digna Hicks, STEPHANIE 505 [place] [address] 04/20/2025 1:00 PM EDT Medication Management [facility] [address] [place] [address] Shaggy Huerta, PharmD 230 [place] [address] documented as of this encounter Goals Goal Patient Goal Type Associated Problems Recent Progress Patient-Stated? Author Record your blood pressure once per day Blood Pressure No Yuridia Brown Blood Pressure < 140/90 Blood Pressure 130/90(2024 1:59 PM EDT) No Yuridia Brown Quit using tobacco [...] documented as of this encounter Care Teams Scrummaster Relationship Specialty Start Date End Date Olivia Pino ANP 230 [place] [address] PCP - General Family Medicine 05/15/22 Shaggy Huerta, YuriD 230 [place] [address] Pharmacist Internal Medicine 08/31/24 Mónica Magallon Environmental Protection SpecialistHome School Coordinator 04/26/24 documented as of this encounter
== END 2025-02-21 12:28 | disposition home or self-care (01) ==
LOC: HO.CT 12:27
PROVIDERS: PCP Nurse Practitioner Primary Care; Visit Provider Nurse Practitioner Family
DX: Z13.89 Encounter for screening for other disorder (principal)

== ENCOUNTER 2025-03-06 08:27 | Outpatient (REF) | payer MEDICAID, SELFPAY ==
--- NOTE | ~2025-03-06 | CT_ITS ---
CLINICAL HISTORY: R10.13 - Epigastric pain Exam: CT abdomen and pelvis without IV contrast Comparison: None Findings: The lack of intravenous contrast hampers the evaluation of solid organs and the ability to detect and characterize soft tissue abnormalities. Unremarkable lung bases. Mild cardiomegaly noted. Liver, gallbladder, spleen, pancreas, adrenal glands, kidneys, ureters, bladder, reproductive organs are unremarkable. A few diverticula of the colon in the left lower quadrant, negative for acute diverticulitis, stomach, small and large bowel, appendix are unremarkable. Unremarkable vasculature. No adenopathy. No ascites or pneumoperitoneum. Unremarkable abdominopelvic wall. Degenerative changes of the lumbar spine. Post ORIF changes of the left proximal femur, no acute hardware complication. Impression: 1. No acute finding. No CT finding to account for epigastric pain. 2. Mild diverticulosis coli in the left lower quadrant. This document has been electronically signed by: Kaylie Hernandez MD on 03/06/2025 15:39:59
--- OUTSIDE RECORDS SUMMARY | 2025-03-06 08:42 | XMS_ITS | Encounter Summary ---
Author Organization [employer] Address 75 [facility] 7t [place] [address] Care Team Providers Care Guide Plant Name Role Phone Olivia iPno Primary Care Provider [phone] Shaggy Huerta PharmD Unavailable [phone] Reason for Visit * Reason Onset Date Comments PA 06/28/2024 Encounter Details Date Type Department Care Team ([facility] st Contact Info) Description 06/28/2024 Telephone [facility] 230 [place], [place] [phone] Olivia Pino ANP 230 [place], [place] [phone] [place] Social History Tobacco Use Types Packs/Day [...] Upcoming Encounters Date Type Department Care Team ([facility] st Contact Info) Description 03/30/2025 10:00 AM EDT Clinical Support [facility] [address] [place] [address] Digna Hicks, STEPHANIE 505 [place] [address] 04/20/2025 1:00 PM EDT Medication Management [facility] [address] [place] [address] Shaggy Huerta, YuriD [address] [place] [address] 05/22/2025 9:45 AM EDT Office Visit [facility] [address] [place] [address] Olivia Pino ANP 230 [place] [address] documented as of this encounter Goals Goal [...] documented as of this encounter Care Teams Guide Plant Relationship Specialty Start Date End Date Olivia Pino ANP [address] [place] [address] PCP - General Family Medicine 05/15/22 Shaggy Huerta, Shena [address] [place] [address] Pharmacist Internal Medicine 08/31/24 Mónica Magallon Qc Lab TechnicianClosing Specialist 04/26/24 documented as of this encounter
[2025-03-06] MEDS: Barium Sulfate Oral (Vanilla) 450 ML ORAL.SUSP 900 ML PO (10:24)
[2025-03-06] MEDS: iohexoL 350 MG/ML 100 ML INFUS..BTL 85 ML IV (10:25)
== END 2025-03-06 08:28 | disposition home or self-care (01) ==
LOC: HO.CT 08:27
PROVIDERS: PCP Nurse Practitioner Primary Care; Visit Provider Nurse Practitioner Family
DX: R10.13 Epigastric pain (principal)
CPT/HCPCS: 74177; Q9967

== ENCOUNTER → 2025-03-06 08:29 | Outpatient (BNV) | payer MEDICAID, SELFPAY | PROVIDERS: PCP Nurse Practitioner Primary Care; Visit Provider Radiology Diagnostic Radiology | DX: K57.30 Diverticulosis of large intestine without perforation or abscess without bleeding (principal) | CPT/HCPCS: 74177 ==

== ENCOUNTER 2025-04-10 08:32 | Outpatient (REF) | payer MEDICAID, SELFPAY ==
--- NOTE | ~2025-04-10 | FL_ITS ---
EXAMINATION: XR FLUOROSCOPY BARIUM SWALLOW CLINICAL INFORMATION: Epigastric pain, reflux type symptoms. COMPARISON: No prior. Correlation made with CT abdomen and pelvis 03/06/2025. TECHNIQUE: Fluoroscopic air contrast barium swallow examination was performed utilizing standard techniques with thin and thick barium and effervescent granules. Numerous spot images were obtained. Several fluoroscopic image hold cine sequences were also obtained. FINDINGS: ESOPHAGRAM: Lateral cine images of the oropharynx and hypopharynx demonstrate normal swallow mechanism with normal epiglottic inversion and soft palate elevation. No laryngeal penetration, glottic or subglottic aspiration identified. No nasopharyngeal reflux present. Hypopharyngeal structures appear normal without evidence of mass or diverticulum. There was no significant cricopharyngeal achalasia. Dual and single contrast images of the esophagus demonstrate normal caliber, contour, and mucosal pattern. No evidence of stricture, mass, or ulcerations identified. Esophageal peristalsis was mildly disordered. No evidence of hiatus hernia identified. Mild gastroesophageal reflux was noted during the examination to the level of the aortic arch. Dual contrast and single contrast images of the stomach demonstrated normal contour without evidence of mass or gross ulceration. Normal rugal fold pattern. There was diffuse prominence/thickening of the area gastricae, suggestive of gastritis. Contrast freely passed into the gastric antrum and duodenal bulb without delay. Single and air-contrast images of the duodenal bulb demonstrate no abnormality. FLUOROSCOPY TIME: 2 minutes, 45 seconds Number of Spot Images:7 Number of cines obtained: 9 DOSE AREA PRODUCT: [id number] uGy-m2 (microgray-meter squared) FL/FL barium swallow with air IMPRESSION: 1. Mildly disordered esophageal peristalsis. 2. Mild episodic gastroesophageal reflux to the level of the aortic arch. 3. No evidence of hiatus hernia. 4. Diffuse thickening/prominence of the areae gastricae of the stomach, in keeping with gastritis. Electronically signed by: Prince Cortez MD 04/10/2025 10:31 AM EDT
--- OUTSIDE RECORDS SUMMARY | 2025-04-10 08:49 | XMS_ITS | Encounter Summary ---
Author Organization [employer] Address [address] [facility] 7t [place] [address] Care Team Providers Care Radioactivity Technician Name Role Phone Olivia Pino Primary Care Provider [phone] Shaggy Huerta PharmD Unavailable [phone] Reason for Visit * Reason Onset Date Comments PA 06/28/2024 Encounter Details Date Type Department Care Team ([facility] st Contact Info) Description 06/28/2024 Telephone [facility] 230 [place], [place] [phone] Olivia Pino ANP 230 [place], [place] [phone] [place] Social History Tobacco Use Types Packs/Day [...] Care Team (Late st Contact Info) Description 04/20/2025 1:00 PM EDT Medication Management [address] [address] Shaggy Huerta, PharmD [address] [place] [address] 05/22/2025 9:45 AM EDT Office Visit [address] [address] Olivia Pino ANP [address] [place] [address] 07/27/2025 10:00 AM EST Clinical Support [address] [address] Digna Hicks, STEPHANIE 505 [place] [address] documented as of this encounter Goals Goal [...] documented as of this encounter Care Teams Radioactivity Technician Relationship Specialty Start Date End Date Olivia Pino ANP 230 [place] [address] PCP - General Family Medicine 05/15/22 Shaggy Huerta, Shena [address] [place] [address] Pharmacist Internal Medicine 08/31/24 Mónica Magallon Sales Agent Marine InsuranceTile Designer 04/26/24 documented as of this encounter
== END 2025-04-10 08:33 | disposition home or self-care (01) ==
LOC: HO.XRAY 08:32
PROVIDERS: PCP Nurse Practitioner Primary Care; Visit Provider Nurse Practitioner Family
DX: R10.13 Epigastric pain (principal)
CPT/HCPCS: 74221

== ENCOUNTER → 2025-04-10 08:34 | Outpatient (BNV) | payer MEDICAID, SELFPAY | PROVIDERS: PCP Nurse Practitioner Primary Care; Visit Provider Radiology Diagnostic Radiology | DX: R10.13 Epigastric pain (principal) | CPT/HCPCS: 74221 ==

== ENCOUNTER 2025-05-22 10:56 | Outpatient (REF) | payer MEDICAID, SELFPAY ==
--- OUTSIDE RECORDS SUMMARY | 2025-05-22 09:45 | XMS_ITS | Encounter Summary ---
Author Organization [employer] Address [address] [facility] 7t [place] [address] Care Team Providers Care Director Of Student Life Name Role Phone Olivia Pino Primary Care Provider Shaggy Huerta PharmD Unavailable [phone] Reason for Visit * Reason Comments Follow-up Encounter Details Date Type Department Care Team ([facility] st Contact Info) Description 05/22/2025 9:45 AM EDT Office Visit [facility] [address] [place], [place] [phone] Olivia Pino ANP [address] [place], [place] [phone] Class 3 severe obesity with serious comorbidity and body mass index (BMI) of 40.0 to 44.9 in adult, unspecified obesity type (Primary Dx); Obstructive sleep apnea syndrome; Essential hypertension; Smoker; [facility] (current) use of opiate analgesic; Accident caused by hypodermic needle, initial encounter; Skin lesion Social History Tobacco Use Types Packs/Day Years [...] AM EDT documented as of this encounter Last Filed Vital Signs Vital Sign Reading Time Taken Comments Blood Pressure 130/90 05/22/2025 9:55 AM EDT Pulse 73 05/22/2025 9:55 AM EDT Temperature 36.7 C (98 F) 05/22/2025 9:55 AM EDT Respiratory Rate 20 05/22/2025 9:55 AM EDT Oxygen Saturation 99% 05/22/2025 9:55 AM EDT Inhaled Oxygen Concentration - - Weight 111 kg (245 lb) 05/22/2025 9:55 AM EDT Height 165.1 cm (5' 5 ) 05/22/2025 9:55 AM EDT Body Mass Index 40.77 05/22/2025 9:55 AM EDT documented in this encounter Patient Instructions * Patient Instructions* WILIAN De Leon - 05/22/2025 9:45 AM EDT Images from the original note were not included. Labs today and again on or after 06/22/2025 Please call sleep medicine to reschedule your appointment. La presi n arterial ideal ser a < 130/80. Para butler presi n arterial, se recomienda llevar miryam dieta baja en ryne, hacer ejercicio con regularidad, yu butler presi??n arterial en casa y yu los medicamentos seg??n lo recetado. Si fuma, disminuya o deje de fumar. Llame a la cl chio si la presi n arterial es frecuentemente >150/90. Vaya a urgencias/llame al 911 si > 170/100 y tiene s ntomas rakesh dolor de lyssa, cambios visuales, dolor en el pecho, estado mental alterado o dificultad para respirar. documented in this encounter Progress Notes * WILIAN De Leon - 05/22/2025 9:45 AM EDT SUBJECTIVE: Lanette Wylie is a 54 y.o. year old female who presents for follow up. Denies recent illness, injury, or hospitalization. PMH HTN, ADHD, HLD, MAGALIS, anxiety, depression, chronic pain, smoking Acute Concerns: Had needle stick w/ mom who is HIV+. This happened last week, 7d ago. Did not seek care for PEP. Mom takes HIV meds daily. Has MAGALIS, HTN. Uses CPAP but did not get to have appt w/ sleep medicine b/c they told her they wouldcharge her $50 or requested her [employer] acct info. She will call to reschedule. Wt as below. Weight loss has plateau'd. Here today for follow-up/weight check. Tolerating zepbound (tirzepatide) well, denies side effects. BMI Readings from Last 5 Encounters: 05/22/25 40.77 kg/m?? 02/15/25 41.88 kg/m?? 11/17/24 42.43 kg/m?? 08/31/24 43.02 kg/m?? 08/08/24 43.74 kg/m?? Wt Readings from Last 8 Encounters: 05/22/25 245 lb (111 kg) 02/15/25 244 lb (111 kg) 11/17/24 247 lb 3.2 oz (112 kg) 08/31/24 250 lb 9.6 oz (114 kg) 08/08/24 254 lb 12.8 oz (116 kg) 05/02/24 267 lb (121 kg) 01/28/24 278 lb 12.8 oz (126 kg) 01/18/24 277 lb 9.6 oz (126 kg) Wt 05/02/24 267lb, BMI 45.83 Previously had improvement in secondary outcomes including blood pressure with weight loss medication use. Has had improvement in daytime somnolence. Understands that weight loss medications must be used as part of a comprehensive lifestyle plan that incorporates daily exercise, adequate protein intake, decreased soda and sugary beverage consumption, decreased caloric intake. Smokin/2 PPD, cessation encouraged Will be seeing GI for colonoscopy later this year. Got EGD, see result in chart. Social History Social History Narrative Not on file Problem List[1] Surgical History[2] Family History[3] Review of Systems Constitutional: Negative for chills, fatigue and fever. HENT: Negative for sore throat. Respiratory: Negative for cough and shortness of breath. Cardiovascular: Negative for chest pain. Gastrointestinal: Negative for constipation and diarrhea. Endocrine: Negative for polydipsia, polyphagia and polyuria. Genitourinary: Negative for dysuria. Psychiatric/Behavioral: Negative for sleep disturbance. OBJECTIVE: Vitals: 05/22/25 0955 BP: (!) 130/90 BP Location: Left arm Patient Position: Sitting BP Cuff Size: Large adult Pulse: 73 Resp: 20 Temp: 98 ??F (36.7 ??C) TempSrc: Oral SpO2: 99% Weight: 245 lb (111 kg) Height: 5' 5 (1.651 m) Physical Exam Vitals reviewed. Constitutional: General: She is not in acute distress. Appearance: Normal appearance. She is not ill-appearing. HENT: Head: Normocephalic and atraumatic. Eyes: General: No scleral icterus. Extraocular Movements: Extraocular movements intact. Pupils: Pupils are equal, round, and reactive to light. Cardiovascular: Rate and Rhythm: Normal rate and regular rhythm. Pulmonary: Effort: Pulmonary effort is normal. No accessory muscle usage or respiratory distress. Musculoskeletal: Right lower leg: No edema. Left lower leg: No edema. Skin: General: Skin is warm and dry. Neurological: Mental Status: She is alert and oriented to person, place, and time. Psychiatric: Mood and Affect: Mood normal. Behavior: Behavior normal. Soft tissue mass on L side of head behind L ear approx 0.5cm in diam ASSESSMENT/PLAN Lanette was seen today for follow-up. Diagnoses and all orders for this visit: Class 3 severe obesity with serious comorbidity and body mass index (BMI) of 40.0 to 44.9 in adult,unspecified obesity type (Primary) Here today for follow-up/weight check. Tolerating zepbound (tirzepatide) well, denies side effects. BMI Readings from Last 3 Encounters: 05/22/25 40.77 kg/m?? 02/15/25 41.88 kg/m?? 11/17/24 42.43 kg/m?? Wt Readings from Last 3 Encounters: 05/22/25 245 lb (111 kg) 02/15/25 244 lb (111 kg) 11/17/24 247 lb 3.2 oz (112 kg) Wt loss has plateau'd. Recommend dose increase. Understands that weight loss medications must be used as part of a comprehensive lifestyle plan that incorporates daily exercise, adequate protein intake, decreased soda and sugary beverage consumption, decreased caloric intake. - Tirzepatide-Weight Management (Zepbound) 12.5 MG/0.5ML solution auto-injector; Inject 0.5 mL (12.5 mg) under the skin 1 (one) time per week. Obstructive sleep apnea syndrome Pt cont to benefit from and require CPAP/APAP/BiPAP therapy and would cont to benefit from wt loss. She will call sleep med to reschedule - Tirzepatide-Weight Management (Zepbound) 12.5 MG/0.5ML solution auto-injector; Inject 0.5 mL (12.5 mg) under the skin 1 (one) time per week. Essential hypertension At/near goal today, </= 130/80. Cont follow-up w/ CDTM. Continue to encourage low salt diet, regular exercise, home BP monitoring, compliance with medications. Call clinic if BP is frequently >150/90 Go to ED/call 911 if > 170/100 and having sx such as STUBBS, visual changes, chest pain, SOB Last renal function: Lab Results Component Value Date GLUCOSE 73 12/28/2024 NA 142 12/28/2024 K 4.1 12/28/2024 CO2 30 (H) 12/28/2024 CL 106 12/28/2024 BUN 8 (L) 12/28/2024 CREATININE 0.67 12/28/2024 EGFR >60 12/28/2024 No results found for: MICROALBCREA Lab Results Component Value Date MICROALBCREU 7.9 05/02/2024 Smoker Smoking cessation encouraged termite treater helper (current) use of opiate analgesic PRN tramadol for chronic back pain Uses appropriately, cont PUBLIC ADDRESS SYSTEM MECHANIC follow-up Accident caused by hypodermic needle, initial encounter Counseled extensively on PEP and when to seek care - within 72 hrs always. Mom takes ART per pt anddoing well so hopefully low risk exposure. Check HIV labs now and again in 1 mo. No s/s of acute HIV. - HIV-1/2 Antigen and Antibodies, Fourth Generation, with Reflexes; Future - HIV-1 RNA, Quantitative, Real-Time PCR; Future Skin lesion Comments: on scalp, L side, connie not changing per pt, will consider ref to gen surg at f/u for removal dt occasional discomfort. Did not refer today as pt has appts w/ GI and sleep med need to be prioritized. Follow Up: 3 mo. Sooner prn. Medications Ordered Prior to Encounter[4] Kazakh Translation: Patient is bilingual and declines translation services [1] Patient Active Problem List Diagnosis Constipation Dysmenorrhea Edema of lower extremity Essential hypertension Hypercholesterolemia Midline low back pain without sciatica Migraine Obesity Obstructive sleep apnea syndrome Urge incontinence of urine Smoker Vitamin D deficiency Chronic pain of right ankle Anxiety disorder Panic attacks Moderate episode of recurrent major depressive disorder (CMS/HCC) termite treater helper (current) use of opiate analgesic Varicose veins of both lower extremities with pain [2] History reviewed. No pertinent surgical history. [3] No family history on file. [4] Current Outpatient Medications on File Prior to Visit Medication Sig Dispense Refill Adderall XR 30 MG 24 hr capsule TAKE 1 CAPSULE BY MOUTH EVERY MORNING amLODIPine (Norvasc) 10 MG tablet TAKE 1 TABLET BY MOUTH EVERY DAY 90 tablet 2 atorvastatin (Lipitor) 40 MG tablet Take 1 tablet (40 mg) by mouth at bedtime. 90 tablet 3 clonazePAM (KlonoPIN) 1 MG tablet TAKE 1/2 TO 1 TABLET BY MOUTH TWICE DAILY NEEDED FOR ANXIETY Diclofenac Sodium (Voltaren) 1 % gel Apply up to 4x/d to affected joint(s) for pain/swelling 100 g 2 famotidine (Pepcid) 20 MG tablet TAKE 1 TABLET BY MOUTH EVERY DAY NEEDED (for stomach acid) furosemide (Lasix) 20 MG tablet TAKE 2 TABLETS BY MOUTH EVERY DAY IN THE MORNING 180 tablet 2 hydrOXYzine pamoate (Vistaril) 100 MG capsule TAKE 1 CAPSULE BY MOUTH TWICE DAILY NEEDED FOR ANXIETY loratadine (Claritin) 10 MG tablet TAKE 1 TABLET BY MOUTH EVERY DAY NEEDED 90 tablet 1 meloxicam (Mobic) 15 MG tablet Take 15 mg by mouth Once per day. metoprolol succinate XL (Toprol XL) 100 MG 24 hr tablet Take 1 & 1/2 tablets (150 mg) by mouth daily. Do not crush or chew. 135 tablet 1 mirtazapine (Remeron) 30 MG tablet TAKE 1 TABLET BY MOUTH AT BEDTIME for SLEEP AND MOOD naloxone (Narcan) 4 mg/0.1 mL nasal spray spray 0.1 milliliter by intranasal route once in 1 nostril may repeat dose every 2-3 minutes as needed alternating nostrils with each dose olmesartan (Benicar) 40 MG tablet Take 1 tablet (40 mg) by mouth Once per day. 90 tablet 1 oxybutynin XL (Ditropan-XL) 10 MG 24 hr tablet TAKE 2 TABLETS BY MOUTH ONCE DAILY DO NOT BREAK, CRUSH, DISSOLVE OR CHEW traMADol (Ultram) 50 MG tablet Take 1 tablet (50 mg) by mouth every 8 (eight) hours if needed for severe pain. TAKE 1 TABLET BY MOUTH EVERY 8 HOURS NEEDED FOR SEVERE PAIN FOR UP TO 14 DAYS 42 tablet 0 ziprasidone (Geodon) 20 MG capsule TAKE 1 CAPSULE TWICE DAILY IN THE MORNING AND AT BEDTIME - STOP Oxcabazepine zolpidem (Ambien) 5 MG tablet TAKE 1 TABLET BY MOUTH AT BEDTIME (10 pm) NEEDED for SLEEP [DISCONTINUED] Zepbound 10 MG/0.5ML solution auto-injector INJECT ONE PEN (=10MG) SUBCUTANEOUSLY ONCE A WEEK DIRECTED 2 mL 2 No current facility-administered medications on file prior to visit. documented in this encounter Plan of Treatment Upcoming Encounters Date Type Department Care Team (Late st Contact Info) Description 07/13/2025 1:00 PM EDT Telemedicine [address] [address] Shaggy Huerta, Shena [address] [place] [address] 07/27/2025 10:00 AM EST Clinical Support [address] [address] Digna Hicks, RN [address] [place] [address] Scheduled Orders Name Type Priority Associated Diagnoses Orde r Schedule HIV-1/2 Antigen and Antibodies, Fourth Generation, with Reflexes Lab Routine Accident caused by hypodermic needle, initial encounter Expected: 05/22/2025 (Approximate), Expires: 05/22/2026 HIV-1 RNA, Quantitative, Real-Time PCR Lab Routine Accident caused by hypodermic needle, initial encounter Expected: 05/22/2025 (Approximate), Expires: 05/22/2026 documented as of this encounter Goals Goal Patient Goal Type Associated Problems Recent Progress Patient-Stated? Author Record your blood pressure once per day Blood Pressure No Yuridia Brown Blood Pressure < 140/90 Blood Pressure 130/90(2024 9:55 AM EDT) No Yuridia Brown Quit using [...] 40.0 to 44.9 in adult, unspecified obesity type- Primary Obstructive sleep apnea syndrome Obstructive sleep apnea (adult) (pediatric) Essential hypertension Unspecified essential hypertension Smoker Tobacco use disorder [facility] (current) use of opiate analgesic Accident caused by hypodermic needle, initial encounter Skin lesion Unspecified disorder of skin and subcutaneous tissue documented in this encounter Additional Health Concerns Assessment Noted Time PHQ-9 Depression Total Score: 0 11/17/19 25 8:50 AM EST documented as of this encounter Care Teams Director Of Student Life Relationship Specialty Start Date End Date Olivia Pino ANP [address] [place] [address] PCP - General Family Medicine 05/15/22 Shaggy Huerta, Shena [address] [place] [address] Pharmacist Internal Medicine 08/31/24 Mónica Magallon Torque TesterCordwainer 04/26/24 documented as of this encounter
--- OUTSIDE RECORDS SUMMARY | 2025-05-22 12:32 | XMS_ITS | Encounter Summary ---
Author Organization [employer] Address [address] [facility] 7 [place] [address] Care Team Providers Care Lacrosse Player Name Role Phone Odette Olivia CEDENO Primary Care Provider [phone] Shaggy Huerta PharmD Unavailable [phone] Reason for Visit * Reason Comments Med Refill Encounter Details Date Type Department Care Team ([facility] st Contact Info) Description 04/12/2025 Refill [facility] [address] [place], [place] [phone] Rosalia Reich MD [address] [place], [place] [phone] marine oil terminal superintendent (current) use of opiate analgesic; Chronic pain of right ankle Social History Tobacco Use Types Packs/Day Years [...] the past 12 months, has t he [employer], gas, oil or water [employer] threatened to shut off services in your [...] Info) Description 07/13/2025 1:00 PM EDT Telemedicine [facility] [address] [place] [phone] Shaggy Huerta, PharmD [address] [place] [address] 07/27/2025 10:00 AM EST Clinical Support [facility] [address] [place] [address] Digna Hicks RN [address] [place] [address] documented as of this encounter Goals Goal Patient Goal Type Associated Problems Recent Progress Patient-Stated? Author Record your blood pressure once per day Blood Pressure Yuridia Kwan Blood Pressure < 140/90 Blood Pressure 130/90(2024 9:55 AM EDT) No Cardaropoli, Shi Quit using tobacco (cigarettes, smokeless, etc) Tobacco Use No Nancy Coats, YuriD Note: - Obtain patches from pharmacy - Determine strategies to avoid triggers - Determine coping mechanisms for cravings - Identify support persons (family, friends) -Determine quit day documented as of this encounter Visit Diagnoses Diagnosis marine oil terminal superintendent (current) use of opiate analgesic Chronic pain of right ankle documented in this encounter Additional Health Concerns Assessment Noted Time PHQ-9 Depression Total Score: 0 11/17/19 25 8:50 AM EST documented as of this encounter Care Teams Lacrosse Player Relationship Specialty Start Date End Date Olivia Pino, WILIAN [address] [place] [address] PCP - General Family Medicine 05/15/22 Shaggy Huerta, YuriD [address] [place] [address] Pharmacist Internal Medicine 08/31/24 Mónica Magallon Butter Fat TesterTimber Management Technician 04/26/24 documented as of this encounter
--- OUTSIDE RECORDS SUMMARY | 2025-05-22 12:32 | XMS_ITS | Encounter Summary ---
Author Organization [employer] Address 75 [facility] 7t [place] [address] Care Team Providers Care Medical Records Field Technician Name Role Phone Olivia Pino Primary Care Provider [phone] Shaggy Huerta PharmD Unavailable [phone] Encounter Details Date Type Department Care Team (Latest Contact Info) Description 07/31/2021 Abstract [facility] CONVERSIONS Dental, Provider, DDS Social History [...] Info) Description 07/13/2025 1:00 PM EDT Telemedicine [facility] MEDICINE [address] [place] [address] Shaggy Huerta, PharmD [address] [place] [address] 07/27/2025 10:00 AM EST Clinical Support [facility] [address] [place] [address] Digna Hicks RN [address] [place] [address] documented as of this encounter Visit Diagnoses Not on filedocumented in this encounter Care Teams Medical Records Field Technician Relationship Specialty Start Date End Date Olivia Pino ANP [address] [place] [address] PCP - General Family Medicine 05/15/22 Shaggy Huerta PharmD [address] [place] [address] Pharmacist Internal Medicine 08/31/24 Mónica Magallon Bell CaptainSupervisor Steel Division 04/26/24 documented as of this encounter
--- OUTSIDE RECORDS SUMMARY | 2025-05-22 12:32 | XMS_ITS | Encounter Summary ---
Author Organization [employer] Address 75 [facility] 7t [place] [address] Care Team Providers Care Air Conditioning Mechanic Industrial Name Role Phone Olivia Pino Primary Care Provider Shaggy Huerta PharmD Unavailable Reason for Visit * Reason Onset Date Comments PA 06/28/2024 Encounter Details Date Type Department Care Team ([facility] st Contact Info) Description 06/28/2024 Telephone [facility] MEDICINE 230 [place], [place] [phone] Olivia Pino ANP 230 [place], [place] [phone] PA Social History Tobacco Use Types Packs/Day [...] Upcoming Encounters Date Type Department Care Team ([facility] st Contact Info) Description 07/13/2025 1:00 PM EDT Telemedicine [facility] MEDICINE [address] [place] [phone] Shaggy Huerta, PharmD [address] [place] [address] 07/27/2025 10:00 AM EST Clinical Support [facility] MEDICINE [address] [place] [phone] Digna Hicks, RN [address] [place] [address] documented as of this encounter Goals Goal Patient Goal Type Associated Problems Recent Progress Patient-Stated? Author Record your blood pressure once per day Blood Pressure No Cardaropoli, Shi Blood Pressure < 140/90 Blood Pressure 130/90(2024 [...] documented as of this encounter Care Teams Air Conditioning Mechanic Industrial Relationship Specialty Start Date End Date Olivia Pino ANP [address] [place] [address] PCP - General Family Medicine 05/15/22 Shaggy Huerta, Shena [address] [place] [phone] Pharmacist Internal Medicine 08/31/24 Mónica Magallon Specimen TransporterSlide Maker 04/26/24 documented as of this encounter
--- OUTSIDE RECORDS SUMMARY | 2025-05-22 12:32 | XMS_ITS | Encounter Summary ---
Author Organization [employer] Address 75 [facility] 7t [place] [address] Care Team Providers Care Turbogenerator Operator Name Role Phone Olivia Pino Primary Care Provider [phone] Shaggy Huerta PharmD Unavailable [phone] Reason for Visit * Reason Onset Date Comments Med Refill 07/10/2024 Encounter Details Date Type Department Care Team (Late st Contact Info) Description 07/10/2024 Refill [facility] 230 [place], [place] [phone] Olivia Pino ANP 230 [place], [place] [phone] Class 3 severe obesity with serious comorbidity [...] Info) Description 07/13/2025 1:00 PM EDT Telemedicine [facility] [address] [place] [phone] Shaggy Huerta, YuriD [address] [place] [address] 07/27/2025 10:00 AM EST Clinical Support [facility] [address] [place] [phone] Digna Hicks, STEPHANIE [address] [place] [address] documented as of this encounter Goals Goal [...] to 49.9 in adult, unspecified obesity type documented in this encounter Additional Health Concerns Assessment Noted Time PHQ-9 Depression Total Score: 20 024 10:44 AM EDT documented as of this encounter Care Teams Turbogenerator Operator Relationship Specialty Start Date End Date Olivia Pino, ANP [address] [place] [address] PCP - General Family Medicine 05/15/22 Shaggy Huerta, Shena [address] [place] [address] Pharmacist Internal Medicine 08/31/24 Mónica Magallon Ui Ux EngineerDry Sander 04/26/24 documented as of this encounter
--- OUTSIDE RECORDS SUMMARY | 2025-05-22 12:33 | XMS_ITS | Encounter Summary ---
Author Organization [employer] Address [address] [facility] [address] 7t [place] [address] Care Team Providers Care Waste Specialist Name Role Phone Odette Olivia CEDENO Primary Care Provider [phone] Shaggy Huerta PharmD Unavailable [phone] Encounter Details Date Type Department Care Team (Latest Contact Info) Description 05/22/2025 Travel Social History Tobacco Use Types Packs/Day Years [...] Info) Description 07/13/2025 1:00 PM EDT Telemedicine [address] [address] Shaggy Huerta, Shena [address] [place] [phone] 07/27/2025 10:00 AM EST Clinical Support [address] [address] Digna Hicks, STEPHANIE [address] [place] [address] documented as of this encounter Goals Goal [...] documented as of this encounter Care Teams Waste Specialist Relationship Specialty Start Date End Date Olivia Pino ANP 230 [place] [address] PCP - General Family Medicine 05/15/22 Shaggy Huerta PharmD 230 [place] [address] Pharmacist Internal Medicine 08/31/24 Mónica Magallon Vamp Cut Out WorkerGlass Blowing Instructor 04/26/24 documented as of this encounter
--- OUTSIDE RECORDS SUMMARY | 2025-05-22 12:33 | XMS_ITS | Encounter Summary ---
Author Organization [employer] Address [address] [facility] 7t [place] [address] Care Team Providers Care Hand Scudder Name Role Phone Olivia Pino Primary Care Provider [phone] Shaggy Huerta PharmD Unavailable [phone] Reason for Visit * Reason Onset Date Comments Med Refill 01/24/2025 Encounter Details Date Type Department Care Team (Late st Contact Info) Description 01/24/2025 Refill [facility]INE 230 [place], [place] [phone] Olivia Pino ANP 230 [place], [place] [phone] Class 3 severe obesity with serious comorbidity and body mass index (BMI) of 40.0 to 44.9 in adult, unspecified obesity type Social History Tobacco Use Types Packs/Day Years [...] Info) Description 07/13/2025 1:00 PM EDT Telemedicine [address] [address] Shaggy Huerta, PharmD [address] [place] [address] 07/27/2025 10:00 AM EST Clinical Support [facility] MEDICINE [address] [place] [address] Digna Hicks RN 505 [place] [address] documented as of this encounter Goals Goal [...] to 44.9 in adult, unspecified obesity type documented in this encounter Additional Health Concerns Assessment Noted Time PHQ-9 Depression Total Score: 0 11/17/19 25 8:50 AM EST documented as of this encounter Care Teams Hand Scudder Relationship Specialty Start Date End Date Olivia Pino ANP [address] [place] [address] PCP - General Family Medicine 05/15/22 Shaggy Huerta, YuriD [address] [place] [address] Pharmacist Internal Medicine 08/31/24 Mónica Magallon Skate MakerTalent Development Specialist 04/26/24 documented as of this encounter
--- OUTSIDE RECORDS SUMMARY | 2025-05-22 12:33 | XMS_ITS | Encounter Summary ---
Author Organization [employer] Address 75 [facility] 7t [place] [address] Care Team Providers Care Manager International Name Role Phone Olivia Pino Primary Care Provider [phone] Shaggy Huerta PharmD Unavailable [phone] Reason for Visit * Reason Onset Date Comments Med Refill 02/06/2025 Encounter Details Date Type Department Care Team ([facility] st Contact Info) Description 02/06/2025 Refill [facility] MEDICINE 230 [place], [place] [phone] Olivia Pino ANP 230 [place], [place] [phone] Social History Tobacco Use Types Packs/Day Years [...] the past 12 months, has t he [employer], gas, oil or water [employer] threatened to shut off services in your [...] Info) Description 07/13/2025 1:00 PM EDT Telemedicine [address] [address] Shaggy Huerta, PharmD [address] [place] [address] 07/27/2025 10:00 AM EST Clinical Support [facility] MEDICINE [address] [place] [address] Digna Hicks, RN 505 [place] [address] documented as of this encounter Goals Goal [...] documented as of this encounter Care Teams Manager International Relationship Specialty Start Date End Date Olivia Pino, WILIAN 230 [place] [address] PCP - General Family Medicine 05/15/22 Shaggy Huerta, YuriD 230 [place] [address] Pharmacist Internal Medicine 08/31/24 Mónica Magallon Repairing CalibratorLegal Writing Professor 04/26/24 documented as of this encounter
--- OUTSIDE RECORDS SUMMARY | 2025-05-22 12:33 | XMS_ITS | Encounter Summary ---
Author Organization [employer] Address 75 [facility] 7 [place] [address] Care Team Providers Care Warehouse Stock Clerk Name Role Phone Odette Olivia CEDENO Primary Care Provider [phone] Shaggy Huerta PharmD Unavailable [phone] Reason for Visit * Reason Comments Med Refill Encounter Details Date Type Department Care Team ([facility] st Contact Info) Description 02/28/2024 Refill [facility] MEDICINE 230 [place], [place] [phone] Rosalia Reich MD 230 [place], [place] [phone] Pain Social History Tobacco Use Types Packs/Day [...] enough money to get more: Never True 10/ Transportation Answer Date Recorded In the past [...] Info) Description 07/13/2025 1:00 PM EDT Telemedicine [address] [address] Shaggy Huerta, Shena [address] [place] [address] 07/27/2025 10:00 AM EST Clinical Support [address] [address] Digna Hicks, RN 505 [place] [address] documented as of this encounter Goals Goal [...] documented as of this encounter Care Teams Warehouse Stock Clerk Relationship Specialty Start Date End Date Olivia Pino ANP 230 [place] [address] PCP - General Family Medicine 05/15/22 Shaggy Huerta PharmD 230 [place] [address] Pharmacist Internal Medicine 08/31/24 Mónica Magallon Party Plan Sales Unit AdvisorEarrings Fabricator 04/26/24 documented as of this encounter
--- OUTSIDE RECORDS SUMMARY | 2025-05-22 12:33 | XMS_ITS | Encounter Summary ---
Author Organization [employer] Address 75 [facility] 7t [place] [address] Care Team Providers Care Website Designer Name Role Phone Olivia Pino Primary Care Provider [phone] Shaggy Huerta PharmD Unavailable [phone] Reason for Visit * Reason Comments Med Refill Encounter Details Date Type Department Care Team (Late Contact Info) Description 06/17/2023 Refill [facility] MEDICINE [address] [place] [address] Olivia Pino ANP 230 [place], [place] [phone] Pain Social History Tobacco Use Types Packs/Day [...] Encounters Date Type Department Care Team (Late Contact Info) Description 07/13/2025 1:00 PM EDT Telemedicine [address] [address] Shaggy Huerta, PharmD 230 [place] [address] 07/27/2025 10:00 AM EST Clinical Support [facility] 230 [place] [address] Digna Hicks, STEPHANIE 505 [place] [address] documented as of this encounter Goals Goal [...] documented as of this encounter Care Teams Website Designer Relationship Specialty Start Date End Date Olivia Pino ANP [address] [place] [address] PCP - General Family Medicine 05/15/22 Shaggy Huerta, PharmD [address] [place] [address] Pharmacist Internal Medicine 08/31/24 Mónica Magallon Weft StraightenerClinical Practice Consultant 04/26/24 documented as of this encounter
--- OUTSIDE RECORDS SUMMARY | 2025-05-22 12:33 | XMS_ITS | Encounter Summary ---
Author Organization [employer] Address 75 [facility] 7t [place] [address] Care Team Providers Care Hog Feeder Name Role Phone Olivia Pino Primary Care Provider [phone] Shaggy Huerta PharmD Unavailable [phone] Reason for Visit * Reason Onset Date Comments Med Refill 01/01/2025 Encounter Details Date Type Department Care Team (Late st Contact Info) Description 01/01/2025 Refill [facility] MEDICINE 230 [place], [place] [phone] Olivia Pino ANP 230 [place], [place] [phone] Social History Tobacco Use Types Packs/Day Years [...] the past 12 months, has t he [employer], gas, oil or water [employer] threatened to shut off services in your [...] Info) Description 07/13/2025 1:00 PM EDT Telemedicine [address] [address] Shaggy Huerta, PharmD [address] [place] [address] 07/27/2025 10:00 AM EST Clinical Support [facility] MEDICINE [address] [place] [address] Digna Hicks, RN 505 [place] [address] documented as of this encounter Goals Goal [...] documented as of this encounter Care Teams Hog Feeder Relationship Specialty Start Date End Date Olivia Pino, WILIAN 230 [place] [address] PCP - General Family Medicine 05/15/22 Shaggy Huerta, YuriD 230 [place] [address] Pharmacist Internal Medicine 08/31/24 Mónica Magallon Cellophane Wrapping ExaminerManufacturers Service Representative 04/26/24 documented as of this encounter
--- OUTSIDE RECORDS SUMMARY | 2025-05-22 12:33 | XMS_ITS | Encounter Summary ---
Author Organization [employer] Address 75 [facility] 7t [place] [address] Care Team Providers Care Olive Packer Name Role Phone Odette Olivia CEDENO Primary Care Provider [phone] Shaggy Huerta PharmD Unavailable [phone] Reason for Visit * Reason Comments Med Refill Encounter Details Date Type Department Care Team ([facility] st Contact Info) Description 12/06/2023 Refill [facility] MEDICINE 230 [place], [place] [phone] Ashley Ramirez MD 230 [place], [place] [phone] Pain Social History Tobacco Use Types Packs/Day [...] Info) Description 07/13/2025 1:00 PM EDT Telemedicine [address] [address] Shaggy Huerta, YuriD [address] [place] [address] 07/27/2025 10:00 AM EST Clinical Support [address] [address] Digna Hicks, RN 505 [place] [address] documented as of this encounter Goals Goal [...] documented as of this encounter Care Teams Olive Packer Relationship Specialty Start Date End Date Olivia Pino ANP [address] [place] [address] PCP - General Family Medicine 05/15/22 Shaggy Huerta PharmD 230 [place] [address] Pharmacist Internal Medicine 08/31/24 Mónica Magallon Personnel TechnicianMill Recorder 04/26/24 documented as of this encounter
--- OUTSIDE RECORDS SUMMARY | 2025-05-22 12:33 | XMS_ITS | Encounter Summary ---
Author Organization [employer] Address 75 [facility] 7t [place] [address] Care Team Providers Care Gear Grinding Machine Operator Name Role Phone Olivia Pino Primary Care Provider [phone] Shaggy Huerta PharmD Unavailable [phone] Reason for Visit * Reason Comments Med Refill Encounter Details Date Type Department Care Team ([facility] st Contact Info) Description 10/28/2023 Refill [facility] MEDICINE 230 [place], [place] [phone] Olivia Pino ANP 230 [place], [place] [phone] Social History Tobacco Use Types Packs/Day Years [...] Info) Description 07/13/2025 1:00 PM EDT Telemedicine [address] [address] Shaggy Huerta, YuriD [address] [place] [address] 07/27/2025 10:00 AM EST Clinical Support [facility] MED[facility]INE [address] [place] [address] Digna Hicks RN 505 [place] [address] documented as of this encounter Goals Goal [...] documented as of this encounter Care Teams Gear Grinding Machine Operator Relationship Specialty Start Date End Date Olivia Pino ANP 230 [place] [address] PCP - General Family Medicine 05/15/22 Shaggy Huerta PharmD 230 [place] [address] Pharmacist Internal Medicine 08/31/24 Mónica Magallon Intellectual Property ManagerLifter 04/26/24 documented as of this encounter
--- OUTSIDE RECORDS SUMMARY | 2025-05-22 12:33 | XMS_ITS | Encounter Summary ---
Author Organization [employer] Address 75 [facility] 7t [place] [address] Care Team Providers Care Home Appraiser Name Role Phone Olivia Pino Primary Care Provider [phone] Shaggy Huerta PharmD Unavailable [phone] Reason for Visit * Reason Onset Date Comments Med Refill 03/27/2025 Encounter Details Date Type Department Care Team (Late st Contact Info) Description 03/27/2025 Refill [facility] MEDICINE 230 [place], [place] [phone] Olivia Pino ANP 230 [place], [place] [phone] local intermodal truck driver (current) use of opiate analgesic; Chronic pain [...] the past 12 months, has t he [employer], gas, oil or water [employer] threatened to shut off services in your [...] Info) Description 07/13/2025 1:00 PM EDT Telemedicine [facility] MEDICINE [address] [place] [address] Shaggy Huerta, PharmD 230 [place] [address] 07/27/2025 10:00 AM EST Clinical Support [facility] MEDICINE [address] [place] [address] Digna Hicks RN 505 [place] [address] documented as of this encounter Goals Goal [...] as of this encounter Visit Diagnoses Diagnosis correction (current) use of opiate analgesic Chronic pain of right ankle documented in this encounter Additional Health Concerns Assessment Noted Time PHQ-9 Depression Total Score: 0 11/17/19 25 8:50 AM EST documented as of this encounter Care Teams Home Appraiser Relationship Specialty Start Date End Date Olivia Pino ANP 230 [place] [address] PCP - General Family Medicine 05/15/22 Shaggy Huerta, YuriD 230 [place] [address] Pharmacist Internal Medicine 08/31/24 Mónica Magallon ShuttlerManager Application 04/26/24 documented as of this encounter
--- OUTSIDE RECORDS SUMMARY | 2025-05-22 12:33 | XMS_ITS | Encounter Summary ---
Author Organization [employer] Address 75 [facility] 7t [place] [address] Care Team Providers Care Buddhist Monk Name Role Phone Olivia Pino Primary Care Provider [phone] Shaggy Huerta PharmD Unavailable [phone] Reason for Visit * Reason Comments Med Refill Encounter Details Date Type Department Care Team ([facility] st Contact Info) Description 12/06/2024 Refill [facility] MEDICINE 230 [place], [place] [phone] Olivia Pino ANP 230 [place], [place] [phone] Class 3 severe obesity with serious comorbidity [...] Upcoming Encounters Date Type Department Care Team ([facility] st Contact Info) Description 07/13/2025 1:00 PM EDT Telemedicine [facility] MEDICINE [address] [place] [address] Shaggy Huerta, PharmD [address] [place] [address] 07/27/2025 10:00 AM EST Clinical Support [facility] MEDICINE [address] [place] [address] Digna Hicks, STEPHANIE 505 [place] [address] documented as of this encounter Goals Goal Patient Goal Type Associated Problems Recent Progress Patient-Stated? Author Record your blood pressure once per day Blood Pressure No Yuridia Brown Blood Pressure < 140/90 Blood Pressure 130/90(09/02/ 2025 9:55 AM EDT) No Yuridia Brown Quit [...] documented as of this encounter Care Teams Buddhist Monk Relationship Specialty Start Date End Date Olivia Pino ANP 230 [place] [address] PCP - General Family Medicine 05/15/22 Shaggy Huerta, Shena [address] [place] [address] Pharmacist Internal Medicine 08/31/24 Mónica Magallon Solid Surface FabricatorChief Human Resources Officer 04/26/24 documented as of this encounter
--- OUTSIDE RECORDS SUMMARY | 2025-05-22 12:33 | XMS_ITS | Encounter Summary ---
Author Organization [employer] Address 75 [facility] 7t [place] [address] Care Team Providers Care Steel Erector Apprentice Name Role Phone Olivia Pino Primary Care Provider [phone] Shaggy Huerta PharmD Unavailable [phone] Reason for Visit * Reason Onset Date Comments Transportation 05/19/2024 Encounter Details Date Type Department Care Team ([facility] Contact Info) Description 05/19/2024 Telephone [facility] MEDICINE 230 [place], [place] [phone] Olivia Pino ANP 230 [place], [place] [phone] Transportation Social History Tobacco Use Types Packs/Day [...] Info) Description 07/13/2025 1:00 PM EDT Telemedicine [facility] MEDICINE [address] [place] [address] Shaggy Huerta, PharmD 230 [place] [address] 07/27/2025 10:00 AM EST Clinical Support [facility] MEDICINE [address] [place] [address] Digna Hicks, STEPHANIE 505 [place] [address] documented as of this encounter Goals Goal [...] documented as of this encounter Care Teams Steel Erector Apprentice Relationship Specialty Start Date End Date Olivia Pino ANP 230 [place] [address] PCP - General Family Medicine 05/15/22 Shaggy Huerta, YuriD 230 [place] [address] Pharmacist Internal Medicine 08/31/24 Mónica Magallon Poke InMolder Sweep 04/26/24 documented as of this encounter
--- OUTSIDE RECORDS SUMMARY | 2025-05-22 12:33 | XMS_ITS | Encounter Summary ---
Author Organization [employer] Address 75 [facility] 7t [place] [address] Care Team Providers Care Hands Hanger Name Role Phone Olivia Pino Primary Care Provider [phone] Shaggy Huerta PharmD Unavailable [phone] Reason for Visit * Reason Comments Med Refill Encounter Details Date Type Department Care Team (Late Contact Info) Description 06/21/2023 Refill [facility] MEDICINE [address] [place] [address] Olivia Pino ANP 230 [place], [place] [phone] Pain Social History Tobacco Use Types Packs/Day [...] Info) Description 07/13/2025 1:00 PM EDT Telemedicine [address] [address] Shaggy Huerta, PharmD 230 [place] [address] 07/27/2025 10:00 AM EST Clinical Support [facility] 230 [place] [address] Digna Hicks, STEPHANIE 505 [place] [address] documented as of this encounter Goals Goal [...] documented as of this encounter Care Teams Hands Hanger Relationship Specialty Start Date End Date Olivia Pino ANP [address] [place] [address] PCP - General Family Medicine 05/15/22 Shaggy Huerta, PharmD [address] [place] [address] Pharmacist Internal Medicine 08/31/24 Mónica Magallon Superintendent PressureCertification Officer 04/26/24 documented as of this encounter
--- OUTSIDE RECORDS SUMMARY | 2025-05-22 12:33 | XMS_ITS | Encounter Summary ---
Author Organization [employer] Address 75 [facility] 7t [place] [address] Care Team Providers Care Plant Health Care Technician Name Role Phone Olivia Pino Primary Care Provider Shaggy Huerta PharmD Unavailable [phone] Reason for Visit * Reason Onset Date Comments Med Refill 09/14/2023 Encounter Details Date Type Department Care Team ([facility] st Contact Info) Description 09/14/[address] [facility] MEDICINE 230 [place], [place] [phone] Olivia Pino ANP 230 [place], [place] [phone] Med Refill Social History Tobacco Use Types [...] refill : cholecalciferol (Vitamin D-3) 1.25 MG (57399 UT) capsule documented in this encounter Plan of Treatment Upcoming Encounters Date Type Department Care Team (Late st Contact Info) Description 07/13/2025 1:00 PM EDT Telemedicine [facility] MEDICINE [address] [place] [address] Shaggy Huerta, PharmD 230 [place] [address] 07/27/2025 10:00 AM EST Clinical Support [facility] MEDICINE [address] [place] [address] Digna Hicks RN 505 [place] [address] documented as of this encounter Goals Goal [...] documented as of this encounter Care Teams Plant Health Care Technician Relationship Specialty Start Date End Date Olivia Pino ANP 230 [place] [address] PCP - General Family Medicine 05/15/22 Shaggy Huerta, Shena 230 [place] [address] Pharmacist Internal Medicine 08/31/24 Mónica Magallon Machine Carton MarkerBit Sharpener 04/26/24 documented as of this encounter
--- OUTSIDE RECORDS SUMMARY | 2025-05-22 12:33 | XMS_ITS | Encounter Summary ---
Author Organization [employer] Address 75 [facility] 7t [place] [address] Care Team Providers Care Soldering Technician Name Role Phone Olivia Pino Primary Care Provider [phone] Shaggy Huerta PharmD Unavailable [phone] Reason for Visit * Reason Comments Med Refill Encounter Details Date Type Department Care Team ([facility] st Contact Info) Description 03/16/2025 Refill [facility] 505 [place], [place] [phone] Olivia Pino ANP [facility] [place], [place] [phone] halfway (current) use of opiate analgesic; Chronic pain [...] the past 12 months, has t he [employer], gas, oil or water [employer] threatened to shut off services in your [...] Info) Description 07/13/2025 1:00 PM EDT Telemedicine [facility] MEDICINE [address] [place] [address] Shaggy Huerta, PharmD [address] [place] [address] 07/27/2025 10:00 AM EST Clinical Support [facility] MEDICINE [address] [place] [address] Digna Hicks RN 505 [place] [address] documented as of this encounter Goals Goal [...] as of this encounter Visit Diagnoses Diagnosis halfway (current) use of opiate analgesic Chronic pain of right ankle documented in this encounter Additional Health Concerns Assessment Noted Time PHQ-9 Depression Total Score: 0 11/17/19 25 8:50 AM EST documented as of this encounter Care Teams Soldering Technician Relationship Specialty Start Date End Date Olivia Pino, WILIAN 230 [place] [address] PCP - General Family Medicine 05/15/22 Shaggy Huerta, YuriD 230 [place] [address] Pharmacist Internal Medicine 08/31/24 Mónica Magallon Machine Feeder FloorpersonAmbulance Dispatcher 04/26/24 documented as of this encounter
--- OUTSIDE RECORDS SUMMARY | 2025-05-22 12:33 | XMS_ITS | Encounter Summary ---
Author Organization [employer] Address 75 [facility] 7t [place] [address] Care Team Providers Care Photographer Model Name Role Phone Olivia Pino Primary Care Provider [phone] Shaggy Huerta PharmD Unavailable [phone] Reason for Visit * Reason Comments Med Refill Encounter Details Date Type Department Care Team (Late st Contact Info) Description 04/28/2024 Refill [facility] MEDICINE 230 [place], [place] [phone] Olivia Pino ANP 230 [place], [place] [phone] Class 3 severe obesity with serious comorbidity [...] the past 12 months, has t he [employer], gas, oil or water [employer] threatened to shut off services in your [...] Info) Description 07/13/2025 1:00 PM EDT Telemedicine [facility] MEDICINE [address] [place] [address] Shaggy Huerta, Shena [address] [place] [address] 07/27/2025 10:00 AM EST Clinical Support [facility] MEDICINE [address] [place] [address] Digna Hicks RN 505 [place] [address] documented as of this encounter Goals Goal [...] documented as of this encounter Care Teams Photographer Model Relationship Specialty Start Date End Date Olivia Pino ANP 230 [place] [address] PCP - General Family Medicine 05/15/22 Shaggy Huerta PharmD 230 [place] [address] Pharmacist Internal Medicine 08/31/24 Mónica Magallon Phone EngineerPrinting Press Operator Apprentice 04/26/24 documented as of this encounter
--- OUTSIDE RECORDS SUMMARY | 2025-05-22 12:33 | XMS_ITS | Encounter Summary ---
Author Organization [employer] Address 75 [facility] 7t [place] [address] Care Team Providers Care Binitrotoluene Operator Name Role Phone Olivia Pino Primary Care Provider Shaggy Huerta PharmD Unavailable [phone] Reason for Visit * Reason Comments Med Refill Encounter Details Date Type Department Care Team ([facility] st Contact Info) Description 09/14/2023 Refill [facility] 505 [place], [place] [phone] Olivia Pino ANP 230 [place], [place] [phone] Pain Social History Tobacco Use Types Packs/Day [...] Description 07/13/2025 1:00 PM EDT Telemedicine [address] [address] Shaggy Huerta, Shena [address] [place] [address] 07/27/2025 10:00 AM EST Clinical Support [address] [address] Digna Hicks, RN 505 [place] [address] documented as of this encounter Goals Goal [...] documented as of this encounter Care Teams Binitrotoluene Operator Relationship Specialty Start Date End Date Olivia Pino ANP 230 [place] [address] PCP - General Family Medicine 05/15/22 Shaggy Huerta PharmD 230 [place] [address] Pharmacist Internal Medicine 08/31/24 Mónica Magallon Lozenge MakerPrint Shop Helper 04/26/24 documented as of this encounter
--- OUTSIDE RECORDS SUMMARY | 2025-05-22 12:33 | XMS_ITS | Clinical Summary ---
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 evidence of malignancy. ASSESSMENT: BI-RADS BI-RADS 2 - Benign Findings RECOMMENDATION: Routine annual mammography screening. 1 year F/U This examination should not preclude the clinical evaluation of a suspicious palpable abnormality. This patient's information was entered into a reminder system with a target due date for their next mammogram. Electronically signed by: Charissa Queen DO 01/05/2025 02:56 PM EDT RP Dictated By: Charissa Queen DO Signed By: <Electronically signed by Charissa Queen DO in OV> 01/05/25 1456 DD/ 1250 TD/TT: 12/28/24 1305 Sales Forecast Analyst: us Nasrin Burrell ANP IMG BI PROCEDURES Edited Result - Final * Lipid Panel, Standard (05/02/2024 10:49 AM EDT) Triglycerides 76 <150 mg/dL [facility] Comment:Desirable Triglyceri de: less than 150 mg/dLBorderline High Triglyceride 150-199 mg/dLHigh Triglyceride: 200-499 mg/dLVery High Triglyceride: greater than or equal to 5OO mg/dL Cholesterol 146 <200 mg/dL [facility] Comment:Desirable Cholestero l: less than 200 mg/dLBorderline High Cholesterol: 200-239 mg/dLHigh Cholesterol: greater than 239 mg/dL LDL Cholesterol Calculated 90 <100 mg/dL [facility] Comment:Desirable LDL: less than 100 mg/dLNear Optimal/Above Optimal LDL: 110- 129 mg/dLBorderline High LDL: 130-159 mg/dLHigh LDL: 160-189 mg/dLVery High LDL: greater than or equal to 190 mg/dL HDL Cholesterol 41 >40 mg/dL [facility] Comment:Desirable HDL: great er than 40 mg/dL Note: This HDL assay may give artificially low results in patients with liver disease. Blood Venous blood specimen / Unknown 05/02/2024 10:49 AM EDT 05/02/2024 11:33 AM EDT us Nasrin Burrell ANP LAB BLOOD ORDERABLES Final Resul t [facility] [address] [place] [address] [phone] * Thinprep PAP and HPV nRNA E6/E7 (10/24/2022 4:18 PM EST) Clinical Information: ANNUAL PAP [facility] [employer] [facility] LMP: NONE GIVEN [facility] Prev. PAP: NONE GIVEN [facility] Prev. BX: NO [facility] [facility] SOURCE: None given [facility] Statement Of Adequacy: [facility] [employer] Comment: Satisfactory for evaluation. Endocervical/transformation zone component present. Interpretation/ Result: Negative for intraepithelial lesion or malignancy. [facility] Cytotechnologis t: [facility] Comment: SXA, CT(ASCP) CT screening location: [place] [address] Review Cytotechnologis t: [facility] Comment: DMM, CT(ASCP) CT screening location: [place] [address] (Always Message) [facility] [employer] Comment: EXPLANATORY NOTE: The Pap is a [...] HPV nRNA E6/E7 Not Detected Not Detected [facility] [employer] Comment: Methodology: Archeologist Classical-Mediated Amplification This assay detects E6/E7 viral messenger RNA (mRNA) from 14 high-risk HPV types (16,18,31,33,35,39,45,51,52,56,58,59,66,68). Cervical sources are required for HPV testing. If a vaginal source from a patient who has had a total hysterectomy with removal of cervix was submitted, please contact the testing laboratory for alternative testing options. For additional information, please refer to http://education.[facility]/faq/PNZ950a4 (This link if provided for information/ educational purposes only.) NO COLLECTION DATE RECEIVED. WE HAVE USED THE DATE THE SPECIMEN WAS RECEIVED BY THIS LABORATORY THE COLLECTION DATE. IF THIS IS INCORRECT, PLEASE CONTACT CLIENT SERVICES. PHONE NUMBER: 10/19/2022 11: 48 PM EST Narrative [facility] - 10/24/2022 4:18 PM EST FASTING: UNKNOWN [facility] PATHOLOGY ORDERABLES Final R esult [facility] [address] [facility] [facility], [place] [address] [facility] [address] [facility], ([address]) [place] [address] from Last 3 Months or Most Recently Relevant to Health Maintenance Insurance [facility] C[facility] STAND ADULT Care Teams Cutter Operator Relationship Specialty Start Date End Date Nasrin Burrell ANP [address] [place] [address] PCP - General Family Medicine 05/15/22 Shaggy Huerta, PharmD [address] [place] [address] Pharmacist Internal Medicine 08/31/24 Mónica Magallon Research InterviewerRoll Changer 04/26/24
--- OUTSIDE RECORDS SUMMARY | 2025-05-22 12:33 | XMS_ITS | Encounter Summary ---
Author Organization [employer] Address [address] [facility] 7t [place] [address] Care Team Providers Care Field Service Consultant Name Role Phone Olivia Pino Primary Care Provider [phone] Shaggy Huerta PharmD Unavailable [phone] Reason for Visit * Reason Onset Date Comments Nurse Triage 12/08/2023 Encounter Details Date Type Department Care Team ([facility] st Contact Info) Description 12/08/2023 Telephone [facility] [address] [place], [place] [phone] Olivia Pino ANP [address] [place], [place] [phone] Nurse Triage Social History Tobacco Use Types [...] head injury The caller accepted this outcome Welsh speaker documented in this encounter Plan of Treatment Upcoming Encounters Date Type Department Care Team (Late st Contact Info) Description 07/13/2025 1:00 PM EDT Telemedicine [facility] [address] [place] [address] Shaggy Huerta, YuriD [address] [place] [address] 07/27/2025 10:00 AM EST Clinical Support [facility] [address] [place] [address] Digna Hicks RN [address] [place] [address] documented as of this encounter Goals Goal [...] documented as of this encounter Care Teams Field Service Consultant Relationship Specialty Start Date End Date Olivia Pino ANP [address] [place] [address] PCP - General Family Medicine 05/15/22 Shaggy Huerta, YuriD [address] [place] [address] Pharmacist Internal Medicine 08/31/24 Mónica Magallon Oven Press TenderCashier Credit 04/26/24 documented as of this encounter
--- OUTSIDE RECORDS SUMMARY | 2025-05-22 12:33 | XMS_ITS | Encounter Summary ---
Author Organization [employer] Address [address] [facility] 7t [place] [address] Care Team Providers Care Speech Language Pathologist Travel Name Role Phone Olivia Pino Primary Care Provider [phone] Shaggy Huerta PharmD Unavailable [phone] Reason for Visit * Reason Onset Date Comments Appointment Request 12/01/2024 Encounter Details Date Type Department Care Team ([facility] st Contact Info) Description 12/01/2024 Telephone [facility] [address] [place], [place] [phone] Olivia Pino ANP [address] [place], [place] [phone] Appointment Request Social History Tobacco Use Types [...] the past 12 months, has t he [employer], gas, oil or water [employer] threatened to shut off services in your [...] R/s Apt from 11/24/24. Contact pt at [phone] documented in this encounter Plan of Treatment Upcoming Encounters Date Type Department Care Team (Late st Contact Info) Description 07/13/2025 1:00 PM EDT Telemedicine [facility] [address] [place] [address] Shaggy Huerta, PharmD [address] [place] [address] 07/27/2025 10:00 AM EST Clinical Support [facility] [address] [place] [address] Digna Hicks, STEPHANIE [address] [place] [address] documented as of this encounter Goals Goal [...] documented as of this encounter Care Teams Speech Language Pathologist Travel Relationship Specialty Start Date End Date Olivia Pino ANP [address] [place] [address] PCP - General Family Medicine 05/15/22 Shaggy Huerta, YuriD [address] [place] [address] Pharmacist Internal Medicine 08/31/24 Mónica Magallon Compliance ConsultantPlant Controller 04/26/24 documented as of this encounter
--- OUTSIDE RECORDS SUMMARY | 2025-05-22 12:33 | XMS_ITS | Encounter Summary ---
Author Organization [employer] Address [address] [facility] 7t [place] [address] Care Team Providers Care Senior Project Manager Engineering Name Role Phone Olivia Pino Primary Care Provider [phone] Shaggy Huerta PharmD Unavailable [phone] Reason for Visit * Reason Comments Med Refill Encounter Details Date Type Department Care Team (Late Contact Info) Description 03/26/[address] [facility] [address] [place] [phone] Olivia Pino ANP 230 [place], [place] [phone] Pain Social History Tobacco Use Types Packs/Day [...] 1:00 PM EDT Telemedicine [address] [address] Shaggy Huerta, PharmD [address] [place] [address] 07/27/2025 10:00 AM EST Clinical Support [facility] [address] [place] [address] Digna Hicks, STEPHANIE [address] [place] [address] documented as of this encounter Goals Goal [...] as of this encounter Care Teams Senior Project Manager Engineering Relationship Specialty Start Date End Date Olivia Pino ANP [address] [place] [address] PCP - General Family Medicine 05/15/22 Shaggy Huerta, PharmD [address] [place] [address] Pharmacist Internal Medicine 08/31/24 Mónica Magallon Manager Of EngineeringTool Machine Set Up Operator 04/26/24 documented as of this encounter
--- OUTSIDE RECORDS SUMMARY | 2025-05-22 12:33 | XMS_ITS | Encounter Summary ---
Author Organization [employer] Address [address] [facility] 7t [place] [address] Care Team Providers Care Extruder Operator Helper Name Role Phone Olivia Pino Primary Care Provider [phone] Shaggy Huerta PharmD Unavailable [phone] Reason for Visit * Reason Onset Date Comments Med Refill 02/22/2025 Encounter Details Date Type Department Care Team (Late st Contact Info) Description 02/22/2025 Refill [facility] [address] [place], [place] [phone] Olivia Pino ANP [address] [place], [place] [phone] Social History Tobacco Use Types Packs/Day Years [...] the past 12 months, has t he [employer], gas, oil or water [employer] threatened to shut off services in your [...] Info) Description 07/13/2025 1:00 PM EDT Telemedicine [address] [address] Shaggy Huerta, PharmD [address] [place] [address] 07/27/2025 10:00 AM EST Clinical Support [facility] [address] [place] [address] Digna Hicks, RN [address] [place] [address] documented as of this encounter Goals Goal [...] documented as of this encounter Care Teams Extruder Operator Helper Relationship Specialty Start Date End Date Olivia Pino, WILIAN [address] [place] [address] PCP - General Family Medicine 05/15/22 Shaggy Huerta, YuriD [address] [place] [address] Pharmacist Internal Medicine 08/31/24 Mónica Magallon Outside MachinistOcean Freight Agent 04/26/24 documented as of this encounter
--- OUTSIDE RECORDS SUMMARY | 2025-05-22 12:33 | XMS_ITS | Encounter Summary ---
Author Organization [employer] Address [address] [facility] 7t [place] [address] Care Team Providers Care Boarding House Manager Name Role Phone Olivia Pino Primary Care Provider [phone] Shaggy Huerta PharmD Unavailable [phone] Reason for Visit * Reason Comments Med Refill Encounter Details Date Type Department Care Team (Late st Contact Info) Description 03/27/2025 Refill [facility] [address] [place], [place] [phone] Olivia Pino ANP [address], [place] [phone] nursing home (current) use of opiate analgesic; Chronic pain [...] the past 12 months, has t he [employer], gas, oil or water [employer] threatened to shut off services in your [...] Info) Description 07/13/2025 1:00 PM EDT Telemedicine [facility] [address] [place] [address] Shaggy Huerta, PharmD [address] [place] [address] 07/27/2025 10:00 AM EST Clinical Support [facility] [address] [place] [address] Digna Hicks RN [address] [place] [address] documented as of this encounter Goals Goal [...] as of this encounter Visit Diagnoses Diagnosis nursing home (current) use of opiate analgesic Chronic pain of right ankle documented in this encounter Additional Health Concerns Assessment Noted Time PHQ-9 Depression Total Score: 0 11/17/19 25 8:50 AM EST documented as of this encounter Care Teams Boarding House Manager Relationship Specialty Start Date End Date Olivia Pino, WILIAN [address] [place] [address] PCP - General Family Medicine 05/15/22 Shaggy Huerta, YuriD [address] [place] [address] Pharmacist Internal Medicine 08/31/24 Mónica Magallon Cigarette Making Machine Hopper FeederSpare Hand Carding 04/26/24 documented as of this encounter
--- OUTSIDE RECORDS SUMMARY | 2025-05-22 12:33 | XMS_ITS | Encounter Summary ---
Author Organization [employer] Address [address] [facility] 7t [place] [address] Care Team Providers Care Sanitation Superintendent Name Role Phone Olivia Pino Primary Care Provider [phone] Shaggy Huerta PharmD Unavailable [phone] Reason for Visit * Reason Onset Date Comments Med Refill 05/15/2025 Encounter Details Date Type Department Care Team ([facility] st Contact Info) Description 05/15/[address] [facility] 230 [place], [place] [phone] Olivia Pino ANP [address] [place], [place] [phone] Social History Tobacco Use Types Packs/Day Years [...] the past 12 months, has t he [employer], gas, oil or water [employer] threatened to shut off services in your [...] Info) Description 07/13/2025 1:00 PM EDT Telemedicine [address] [address] Shaggy Huerta, PharmD [address] [place] [address] 07/27/2025 10:00 AM EST Clinical Support [facility] [address] [place] [address] Digna Hicks, RN [address] [place] [address] documented as of this encounter Goals Goal [...] documented as of this encounter Care Teams Sanitation Superintendent Relationship Specialty Start Date End Date Olivia Pino, WILIAN [address] [place] [address] PCP - General Family Medicine 05/15/22 Shaggy Huerta, YuriD [address] [place] [address] Pharmacist Internal Medicine 08/31/24 Mónica Magallon Fan Blade AlignerTab Card Press Operator 04/26/24 documented as of this encounter
--- OUTSIDE RECORDS SUMMARY | 2025-05-22 12:33 | XMS_ITS | Encounter Summary ---
Author Organization [employer] Address [address] [facility] 7t [place] [address] Care Team Providers Care Ehs Specialist Name Role Phone Olivia Pino Primary Care Provider [phone] Shaggy Huerta PharmD Unavailable [phone] Reason for Visit * Reason Comments Med Refill Encounter Details Date Type Department Care Team ([facility] st Contact Info) Description 11/30/2024 Refill [facility] [address] [place], [place] [phone] Olivia Pino ANP 230 [place], [place] [phone] Pain Social History Tobacco Use Types Packs/Day [...] the past 12 months, has t he [employer], gas, oil or water [employer] threatened to shut off services in your [...] 07/13/2025 1:00 PM EDT Telemedicine [facility] [address] [place] [address] Shaggy Huerta, Shena [address] [place] [address] 07/27/2025 10:00 AM EST Clinical Support [facility] [address] [place] [address] Digna Hicks, STEPHANIE [address] [place] [address] documented as of this encounter Goals Goal Patient Goal Type Associated Problems Recent Progress Patient-Stated? Author Record your blood pressure once per day Blood Pressure No Yuridia Brown Blood Pressure < 140/90 Blood Pressure 130/90(2024 9:55 AM EDT) No Yuridia Brown Quit using tobacco (cigarettes, smokeless, etc) Tobacco Use No Coats, Nancy, PharmD Note: - Obtain patches from pharmacy [...] documented as of this encounter Care Teams Ehs Specialist Relationship Specialty Start Date End Date Olivia Pino ANP [address] [place] [address] PCP - General Family Medicine 05/15/22 Shaggy Huerta, Shena [address] [place] [address] Pharmacist Internal Medicine 08/31/24 Mónica Magallon Blood Bank CoordinatorRiver Expedition Guide 04/26/24 documented as of this encounter
--- OUTSIDE RECORDS SUMMARY | 2025-05-22 12:33 | XMS_ITS | Encounter Summary ---
Author Organization [employer] Address [address] [facility] 7t [place] [address] Care Team Providers Care Mine Expert Name Role Phone Olivia Pino Primary Care Provider [phone] Shaggy Huerta PharmD Unavailable [phone] Reason for Visit * Reason Comments Med Refill Encounter Details Date Type Department Care Team (Late st Contact Info) Description 04/26/2024 Refill [facility] 230 [place], [place] [phone] Olivia Pino ANP [address] [place], [place] [phone] Class 3 severe obesity with serious comorbidity [...] Info) Description 07/13/2025 1:00 PM EDT Telemedicine [address] [address] Shaggy Huerta, YuriD [address] [place] [address] 07/27/2025 10:00 AM EST Clinical Support [address] [address] Digna Hicks RN 505 [place] [address] documented as of this encounter Goals Goal [...] documented as of this encounter Care Teams Mine Expert Relationship Specialty Start Date End Date Olivia Pino ANP [address] [place] [address] PCP - General Family Medicine 05/15/22 Shaggy Huerta, Shena [address] [place] [address] Pharmacist Internal Medicine 08/31/24 Mónica Magallon Specialist IcuTechnical Sales Specialist 04/26/24 documented as of this encounter
[2025-05-22 13:25] LABS: Anion Gap 9 (12-20); Blood Urea Nitrogen 7 mg/dL (9-16); Calcium 9.3 mg/dL (8.4-10.2); Carbon Dioxide 29 mmol/L (22-29); Chloride 107 mmol/L (96-108); Estimated Glomerular Filt Rate > 60; Potassium 4.6 mmol/L (3.3-5.1); Sodium 140 mmol/L (135-145)
[2025-05-23 08:23] LABS: HIV Num 1 0.05 S/CO (0.00-0.99)
[2025-05-23 16:38] LABS: HIV RNA PCR Qn Copies NOT DETECTED copies/mL (NOT DETECTED); HIV RNA PCR Qn Log Copies NOT DETECTED (NOT DETECTED)
== END 2025-05-22 10:57 | disposition home or self-care (01) ==
LOC: HO.HHCL 10:56
PROVIDERS: PCP Nurse Practitioner Primary Care; Visit Provider Nurse Practitioner Primary Care
DX: I10 Essential (primary) hypertension (principal); Z11.4 Encounter for screening for human immunodeficiency virus [HIV]; Z20.6 Contact with and (suspected) exposure to human immunodeficiency virus [HIV]
CPT/HCPCS: 36415; 80048; 87389; 87536

== ENCOUNTER 2025-08-07 10:02 | Outpatient (REF) | payer MEDICAID, SELFPAY ==
[2025-08-07 12:28] LABS: HIV Num 1 0.05 S/CO (0.00-0.99)
[2025-08-07 12:37] LABS: Cholesterol 158 mg/dL (<200); HDL Cholesterol 43 mg/dL (>40); Triglycerides 73 mg/dL (<150)
[2025-08-07 12:49] LABS: Microalbum/Creatinine Ratio Ur 8.5 ug/mg cr (<30)
[2025-08-09 04:33] LABS: HIV RNA PCR Qn Copies NOT DETECTED copies/mL (NOT DETECTED); HIV RNA PCR Qn Log Copies NOT DETECTED (NOT DETECTED)
== END 2025-08-07 10:03 | disposition home or self-care (01) ==
LOC: HO.HHCL 10:02
PROVIDERS: PCP Nurse Practitioner Primary Care; Visit Provider Nurse Practitioner Primary Care
DX: I10 Essential (primary) hypertension (principal); E78.00 Pure hypercholesterolemia, unspecified; Z20.5 Contact with and (suspected) exposure to viral hepatitis; W46.0XXA Contact with hypodermic needle, initial encounter
CPT/HCPCS: 36415; 80061; 82043; 82570; 87389; 87536